=== PATIENT | female | born 1970 | race Two or more races ===

== ENCOUNTER → 2019-10-20 | Emergency (ER) | payer OTHER ==
[~2019-10-20] VITALS: Ht 165.1 cm; Wt 90.7 kg
[~2019-10-20] MED LIST: HYDROmorphone HCL 2 MG/ML VL IM ONE; IBUPROFEN 800 MG TAB PO ONE; PROMETHAZINE W/CODEINE 5 ML ORAL SYRUP PO ONE; levoFLOXacin 500 MG TAB PO ONE
[2019-10-20 13:20] VITALS: BP 135/81
[2019-10-20 16:32] LABS: Urine Bacteria MANY /hpf (None Seen); Urine Blood 1+ /uL (Negative); Urine Specific Gravity 1.017 (1.001-1.035); Urine WBC 227 /hpf (0 - 5); Urine WBC Clumps PRESENT /hpf (None Seen)
== END | disposition home or self-care (01) ==
LOC: ER 10:42
DX: R07.89 Other chest pain (principal); J40 Bronchitis, not specified as acute or chronic; E11.9 Type 2 diabetes mellitus without complications; I10 Essential (primary) hypertension; Z90.49 Acquired absence of other specified parts of digestive tract
CPT/HCPCS: 71046; 81001; 87501; 87804; 93005

== ENCOUNTER 2024-10-05 12:27 | Emergency (ER) | payer OTHER, BC ==
[~2024-10-05] VITALS: Ht 167.6 cm; Wt 113.5 kg
[2024-10-05] MEDS: levETIRAcetam 1000 mg/100ml 100 ML IV ONE (13:10)
[2024-10-05] MEDS: SODIUM CHLORIDE 0.9% 1,000 ML IV ONE ×2 (13:10→17:26)
--- NOTE | 2024-10-05 13:13 | ED.PDOC ---
HPI (NEURO) HPI Comments 53Y F with PMHx DM, HTN, and CVA presents to ED via EMS for chief complaint seizure x today. Per EMS, tonic-clonic seizure was witnessed by family who stated pt had been seizing for approximately 10 minutes prior to EMS arrival on scene. Upon EMS arrival to scene, SpO2 was in the high 80s so pt was placed on 2L/min O2 via NC. EMS states pt was actively seizing when they arrived and provided pt with Versed 5mg IM and 2.5mg IV. Upon ED arrival, pt began to seize again and was given another Versed 2.5mg IV. Per EMS, family states seizures began after CVA. Unknown when CVA occurred. Pt is currently taking Lorazepam. Chief Complaint: Seizure Time Seen by MD: 12:45 Reviewed Notes: Nurses Notes, Plate Keeper Notes, Medications, Allergies Information Source: Emergency Med Personnel Mode of Arrival: EMS Brought in by: EMS Severity: Moderate Dizziness/Weakness Severity: Unable to do activities Headache Severity: None Timing: Minutes Duration: Since onset Prehospital treatment: Oxygen, Other (versed 5mg IM, 2.5mg IV, 2.5mg IV) Seizure Quality: Tonic-clonic Onset: At rest Circumstances: Spontaneous Symptoms: Other History of: CVA, DM, Hypertension Modifying factors: Nothing Associated Signs and Symptoms: Other Past Medical History PAST MEDICAL HISTORY: CVA, DM, HTN, Seizures Past Medical History (Other): Cyclic vomiting syndrome Surgical History: Cholecystectomy, Hysterectomy EXTERIOR [employer]OR INST[employer]ER History: 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 No meningeal signs.) Respiratory: Decreased Breath Sounds, No Accessory Muscle Use, No Respiratory Distress Cardiovascular: No Edema, No JVD Breast Exam: Deferred Gastrointestinal: Non Tender, Soft Genitalia: Deferred Pelvic: Deferred Rectal: Deferred Extremities: Normal inspection, Normal range of motion, Non-tender, No pedal edema Neurologic: Other (Somnolent/postictal, arousable, moves all extremities, no facial asymmetry or dysarthria, no gross focal deficit.) Cerebellar Function: NOT DONE Reflexes: NOT DONE Skin: Dry, Normal Color, Warm Lymphatic: NOT DONE EKG EKG : Comments Sinus tach, rate 114, normal intervals, normal axis, left anterior fascicular block, nonspecific T changes. Was a procedure done? Was a procedure done?: No Differential Diagnosis (SZ) Seizure: Psychogenic Seizure, Anticonvulsant Withdrawl, Closed Head Injury, CVA/TIA, Hypoglycemia, Epilepsy-Break Through, Epilepsy-Status CVA: CVA, TIA Headache: Carbon Monoxide Toxicity, Epidural Hemorrhage, Intracerebral Hemorrhage, Subarachnoid Hemorrhage, Subdural Hemorrhage X-Ray, Labs, Meds, VS Vital Signs Date Time Temp Pulse Resp B/P (MAP) Pulse Ox O2 Delivery O2 Flow Rate FiO2 10/05/24 17:49 98.4 99 13 100/65 (77) 95 98.4 10/05/24 17:27 102 16 122/77 (92) 96 10/05/24 17:26 101 14 122/77 10/05/24 16:06 103 12 94/56 (69) 97 10/05/24 16:00 105 10/05/24 15:52 104 11 94/56 10/05/24 15:14 104 17 136/114 10/05/24 14:53 198/116 10/05/24 14:01 98.9 104 16 205/117 (146) 99 98.9 10/05/24 14:01 104 12 99 Nasal Cannula* 2 28 10/05/24 12:44 114 10/05/24 12:27 102.1 112 12 130/81 (97) 99 Lab Test 10/05/24 16:15 10/05/24 14:28 10/05/24 13:43 10/05/24 13:16 Range/Units Influenza Type A Antigen Negative Negative Influenza Type B Antigen Negative Negative SARS-CoV-2 Antigen (Rapid) Negative NEGATIVE Troponin I High Sensitivity 20 18 </=34 ng/L Urine Color Light-yellow Yellow Urine Clarity Clear Clear Urine pH 7.0 5.0-9.0 Urine Specific [place] 1.019 1.001-1.035 Urine Protein 3+ H Negative Urine Ketones 1+ H Negative Urine Blood 1+ H Negative /uL Urine Nitrite Negative Negative Urine Bilirubin Negative Negative Urine Urobilinogen Normal Negative mg/dL Urine Leukocyte Esterase Negative Negative /uL Urine RBC 14 0 - 4 /hpf Urine Microscopic WBC 1 0-5 /HPF Urine Squamous Epithelial Cells None seen <5 /hpf Urine Bacteria None seen None Seen /hpf Urine Glucose 4+ H Normal mg/dL White Blood Count 10.5 4.4-10.8 10^3/uL Red Blood Count 4.66 4.0-5.20 10^6/uL Hemoglobin 14.4 12.2-16.2 g/dL Hematocrit 41.9 36.0-46.0 % Mean Corpuscular Volume 90.0 80.0-100.0 fL Mean Corpuscular Hemoglobin 31.0 28.0-32.0 pg Mean Corpuscular Hemoglobin Concent 34.5 32.0-36.0 g/dL Red Cell Distribution Width 13.3 11.8-14.3 % Platelet Count 250 140-450 10^3/uL Mean Platelet Volume 9.4 6.9-10.8 fL Neutrophils (%) (Auto) 86.4 H 37.0-80.0 % Lymphocytes (%) (Auto) 9.4 L 10.0-50.0 % Monocytes (%) (Auto) 3.5 0.0-12.0 % Eosinophils (%) (Auto) 0.4 0.0-7.0 % Basophils (%) (Auto) 0.3 0.0-2.0 % Neutrophils # (Auto) 9.1 H 1.6-8.6 10 ^3/uL Lymphocytes # (Auto) 1.0 0.4-5.4 10 ^3/uL Monocytes # (Auto) 0.4 0-1.3 10 ^3/uL Eosinophils # (Auto) 0 0-0.8 10 ^3/uL Basophils # (Auto) 0 0-0.2 10 ^3/uL Nucleated Red Blood Cells 0.1 % Sodium Level 133 L 136-145 mmol/L Potassium Level 5.1 3.5-5.1 mmol/L Chloride Level 99 98-107 mmol/L Carbon Dioxide Level 26 20-31 mmol/L Anion Gap 8 5-15 Blood Urea Nitrogen 18 9-23 mg/dL Creatinine 1.33 H 0.550-1.02 mg/dL Glomerular Filtration Rate Calc 48 >90 mL/min BUN/Creatinine Ratio 13.5 10.0-20.0 Serum Glucose 435 *H 74-106 mg/dL Lactic Acid Level 1.7 0.4-2.0 mmol/L Calcium Level 9.8 8.7-10.4 mg/dL B-Type Natriuretic Peptide 21.36 0-100 pg/mL Beta HCG, Quantitative 4.6 H 1.5-4.2 mIU/mL Test 10/05/24 12:53 10/05/24 12:52 Range/Units POC Glucose 402 *H 437 *H 70-106 mg/dl Current Medications Medications (Trade) Dose Ordered Sig/Gordon Route Start Time Stop Time Status Last Admin Sodium Chloride 1,000 ml @ 1,000 mls/hr Q1H ONCE IV 10/05/24 13:00 10/05/24 13:59 DC 10/05/24 13:10 Levetiracetam 100 ml @ 400 mls/hr ONCE ONCE IV 10/05/24 13:00 10/05/24 13:14 DC 10/05/24 13:10 Hydralazine HCl (Apresoline Injection) 10 mg ONCE ONCE IV 10/05/24 15:00 10/05/24 15:01 DC 10/05/24 14:53 Ondansetron HCl (Zofran) 4 mg ONCE ONCE IV 10/05/24 15:15 10/05/24 15:16 DC 10/05/24 15:13 Hydromorphone HCl (Dilaudid Injection) 0.5 mg ONCE ONCE IV 10/05/24 15:15 10/05/24 15:16 DC 10/05/24 15:14 Hydromorphone HCl (Dilaudid Injection) 0.5 mg ONCE ONCE IV 10/05/24 15:30 10/05/24 15:31 DC 10/05/24 17:26 Sodium Chloride 1,000 ml @ 1,000 mls/hr Q1H ONCE IV 10/05/24 15:30 10/05/24 16:29 DC 10/05/24 17:26 ORDERING PHYSICIAN: DYLLAN GUADALUPE MD PROCEDURE(s): HWOCT - HEAD WITHOUT CONTRAST REASON: seiz ORDER NUMBER(s): [id number], ACCESSION NUMBER(s): [id number] EXAM: CT Head Without Intravenous Contrast CLINICAL INDICATION: seiz TECHNIQUE: Axial computed tomography images of the head/brain without intravenous contrast. This CT exam was performed using one or more of the following dose reduction techniques: automated exposure control, adjustment of the mA and/or kV according to patient size, and/or use of iterative reconstruction technique. CONTRAST: RADIATION DOSE: CTDIvol = 54.73 mGy, DLP = 877.35 mGy-cm COMPARISON: None FINDINGS: BRAIN AND EXTRA-AXIAL SPACES: Unremarkable. No hemorrhage. No significant white matter disease. No edema. No ventriculomegaly. BONES/JOINTS: Unremarkable. No acute fracture. SOFT TISSUES: Unremarkable. SINUSES: Unremarkable as visualized. No acute sinusitis. MASTOID AIR CELLS: Unremarkable as visualized. No mastoid effusion. OTHER FINDINGS: . None. IMPRESSION: No acute intracranial hemorrhage, midline shift or mass effect. RING PHYSICIAN: DYLLAN GUADALUPE MD PROCEDURE(s): CXRP - CHEST PORTABLE REASON: fever, sz ORDER NUMBER(s): [id number], ACCESSION NUMBER(s): [id number] EXAM: XY CHEST PORTABLE HISTORY: fever, sz COMPARISON: Chest x-ray dated 10/20/2019. TECHNIQUE: Portable AP view of the chest was performed. FINDINGS: There is central interstitial prominence. No pneumothorax or consolidative infiltrates. Right hemidiaphragm is mildly elevated. The heart is borderline enlarged. There is abundant overlying adipose tissue. IMPRESSION: Central interstitial prominence may be due to reactive airways disease or CHF. This appearance may be exaggerated by abundant overlying soft tissue. RING PHYSICIAN: DYLLAN GUADALUPE MD PROCEDURE(s): ABPL - CT AB PEL WO CON-NO ORAL OR IV REASON: abd pain n/v fever ORDER NUMBER(s): [id number], ACCESSION NUMBER(s): [id number] Exam: CT CT AB PEL WO CON-NO ORAL OR IV History: abd pain n/v fever Comparison Study: None available TECHNIQUE: Multidetector CT of the abdomen and pelvis was performed from lung ba ses to pubic symphysis. Imaging was performed without IV contrast. Axial, coronal, and sagittal multiplanar reformats were obtained from the axial data set by the technologist. RADIATION DOSE: DLP 1505.4 mGy.cm; CTDI vol 27.63 mGy. Findings: Lungs: The lung bases are clear. Heart: No cardiomegaly or pericardial effusion. Liver: Fatty infiltration of the liver. 0.5 cm calcification near the caudate. The liver measures 24.6 cm in craniocaudal dimension. Gallbladder: Unremarkable. Spleen: Unremarkable Pancreas: Unremarkable Adrenals: Unremarkable Kidneys: Unremarkable GI tract: Unremarkable : The urinary bladder is decompressed via Cantu catheter. Vasculature: Mild aortoiliac atherosclerosis. Lymphadenopathy: Absent Peritoneum: No ascites Musculoskeletal: Unremarkable Soft tissues: Unremarkable Impression: 1. No acute abdominopelvic abnormalities. 2. Hepatomegaly with hepatic steatosis. X-Ray, Labs, Meds, VS Comment 53-year-old female with a history of hypertension, diabetes, CVA and seizures brought in by EMS after witnessed seizure activity, resolved with IM and IV Versed . On re-evaluation when patient was alert, she stated she was having abdominal pain, nausea and vomiting all morning. She states she has a history of cyclic vomiting for which she usually receives Dilaudid and Zofran. She denies any recent sick contacts, diarrhea or dysuria. Vitals remarkable for heart rate 112, temperature 102.1, BP 198/116 Exam remarkable for postictal state, arousable, moves all extremities, no gross focal deficit Rhythm Strip independently interpreted by me: Sinus tach, rate 112, no ectopy. Head CT IMPRESSION: No acute intracranial hemorrhage, midline shift or mass effect. Chest x-ray IMPRESSION: Central interstitial prominence may be due to reactive airways disease or CHF. This appearance may be exaggerated by abundant overlying soft tissue. CT abdomen and pelvis Impression: 1. No acute abdominopelvic abnormalities. 2. Hepatomegaly with hepatic steatosis. CBC unremarkable, metabolic panel remarkable for sodium 133, creatinine 1.33, glucose 435, normal anion gap, UA protein, blood and ketones, 4+ glucose Patient treated with the following in the ED: 1 L 0.9 normal saline IV bolus x2, Keppra 1 g IV, Tylenol 975 mg GA, Dilaudid 0.5 mg IV x2, Zofran 4 mg IV On re-evaluation, patient is more alert and conversant. Vitals have improved. LP was considered, however patient denies headache, neck or back pain, has no tenderness or meningeal signs on exam, and white count is normal. I do not feel LP is emergently indicated. Plan is to admit/transfer the patient for further investigation into her febrile illness, and for ongoing seizure prophylaxis. Time of 1ST Reevaluation: 13:15 Reevaluation 1ST: Unchanged Patient Education/Counseling: Other (postictal) Family Education/Counseling: No Family Present Departure 1 Departure Time of Disposition: 15:16 Impression: Primary Impression: Seizure Additional Impressions: Febrile illness Hyperglycemia Hyponatremia Abdominal pain Qualified Codes: R10.84 - Generalized abdominal pain Nausea and vomiting Qualified Codes: R11.2 - Nausea with vomiting, unspecified Disposition: 02 SHORT TERM HOSPITAL Admit to: [facility] Condition: Guarded Critical Care Note Critical Care Time?: No Stability Stability form required: No Heart Score Heart Score: Heart Score Response (Comments) Value History N/A 0 EKG N/A 0 Age N/A 0 Risk Factors N/A 0 Troponin N/A 0 Total 0 I personally scribed for DYLLAN GUADALUPE MD ([email or web address]) on 10/05/24 at 13:13. Electronically submitted by Beverly Evans ([email or web address]). I personally scribed for DYLLAN GUADALUPE MD ([email or web address]) on 10/05/24 at 14:55. Electronically submitted by Beverly Evans ([email or web address]). I personally scribed for DYLLAN GUADALUPE MD ([email or web address]) on 10/05/24 at 16:25. Electronically submitted by Beverly Evans ([email or web address]). DYLLAN GUADALUPE MD Oct 05, 2024 13:13
[2024-10-05 13:48] LABS: Chloride 99 mmol/L (98-107)
[2024-10-05 13:49] LABS: Anion Gap 8 (5-15); Calcium 9.8 mg/dL (8.7-10.4); Carbon Dioxide 26 mmol/L (20-31)
[2024-10-05 13:50] LABS: Basophils # (auto) 0 10 ^3/uL (0-0.2); Basophils % (auto) 0.3 % (0.0-2.0); Eosinophils # (auto) 0 10 ^3/uL (0-0.8); Eosinophils % (auto) 0.4 % (0.0-7.0); Hematocrit 41.9 % (36.0-46.0); Hemoglobin 14.4 g/dL (12.2-16.2); Lymphocytes % (auto) 9.4 % (10.0-50.0); Mean Corpuscular Hgb Conc. 34.5 g/dL (32.0-36.0); Monocytes # (auto) 0.4 10 ^3/uL (0-1.3); Monocytes % (auto) 3.5 % (0.0-12.0); Neutrophils # (auto) 9.1 10 ^3/uL (1.6-8.6); Neutrophils % (auto) 86.4 % (37.0-80.0); Nucleated Red Blood Cells % 0.1 %; Platelet Count (auto) 250 10^3/uL (140-450); Red Blood Cells 4.66 10^6/uL (4.0-5.20); Red Cell Distribution Width 13.3 % (11.8-14.3); White Blood Cell 10.5 10^3/uL (4.4-10.8)
[2024-10-05 13:54] LABS: BUN/Creatinine Ratio 13.5 (10.0-20.0); Blood Urea Nitrogen 18 mg/dL (9-23)
[2024-10-05 13:55] LABS: Urine Bacteria None Seen /hpf (None Seen)
[2024-10-05] MEDS: ACETAMINOPHEN 650 MG RECT SUPP PR ONE (14:00)
[2024-10-05 14:01] VITALS: PULSE 104; RESP 12; O2SAT 99
[2024-10-05 14:01] LABS: Potassium 5.1 mmol/L (3.5-5.1); Sodium 133 mmol/L (136-145)
[2024-10-05 14:02] LABS: Glucose 435 mg/dL (74-106)
[2024-10-05 14:23] LABS: Urine Blood 1+ /uL (Negative); Urine Clarity Clear (Clear); Urine Color Light-Yellow (Yellow); Urine Protein, UAD 3+ (Negative); Urine Specific Gravity 1.019 (1.001-1.035); Urine Squamous Epithelial Cell None Seen /hpf (<5); Urine Urobilinogen Normal (Negative); Urine WBC 1 /HPF (0-5)
--- NOTE | 2024-10-05 14:36 | DVH ---
EXAM: XY CHEST PORTABLE HISTORY: fever, sz COMPARISON: Chest x-ray dated 10/20/2019. TECHNIQUE: Portable AP view of the chest was performed. FINDINGS: There is central interstitial prominence. No pneumothorax or consolidative infiltrates. Right hemidia phragm is mildly elevated. The heart is borderline enlarged. There is abundant overlying adipose tiss ue. IMPRESSION: Central interstitial prominence may be due to reactive airways disease or CHF. This appearance may be exaggerated by abundant overlying soft tissue.
--- NOTE | 2024-10-05 14:52 | DVH ---
EXAM: CT Head Without Intravenous Contrast CLINICAL INDICATION: seiz TECHNIQUE: Axial computed tomography images of the head/brain without intravenous contrast. This CT exam was performed using one or more of the following dose reduction techniques: automated exposure control, adjustment of the mA and/or kV according to patient size, and/or use of iterative reconstru ction technique. CONTRAST: RADIATION DOSE: CTDIvol = 54.73 mGy, DLP = 877.35 mGy-cm COMPARISON: None FINDINGS: BRAIN AND EXTRA-AXIAL SPACES: Unremarkable. No hemorrhage. No significant white matter disease. No edema. No ventriculomegaly. BONES/JOINTS: Unremarkable. No acute fracture. SOFT TISSUES: Unremarkable. SINUSES: Unremarkable as visualized. No acute sinusitis. MASTOID AIR CELLS: Unremarkable as visualized. No mastoid effusion. OTHER FINDINGS: . None. IMPRESSION: No acute intracranial hemorrhage, midline shift or mass effect.
[2024-10-05] MEDS: hydrALAZINE HCL 20 MG/ML VL IV ONE (14:53)
[2024-10-05] MEDS: hydrALAZINE HCL 20 MG/ML VL ONE (14:53)
[2024-10-05] MEDS: ONDANSETRON HCL 4 MG/2 ML VIAL IV ONE (15:13)
[2024-10-05] MEDS: HYDROmorphone HCL 2 MG/ML VL/or syr IV ONE ×2 (15:14→17:26)
--- NOTE | 2024-10-05 16:09 | DVH ---
Exam: CT CT AB PEL WO CON-NO ORAL OR IV History: abd pain n/v fever Comparison Study: None available TECHNIQUE: Multidetector CT of the abdomen and pelvis was performed from lung bases to pubic symphysi s. Imaging was performed without IV contrast. Axial, coronal, and sagittal multiplanar reformats were obtained from the axial data set by the technologist. RADIATION DOSE: DLP 1505.4 mGy.cm; CTDI vol 27.63 mGy. Findings: Lungs: The lung bases are clear. Heart: No cardiomegaly or pericardial effusion. Liver: Fatty infiltration of the liver. 0.5 cm calcification near the caudate. The liver measures 24. 6 cm in craniocaudal dimension. Gallbladder: Unremarkable. Spleen: Unremarkable Pancreas: Unremarkable Adrenals: Unremarkable Kidneys: Unremarkable GI tract: Unremarkable : The urinary bladder is decompressed via Cantu catheter. Vasculature: Mild aortoiliac atherosclerosis. Lymphadenopathy: Absent Peritoneum: No ascites Musculoskeletal: Unremarkable Soft tissues: Unremarkable Impression: 1. No acute abdominopelvic abnormalities. 2. Hepatomegaly with hepatic steatosis.
[2024-10-05] MEDS: cefTRIAXone 1GM/50ML D5W 50 ML IV ONE (16:45)
[2024-10-05 16:56] LABS: COVID19 ANTIGEN SOFIA FIA NEGATIVE (NEGATIVE); Rapid Influenza A Negative (Negative); Rapid Influenza B Negative (Negative)
[2024-10-05 17:49] VITALS: BP 100/65; PULSE 99; RESP 13; TEMP 98.4; O2SAT 95
--- NOTE | 2024-10-07 13:58 | ECG ---
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
== END 2024-10-05 18:07 | disposition short-term general hospital (02) ==
LOC: EDUNIT# 12:27 → ER 12:27 → EDBD 12:27 → ER 17:46
DX: R56.9 Unspecified convulsions (principal); R50.9 Fever, unspecified; E87.1 Hypo-osmolality and hyponatremia; R10.9 Unspecified abdominal pain; R11.2 Nausea with vomiting, unspecified; E11.65 Type 2 diabetes mellitus with hyperglycemia; I10 Essential (primary) hypertension; Z90.49 Acquired absence of other specified parts of digestive tract; Z90.710 Acquired absence of both cervix and uterus; Z86.73 Personal history of transient ischemic attack (TIA), and cerebral infarction without residual deficits; Z79.899 Other long term (current) drug therapy; Z20.822 Contact with and (suspected) exposure to COVID-19
CPT/HCPCS: 36415; 70450; 71045; 74176; 80048; 81001; 82962; 83605; 83880; 84484; 84702; 85025; 87040; 87426; 87804; 93005; 96361; 96365; 96375; 96376; 99285; J0360; J1171; J1953; J2405; J7030

== ENCOUNTER 2024-11-28 18:55 | Emergency (ER) | payer OTHER, BC ==
[~2024-11-28] VITALS: Ht 170.2 cm; Wt 123.0 kg
--- NOTE | 2024-11-28 19:09 | ED.PDOC ---
History of Present Illness HPI Comments 54-year-old female with a history of hypertension, diabetes, seizures and cyclic vomiting syndrome brought in by EMS from home status post seizure. Patient reported to EMS that she has had 3 seizures today and 1 yesterday. She also reports being compliant with her Keppra. She states she has had an exacerbation of chronic intermittent abdominal pain which is pressure-like and associated with nausea and vomiting. She states these symptoms are due to cyclic vomiting syndrome, not due to marijuana use. She denies fever, diarrhea, constipation or dysuria. Denies any headache, vision changes, dizziness or focal weakness. Chief Complaint: Seizure Time Seen by MD: 18:58 Allergies: Coded Allergies: Acetaminophen (Verified Allergy, Unknown, 10/20/19) Hydrocodone (Verified Allergy, Unknown, 10/20/19) Metformin (Verified Allergy, Unknown, 10/20/19) Metoclopramide (Verified Allergy, Unknown, 10/20/19) Penicillins (Verified Allergy, Unknown, 10/20/19) Past Medical History PAST MEDICAL HISTORY: CVA, DM, HTN, Seizures Past Medical History (Other): Cyclic vomiting Surgical History: Cholecystectomy, Hysterectomy METALIZING SUPERVISOR History: No Pertinent METALIZING SUPERVISOR History Family History Family History: Reviewed,noncontributory to illness Social History Smoker: Non-Smoker Alcohol: Denies ETOH Use Drugs: Denies Drug Use Lives In: Home All Other Systems: Reviewed and Negative (Comprehensive systems review obtained and negative except for what is stated in the HPI.) Physical Exam General Appearance: No Apparent Distress, Obese HEENT: Other (Pupils and face symmetric. Moist mucous membranes.) Neck: Full Range of Motion (ty-seven), Normal Inspection Respiratory: Lungs Clear, No Accessory Muscle Use, No Respiratory Distress, Normal Breath Sounds Cardiovascular: No Edema, No JVD, Regular Rate/Rhythm Breast Exam: Deferred Gastrointestinal: Diffuse, Soft, Tenderness Genitalia: Deferred Pelvic: Deferred Rectal: Deferred Extremities: Normal inspection, Normal range of motion, Non-tender, No pedal edema Neurologic: Alert (Oriented x4), Normal Affect, Normal Mood, Other (Ambulatory to and from the restroom without difficulty) Cerebellar Function: NOT DONE Reflexes: NOT DONE Skin: Dry, Normal Color, Warm Lymphatic: NOT DONE Was a procedure done? Was a procedure done?: No Differential Dx Considerations may include: Breakthrough seizure, electrolyte imbalance, infection such as UTI or viral syndrome, gastroenteritis, gastritis, ulcer disease, pancreatitis, biliary tract disease, colitis, diverticular disease, hypovolemia, arrhythmia, VT, among others X-Ray, Labs, Meds, VS Vital Signs Date Time Temp Pulse Resp B/P (MAP) Pulse Ox O2 Delivery O2 Flow Rate FiO2 11/28/24 20:37 99 21 94 Nasal Cannula* 4 36 11/28/24 20:10 91 16 137/81 (99) 97 11/28/24 20:00 89 11/28/24 19:30 98.4 99 21 195/102 (133) 94 98.4 11/28/24 19:04 98.6 108 18 186/112 (136) 97 98.6 Lab Test 11/28/24 20:58 11/28/24 20:16 11/28/24 19:25 Range/Units POC Glucose 373 H 70-106 mg/dl Troponin I High Sensitivity 28 31 </=34 ng/L White Blood Count 7.5 4.4-10.8 10^3/uL Red Blood Count 4.82 4.0-5.20 10^6/uL Hemoglobin 14.5 12.2-16.2 g/dL Hematocrit 43.3 36.0-46.0 % Mean Corpuscular Volume 89.8 80.0-100.0 fL Mean Corpuscular Hemoglobin 30.1 28.0-32.0 pg Mean Corpuscular Hemoglobin Concent 33.5 32.0-36.0 g/dL Red Cell Distribution Width 13.9 11.8-14.3 % Platelet Count 264 140-450 10^3/uL Mean Platelet Volume 8.8 6.9-10.8 fL Neutrophils (%) (Auto) 88.6 H 37.0-80.0 % Lymphocytes (%) (Auto) 6.4 L 10.0-50.0 % Monocytes (%) (Auto) 4.7 0.0-12.0 % Eosinophils (%) (Auto) 0.0 0.0-7.0 % Basophils (%) (Auto) 0.3 0.0-2.0 % Neutrophils # (Auto) 6.7 1.6-8.6 10 ^3/uL Lymphocytes # (Auto) 0.5 0.4-5.4 10 ^3/uL Monocytes # (Auto) 0.4 0-1.3 10 ^3/uL Eosinophils # (Auto) 0 0-0.8 10 ^3/uL Basophils # (Auto) 0 0-0.2 10 ^3/uL Nucleated Red Blood Cells 0.0 % Sodium Level 141 136-145 mmol/L Potassium Level 3.9 3.5-5.1 mmol/L Chloride Level 106 98-107 mmol/L Carbon Dioxide Level 20 20-31 mmol/L Anion Gap 15 5-15 Blood Urea Nitrogen 20 9-23 mg/dL Creatinine 1.20 H 0.550-1.02 mg/dL Glomerular Filtration Rate Calc 54 >90 mL/min BUN/Creatinine Ratio 16.7 10.0-20.0 Serum Glucose 459 *H 74-106 mg/dL Calcium Level 9.7 8.7-10.4 mg/dL Total Bilirubin 0.5 0.2-1.0 mg/dL Aspartate Amino Transferase (AST) 17 13-40 U/L Alanine Aminotransferase (ALT) 21 7-40 U/L Alkaline Phosphatase 130 H 46-116 U/L B-Type Natriuretic Peptide 71.94 0-100 pg/mL Total Protein 7.5 5.7-8.2 g/dL Albumin 4.4 3.2-4.8 g/dL Lipase 31 12-53 U/L Current Medications Medications (Trade) Dose Ordered Sig/Gordon Route Start Time Stop Time Status Last Admin Sodium Chloride 1,000 ml @ 1,000 mls/hr Q1H ONCE IV 11/28/24 19:00 11/28/24 19:59 DC 11/28/24 19:23 Ondansetron HCl (Zofran) 4 mg ONCE ONCE IV 11/28/24 19:15 11/28/24 19:16 DC 11/28/24 19:40 Pantoprazole Sodium (Protonix) 40 mg ONCE ONCE IV 11/28/24 19:15 11/28/24 19:16 DC 11/28/24 19:40 Levetiracetam 100 ml @ 400 mls/hr ONCE ONCE IV 11/28/24 19:15 11/28/24 19:29 DC 11/28/24 19:23 Lorazepam (Ativan Inj) 2 mg ONCE ONCE IV 11/28/24 19:30 11/28/24 19:31 DC 11/28/24 19:24 Insulin Human Regular (InsuLIN R) 10 units ONCE ONCE IV 11/28/24 20:45 11/28/24 20:50 DC 11/28/24 20:58 PROCEDURE(s): CXRP - CHEST PORTABLE REASON: sz ORDER NUMBER(s): [id number], ACCESSION NUMBER(s): [id number] CHEST RADIOGRAPH Indication: sz Technique: Single frontal view of the chest was obtained COMPARISON: XY CHEST PORTABLE on DOS: 10/05/24 FINDINGS / IMPRESSION: Lines and Tubes: None Lungs: Mild increased pulmonary vascularity, peribronchial thickening and perihilar opacities consistent with mild pulmonary edema. Pleura: No effusion. No pneumothorax. Cardiomediastinal contours: Unremarkable EDURE(s): ABPL - CT AB PEL WO CON-NO ORAL OR IV REASON: diffuse abd pain n/v ORDER NUMBER(s): [id number], ACCESSION NUMBER(s): [id number] EXAM: CT CT AB PEL WO CON-NO ORAL OR IV INDICATION: diffuse abd pain n/v TECHNIQUE: Volumetric multidetector CT images of the abdomen and pelvis were obtained without contrast. All CT scans at this facility use dose modulation, iterative reconstruction, and/or weight based dosing when appropriate to reduce radiation dose to as low as reasonably achievable. COMPARISON: CT CT AB PEL WO CON-NO ORAL OR IV on DOS: 10/05/24 FINDINGS: LOWER CHEST: The partially visualized lung bases are clear without a pleural effusion. The cardiac size is normal without pericardial effusion. LIVER: Normal hepatic size without suspicious focal lesion. GALLBLADDER AND BILIARY TREE: Cholecystectomy SPLEEN: Unremarkable. PANCREAS: Unremarkable. ADRENAL GLANDS: Unremarkable KIDNEYS: No hydronephrosis. No nephroureterolithiasis. Mild right pelviectasis and mild right hydroureter. Distal right ureter is poorly visualized. BLADDER: Bladder is distended without wall thickening REPRODUCTIVE ORGANS: Hysterectomy. BOWEL/MESENTERY: Stomach is normal. No CT evidence of bowel obstruction. [id number] stool burden. Nonvisualization of the appendix. Postsurgical changes with suspicious anastomosis at the level of the high rectum. ASCITES: Absent LYMPHADENOPATHY: No pathologically enlarged lymph nodes by CT size criteria VASCULATURE: No aneurysmal dilatation. ABDOMINAL WALL: Unremarkable. MUSCULOSKELETAL: No acute fracture or aggressive focal osseous lesion. Multifocal degenerative change of the visualized spine. IMPRESSION: 1. No CT evidence of an acute abdominal/pelvic process. Stool burden. Correlate for constipation. Bladder is distended without abnormal bladder wall thickening. Subsequent mild right pelviectasis and mild right hydroureter. X-Ray, Labs, Meds, VS Comment 54-year-old female with a history of seizures, hypertension, diabetes, morbid obesity and cyclic vomiting brought in by EMS from home status post multiple seizures starting yesterday, associated with nausea, vomiting and abdominal pain which patient states is characteristic of prior exacerbations of cyclic vomiting syndrome. Vitals remarkable for heart rate 108, BP 186/112 Exam remarkable for diffuse abdominal tenderness to palpation. No rebound or guarding. Rhythm strip independently interpreted by me: Sinus tach, rate 108, no ectopy. Chest x-ray FINDINGS / IMPRESSION: Lines and Tubes: None Lungs: Mild increased pulmonary vascularity, peribronchial thickening and perihilar opacities consistent with mild pulmonary edema. Pleura: No effusion. No pneumothorax. Cardiomediastinal contours: Unremarkable CT abdomen and pelvis IMPRESSION: 1. No CT evidence of an acute abdominal/pelvic process. Stool burden. Correlate for constipation. Bladder is distended without abnormal bladder wall thickening. Subsequent mild right pelviectasis and mild right hydroureter. CBC unremarkable, CMP remarkable for creatinine 1.2, glucose 459, normal anion gap, lipase normal, BNP and troponin negative, UA pending Patient treated with the following in the ED: Ativan 2 mg IV, 1 L 0.9 normal saline IV bolus, Keppra 1 g IV, Zofran 4 mg IV, morphine 4 mg IV, Protonix 40 mg IV, Benadryl 25 mg IV Shortly after patient was transferred to a bed, she had another tonic-clonic seizure lasting approximately 1 minute and resolved with IV Ativan. On re-evaluation, patient states pain has improved. She has had no further seizure activity. Abdominal exam is benign and vitals were stable. Plan is to admit transfer the patient for neurology evaluation and glucose control. Case discussed with Dr. Downey at [facility], who will arrange for ER to ER transfer. Authorization [id number] Time of 1ST Reevaluation: 20:43 Reevaluation 1ST: Improved Patient Education/Counseling: Diagnosis, Treatment Family Education/Counseling: No Family Present Departure 1 Departure Time of Disposition: 20:45 Impression: Primary Impression: Recurrent seizures Additional Impressions: Abdominal pain Qualified Codes: R10.84 - Generalized abdominal pain Nausea and vomiting Qualified Codes: R11.2 - Nausea with vomiting, unspecified Hyperglycemia Disposition: 02 [facility] Admit to: [facility] Condition: Guarded Critical Care Note Critical Care Time?: Yes (45 min-critical care time only) Critical care comment: Critical care time including multiple bedside re-evaluations, review of lab and imaging studies, and discussion of the case with the admitting provider. Patient is high risk for neurologic and/or metabolic decompensation. Stability Stability form required: No Heart Score Heart Score: Heart Score Response (Comments) Value History N/A 0 EKG N/A 0 Age N/A 0 Risk Factors N/A 0 Troponin N/A 0 Total 0 DYLLAN GUADALUPE MD Nov 28, 2024 19:09
[2024-11-28] MEDS: SODIUM CHLORIDE 0.9% 1,000 ML IV ONE (19:23)
[2024-11-28] MEDS: levETIRAcetam 1000 mg/100ml 100 ML IV ONE (19:23)
[2024-11-28] MEDS: LORazepam 2MG/ML-1ML VIAL ONE (19:24)
[2024-11-28] MEDS: LORazepam 2MG/ML-1ML VIAL IV ONE (19:24)
[2024-11-28] MEDS: ONDANSETRON HCL 4 MG/2 ML VIAL IV ONE (19:40)
[2024-11-28] MEDS: PANTOPRAZOLE 40 MG/10 ML VIAL INJ IV ONE (19:40)
[2024-11-28 19:45] LABS: Basophils # (auto) 0 10 ^3/uL (0-0.2); Basophils % (auto) 0.3 % (0.0-2.0); Eosinophils # (auto) 0 10 ^3/uL (0-0.8); Hematocrit 43.3 % (36.0-46.0); Hemoglobin 14.5 g/dL (12.2-16.2); Lymphocytes # (auto) 0.5 10 ^3/uL (0.4-5.4); Lymphocytes % (auto) 6.4 % (10.0-50.0); Mean Corpuscular Hemoglobin 30.1 pg (28.0-32.0); Mean Corpuscular Hgb Conc. 33.5 g/dL (32.0-36.0); Mean Corpuscular Volume 89.8 fL (80.0-100.0); Monocytes # (auto) 0.4 10 ^3/uL (0-1.3); Monocytes % (auto) 4.7 % (0.0-12.0); Neutrophils # (auto) 6.7 10 ^3/uL (1.6-8.6); Neutrophils % (auto) 88.6 % (37.0-80.0); Platelet Count (auto) 264 10^3/uL (140-450); Red Blood Cells 4.82 10^6/uL (4.0-5.20); Red Cell Distribution Width 13.9 % (11.8-14.3); White Blood Cell 7.5 10^3/uL (4.4-10.8)
[2024-11-28 20:00] LABS: Alanine Aminotransferase 21 U/L (7-40); Albumin 4.4 g/dL (3.2-4.8); Anion Gap 15 (5-15); Aspartate Aminotransferase 17 U/L (13-40); BUN/Creatinine Ratio 16.7 (10.0-20.0); Bilirubin, Total 0.5 mg/dL (0.2-1.0); Blood Urea Nitrogen 20 mg/dL (9-23); Calcium 9.7 mg/dL (8.7-10.4); Carbon Dioxide 20 mmol/L (20-31); Chloride 106 mmol/L (98-107); Potassium 3.9 mmol/L (3.5-5.1); Sodium 141 mmol/L (136-145); Total Protein 7.5 g/dL (5.7-8.2)
[2024-11-28 20:03] LABS: Alkaline Phosphatase 130 U/L (46-116)
[2024-11-28 20:04] LABS: Glucose 459 mg/dL (74-106)
--- NOTE | 2024-11-28 20:12 | DVH ---
CHEST RADIOGRAPH Indication: sz Technique: Single frontal view of the chest was obtained COMPARISON: XY CHEST PORTABLE on DOS: 10/05/24 FINDINGS / IMPRESSION: Lines and Tubes: None Lungs: Mild increased pulmonary vascularity, peribronchial thickening and perihilar opacities consist ent with mild pulmonary edema. Pleura: No effusion. No pneumothorax. Cardiomediastinal contours: Unremarkable
--- NOTE | 2024-11-28 20:12 | DVH ---
EXAM: CT CT AB PEL WO CON-NO ORAL OR IV INDICATION: diffuse abd pain n/v TECHNIQUE: Volumetric multidetector CT images of the abdomen and pelvis were obtained without contras t. All CT scans at this facility use dose modulation, iterative reconstruction, and/or weight based d osing when appropriate to reduce radiation dose to as low as reasonably achievable. COMPARISON: CT CT AB PEL WO CON-NO ORAL OR IV on DOS: 10/05/24 FINDINGS: LOWER CHEST: The partially visualized lung bases are clear without a pleural effusion. The cardiac si ze is normal without pericardial effusion. LIVER: Normal hepatic size without suspicious focal lesion. GALLBLADDER AND BILIARY TREE: Cholecystectomy SPLEEN: Unremarkable. PANCREAS: Unremarkable. ADRENAL GLANDS: Unremarkable KIDNEYS: No hydronephrosis. No nephroureterolithiasis. Mild right pelviectasis and mild right hydrour eter. Distal right ureter is poorly visualized. BLADDER: Bladder is distended without wall thickening REPRODUCTIVE ORGANS: Hysterectomy. BOWEL/MESENTERY: Stomach is normal. No CT evidence of bowel obstruction. [id number] stool burde n. Nonvisualization of the appendix. Postsurgical changes with suspicious anastomosis at the level of the high rectum. ASCITES: Absent LYMPHADENOPATHY: No pathologically enlarged lymph nodes by CT size criteria VASCULATURE: No aneurysmal dilatation. ABDOMINAL WALL: Unremarkable. MUSCULOSKELETAL: No acute fracture or aggressive focal osseous lesion. Multifocal degenerative change of the visualized spine. IMPRESSION: 1. No CT evidence of an acute abdominal/pelvic process. Stool burden. Correlate for constipation. Jordy dder is distended without abnormal bladder wall thickening. Subsequent mild right pelviectasis and mi ld right hydroureter.
[2024-11-28 20:37] VITALS: PULSE 99; RESP 21; O2SAT 94
[2024-11-28] MEDS: InsuLIN REG 1unit/0.01ml Soln (100units/ml) IV ONE (20:58)
[2024-11-28] MEDS ORDERED: METOCLOPRAMIDE HCL 5MG/ml INJ 2ml VIAL IV ONE (21:30)
[2024-11-28] MEDS: diphenhdrAMINE HCL 50 MG/1 ML VL IV ONE (21:38)
[2024-11-29 03:01] VITALS: BP 116/61; PULSE 80; RESP 13; TEMP 98.9; O2SAT 97
== END 2024-11-28 21:19 | disposition short-term general hospital (02) ==
LOC: EDBD 18:55 → ER 18:58
DX: G40.909 Epilepsy, unspecified, not intractable, without status epilepticus (principal); R10.84 Generalized abdominal pain; R11.2 Nausea with vomiting, unspecified; E11.65 Type 2 diabetes mellitus with hyperglycemia; I10 Essential (primary) hypertension; Z86.73 Personal history of transient ischemic attack (TIA), and cerebral infarction without residual deficits; Z90.49 Acquired absence of other specified parts of digestive tract; Z90.710 Acquired absence of both cervix and uterus; Z88.5 Allergy status to narcotic agent; Z88.0 Allergy status to penicillin; Z79.899 Other long term (current) drug therapy
CPT/HCPCS: 36415; 71045; 74176; 80053; 82947; 83690; 83880; 84484; 85025; 96374; 96375; 99291; J1200; J1815; J1953; J2060; J2405; J2470; 82962; 96365

== ENCOUNTER 2024-12-04 18:28 | Emergency (ER) | payer OTHER, BC ==
[~2024-12-04] VITALS: Ht 157.5 cm; Wt 109.0 kg
--- NOTE | 2024-12-04 19:17 | ED.PDOC ---
History of Present Illness HPI Comments 54 year old female presents to the ED via EMS with a chief complaint of seizures onset today. Per EMS, patient has a PMHx seizures, was seen at [facility] about 4 days ago and was transferred to [place] with a diagnosis of Pseudo seizures. Patient states she has been experiencing abdominal pain and nausea/vomiting for the past 3 days. Per EMS, patient' son noticed patient was experiencing generalized shaking for about 20 minutes, was given 5 mg Versed in route. Denies chest pain, shortness of breath, fever, cough, congestion, diarrhea, dysuria, hematuria. Chief Complaint: Seizure Time Seen by MD: 18:46 Primary Care Provider: UNKNOWN Reviewed Notes: Medications, Allergies Allergies: Coded Allergies: Metoclopramide (Verified Adverse Reaction, Unknown, ANXIETY, 12/04/24) PER PT SHE TAKES IT WITH BENADRYL Information Source: Patient, Emergency Med Personnel Mode of Arrival: EMS Severity: Moderate Timing: Hours Duration: Since onset Prehospital treatment: None Past Medical History PAST MEDICAL HISTORY: Seizures Surgical History: Denies all surgeries SENIOR MATERIALS PLANNER History: No Pertinent SENIOR MATERIALS PLANNER History Family History Family History: Unknown Social History Smoker: Non-Smoker Alcohol: Denies ETOH Use Drugs: Denies Drug Use Lives In: Home Constitutional: denies: chills, diaphoresis, fatigue, fever, malaise, sweats, weakness, others EENTM: denies: blurred vision, double vision, ear bleeding, ear discharge, ear drainage, ear pain, ear ringing, eye pain, eye redness, hearing loss, mouth pain, mouth swelling, nasal discharge, nose bleeding, nose congestion, nose pain, photophobia, tearing, throat pain, throat swelling, voice changes, others Respiratory: denies: cough, hemoptysis, orthopnea, SOB at rest, shortness of breath, SOB with excertion, stridor, wheezing, others Cardiovascular: denies: chest pain, dizzy spells, diaphoresis, Dyspnea on exertion, edema, irregular heart beat, left arm pain, lightheadedness, palpitations, PND, syncope, others Gastrointestinal: reports: abdominal pain, nausea, vomiting; denies: abdomen distended, blood streaked bowels, constipated, diarrhea, dysphagia, difficulty swallowing, hematemesis, melena, poor appetite, poor fluid intake, rectal bleeding, rectal pain, others Genitourinary: denies: abnormal vagina bleeding, burning, dyspareunia, dysuria, flank pain, frequency, hematuria, incontinence, pain, , vagina discharge, urgency, others Neurological: reports: seizure, others (shaking); denies: dizziness, fainting, headache, left sided numbness, left sided weakness, numbness, paresthesia, pre- existing deficit, right sided numbness, right sided weakness, speech problems, tingling, tremors, weakness Musculoskeletal: denies: back pain, gout, joint pain, joint swelling, muscle pain, muscle stiffness, neck pain, others Integumetry: denies: bruises, change in color, change in hair/nails, dryness, laceration, lesions, lumps, rash, wounds, others Allergic/Immunocompromised: denies: Difficulty Healing, Frequent Infections, H krystin, Itching, others Hematologic/Lymphatic: denies: anemia, blood clots, easy bleeding, easy bruising, swollen glands, others Endocrine: denies: excessive hunger, excessive sweating, excessive thirst, excessive urination, flushing, intolerance to cold, intolerance to heat, unexplained weight gain, unexplained weight loss, others Psychiatric: denies: anxiety, bipolar disorder, depression, hopeless, panic disorder, schizophrenia, sleepless, suicidal, others All Other Systems: Reviewed and Negative Physical Exam General Appearance: No Apparent Distress, Normal HEENT: Normal ENT Inspection, Pharynx Normal, TMs Normal Neck: Full Range of Motion, Non-Tender, Normal, Normal Inspection Respiratory: Chest Non-Tender, Lungs Clear, No Accessory Muscle Use, No Respiratory Distress, Normal Breath Sounds Cardiovascular: No Edema, No JVD, No Murmur, No Gallop, Normal Peripheral Pulses, Regular Rate/Rhythm Breast Exam: Deferred Gastrointestinal: No Organomegaly, Non Tender, No Pulsatile Mass, Normal Bowel Sounds, Soft Genitalia: Deferred Pelvic: Deferred Rectal: Deferred Extremities: No calf tenderness, Normal capillary refill, Normal inspection, Normal range of motion, Non-tender, No pedal edema Musculoskeletal : Apperance: Normal Neurologic: Alert, assistant general manager II-XII nml as Tested, No Motor Deficits, Normal Affect, Normal Mood, No Sensory Deficits Cerebellar Function: Normal Reflexes: Normal Skin: Dry, Normal Color, Warm Lymphatic: No Adenopathy Was a procedure done? Was a procedure done?: No Differential Dx Considerations may include: Seizure disorder, acute cystitis, gastroenteritis, viral syndrome, pseudoseizures X-Ray, Labs, Meds, VS Vital Signs Date Time Temp Pulse Resp B/P (MAP) Pulse Ox O2 Delivery O2 Flow Rate FiO2 12/05/24 02:25 94 16 132/64 (86) 92 12/04/24 23:30 94 16 132/64 (86) 92 12/04/24 21:35 93 16 140/84 (102) 92 12/04/24 20:40 93 20 167/96 12/04/24 20:10 101 30 167/96 12/04/24 20:00 92 90 Room Air* 0 21 12/04/24 19:52 98.2 91 14 130/67 (88) 91 98.2 12/04/24 18:34 98.6 101 16 193/103 (133) 98 98.6 Lab Test 12/04/24 22:50 12/04/24 19:22 Range/Units Urine Color Light-yellow Yellow Urine Clarity Turbid H Clear Urine pH 7.0 5.0-9.0 Urine Specific [place] 1.015 1.001-1.035 Urine Protein 3+ H Negative Urine Ketones Trace Negative Urine Blood Trace H Negative /uL Urine Nitrite Negative Negative Urine Bilirubin Negative Negative Urine Urobilinogen Normal Negative mg/dL Urine Leukocyte Esterase 2+ Negative /uL Urine RBC 14 0 - 4 /hpf Urine WBC Clumps Present None Seen /hpf Urine Microscopic WBC 97 H 0-5 /HPF Urine Squamous Epithelial Cells Few <5 /hpf Urine Bacteria None seen None Seen /hpf Urine Hyaline Casts Few 0 - 2 /lpf Urine Glucose 4+ H Normal mg/dL White Blood Count 7.0 4.4-10.8 10^3/uL Red Blood Count 4.48 4.0-5.20 10^6/uL Hemoglobin 13.5 12.2-16.2 g/dL Hematocrit 40.0 36.0-46.0 % Mean Corpuscular Volume 89.4 80.0-100.0 fL Mean Corpuscular Hemoglobin 30.0 28.0-32.0 pg Mean Corpuscular Hemoglobin Concent 33.6 32.0-36.0 g/dL Red Cell Distribution Width 13.8 11.8-14.3 % Platelet Count 233 140-450 10^3/uL Mean Platelet Volume 8.9 6.9-10.8 fL Neutrophils (%) (Auto) 84.2 H 37.0-80.0 % Lymphocytes (%) (Auto) 10.4 10.0-50.0 % Monocytes (%) (Auto) 4.5 0.0-12.0 % Eosinophils (%) (Auto) 0.6 0.0-7.0 % Basophils (%) (Auto) 0.3 0.0-2.0 % Neutrophils # (Auto) 5.9 1.6-8.6 10 ^3/uL Lymphocytes # (Auto) 0.7 0.4-5.4 10 ^3/uL Monocytes # (Auto) 0.3 0-1.3 10 ^3/uL Eosinophils # (Auto) 0 0-0.8 10 ^3/uL Basophils # (Auto) 0 0-0.2 10 ^3/uL Nucleated Red Blood Cells 0.0 % Sodium Level 139 136-145 mmol/L Potassium Level 4.3 3.5-5.1 mmol/L Chloride Level 105 98-107 mmol/L Carbon Dioxide Level 26 20-31 mmol/L Anion Gap 8 5-15 Blood Urea Nitrogen 21 9-23 mg/dL Creatinine 1.41 H 0.550-1.02 mg/dL Glomerular Filtration Rate Calc 44 >90 mL/min BUN/Creatinine Ratio 14.9 10.0-20.0 Serum Glucose 369 H 74-106 mg/dL Calcium Level 9.7 8.7-10.4 mg/dL Current Medications Medications (Trade) Dose Ordered Sig/Gordon Route Start Time Stop Time Status Last Admin Sodium Chloride 1,000 ml @ 1,000 mls/hr Q1H ONCE IV 12/04/24 19:00 12/04/24 19:59 DC 12/04/24 20:11 Ondansetron HCl (Zofran) 4 mg ONCE ONCE IV 12/04/24 19:00 12/04/24 19:01 DC 12/04/24 20:24 Morphine Sulfate 4 mg ONCE ONCE IV 12/04/24 19:00 12/04/24 19:01 DC 12/04/24 20:10 Pantoprazole Sodium (Protonix) 40 mg ONCE ONCE IV 12/04/24 19:00 12/04/24 19:01 DC 12/04/24 20:09 Haloperidol Lactate (Haldol) 10 mg ONCE ONCE IM 12/04/24 22:00 12/04/24 22:01 DC 12/04/24 22:19 Ceftriaxone Sodium 50 ml @ 100 mls/hr ONCE ONCE IV 12/05/24 02:15 12/05/24 02:44 12/05/24 02:25 Time of 1ST Reevaluation: 19:16 Reevaluation 1ST: Unchanged Patient Education/Counseling: Diagnosis, Treatment, Prognosis Family Education/Counseling: No Family Present Additional Information The following tests were ordered, and results were reviewed by me:BMP, CBC, UA Additional Information was gathered from interviewing the following independent historians: EMS I discussed treatment and results with medical personnel and: patient Comprehensive systems review obtained and negative except for what is stated in the HPI. Departure 1 Departure Time of Disposition: 02:41 (Patient presenting with seizures patient was observed and evaluated for several hours determined to be seated seizures. Patient does have a urinary tract infection. We will discharge patient home with outpatient antibiotics.) Impression: Primary Impression: Acute cystitis Qualified Codes: N30.01 - Acute cystitis with hematuria Additional Impression: Psychogenic nonepileptic seizure Disposition: HOME / SELF CARE / HOMELESS Condition: Stable Additional Instructions: You have a urinary tract infection. You were prescribed antibiotics. Please take as directed. You can take Tylenol Motrin as needed for pain. It is important that he follow up with the regular doctor within 1 week to ensure you are doing better. If your symptoms worsen or you have any other concerns then please return to the emergency room. e-Prescriptions Cefdinir (Cefdinir) 300 Mg Cap 1 CAP PO BID for 7 Days, #14 CAP Prov: AMOS PEREZ MD 12/05/24 Discharged With: Self Critical Care Note Critical Care Time?: Yes Critical care comment: Seizures Authorized and Performed by: Amos Perez MD Total critical care time: Approximately 33 minutes Due to a high probability of clinically significant, life threatening deteriorat ion, the patient required my highest level of preparedness to intervene emergently and I personally spent this critical care time directly and personally managing the patient. This critical care time included obtaining a history; examining the patient; pulse oximetry; ordering and review of studies; arranging urgent treatment with development of a management plan; evaluation of patient's response to treatment; frequent reassessment; and, discussions with other providers. This critical care time was performed to assess and manage the high probability of imminent, life-threatening deterioration that could result in multi-organ failure. It was exclusive of separately billable procedures and treating other patients and teaching time. Please see my other sections and the rest of the note for further information on patient assessment and treatment. Stability Stability form required: No I personally scribed for AMOS PEREZ MD ([email or web address]) on 12/04/24 at 19:17. Electronically submitted by Hanny Aparicio ([email or web address]). I personally scribed for AMOS PEREZ MD ([email or web address]) on 12/04/24 at 20:36. Electronically submitted by Hanny Aparicio ([email or web address]). I personally scribed for AMOS PEREZ MD ([email or web address]) on 12/04/24 at 20:40. Electronically submitted by Hanny Aparicio ([email or web address]). AMOS PEREZ MD Dec 04, 2024 19:17
[2024-12-04 19:46] LABS: Basophils # (auto) 0 10 ^3/uL (0-0.2); Basophils % (auto) 0.3 % (0.0-2.0); Eosinophils # (auto) 0 10 ^3/uL (0-0.8); Eosinophils % (auto) 0.6 % (0.0-7.0); Hemoglobin 13.5 g/dL (12.2-16.2); Lymphocytes # (auto) 0.7 10 ^3/uL (0.4-5.4); Lymphocytes % (auto) 10.4 % (10.0-50.0); Mean Corpuscular Hgb Conc. 33.6 g/dL (32.0-36.0); Mean Corpuscular Volume 89.4 fL (80.0-100.0); Monocytes # (auto) 0.3 10 ^3/uL (0-1.3); Monocytes % (auto) 4.5 % (0.0-12.0); Neutrophils # (auto) 5.9 10 ^3/uL (1.6-8.6); Neutrophils % (auto) 84.2 % (37.0-80.0); Platelet Count (auto) 233 10^3/uL (140-450); Red Blood Cells 4.48 10^6/uL (4.0-5.20); Red Cell Distribution Width 13.8 % (11.8-14.3)
[2024-12-04 19:52] VITALS: TEMP 98.2
[2024-12-04 19:52] LABS: Chloride 105 mmol/L (98-107); Potassium 4.3 mmol/L (3.5-5.1); Sodium 139 mmol/L (136-145)
[2024-12-04 19:53] LABS: Anion Gap 8 (5-15); Carbon Dioxide 26 mmol/L (20-31)
[2024-12-04 19:54] LABS: Calcium 9.7 mg/dL (8.7-10.4)
[2024-12-04 19:58] LABS: BUN/Creatinine Ratio 14.9 (10.0-20.0); Blood Urea Nitrogen 21 mg/dL (9-23)
[2024-12-04 20:00] VITALS: PULSE 92; O2SAT 90
[2024-12-04 20:00] LABS: Glucose 369 mg/dL (74-106)
[2024-12-04] MEDS: PANTOPRAZOLE 40 MG/10 ML VIAL INJ IV ONE (20:09)
[2024-12-04] MEDS: MORPHINE SULFATE 4 MG/ML SYR/VIAL IV ONE (20:10)
[2024-12-04] MEDS: SODIUM CHLORIDE 0.9% 1,000 ML IV ONE (20:11)
[2024-12-04] MEDS: ONDANSETRON HCL 4 MG/2 ML VIAL IV ONE (20:24)
[2024-12-04] MEDS: METOCLOPRAMIDE HCL 5MG/ml INJ 2ml VIAL IV ONE (22:18)
[2024-12-04] MEDS: HALOPERIDOL LACTATE 5 MG/ML INJ VIAL IM ONE (22:19)
[2024-12-04 22:57] LABS: Urine Bacteria None Seen /hpf (None Seen)
[2024-12-04 23:14] LABS: Urine Blood TRACE /uL (Negative); Urine Clarity Turbid (Clear); Urine Color Light-Yellow (Yellow); Urine Hyaline Cast FEW /lpf (0 - 2); Urine Protein, UAD 3+ (Negative); Urine Specific Gravity 1.015 (1.001-1.035); Urine Squamous Epithelial Cell FEW /hpf (<5); Urine Urobilinogen Normal (Negative); Urine WBC 97 /HPF (0-5); Urine WBC Clumps PRESENT /hpf (None Seen)
[2024-12-05 02:25] VITALS: BP 132/64; PULSE 94; RESP 16; O2SAT 92
[2024-12-05] MEDS: cefTRIAXone 1GM/50ML D5W 50 ML IV ONE (02:25)
[2024-12-05] MEDS ORDERED: CEFD300C2 PO (02:42)
[2024-12-05] MEDS: LORazepam 0.5 MG TAB PO ONE (03:31)
== END 2024-12-05 03:31 | disposition home or self-care (01) ==
LOC: EDBD 18:28 → MERGE 18:31 → ER 18:31
DX: N30.01 Acute cystitis with hematuria (principal); F44.5 Conversion disorder with seizures or convulsions; Z88.8 Allergy status to other drugs, medicaments and biological substances
CPT/HCPCS: 36415; 80048; 81001; 82947; 85025; 96365; 96372; 96375; 99291; J0696; J1630; J2270; J2405; J2470; J7030

== ENCOUNTER 2024-12-06 10:31 | Emergency (ER) | payer OTHER, BC ==
[~2024-12-06] VITALS: Ht 160 cm; Wt 100.0 kg
[~2024-12-06 10:31] MED LIST changes: +CEFD300C2 PO; -HYDROmorphone HCL 2 MG/ML VL IM ONE; -IBUPROFEN 800 MG TAB PO ONE; -PROMETHAZINE W/CODEINE 5 ML ORAL SYRUP PO ONE; -levoFLOXacin 500 MG TAB PO ONE
--- NOTE | 2024-12-06 10:47 | ED.PDOC ---
HPI (NEURO) HPI Comments 54-year-old female brought in by ambulance for evaluation of seizure activity. Per EMS, patient rode her wheelchair to her neighbors house and asked them to call EMS. Patient did not have tonic-clonic like activity, but instead had one arm twitching that lasted roughly 10 minutes. 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 Unknown why patient is in a wheelchair. Patient is also complaining of abdominal discomfort. Patient was given 10mg Versed IM by EMS. PMHx: Seizures PSHx: None Reported Allergies: Penicillin, Reglan, Vicodin. Wright: ROYCE clemente HPI: Poor Historian. No history of fall or trauma or injury. Seizure was witnessed while patient was in her motorized wheelchair. Past Medical History: Past Surgical History: REVIEW OF SYSTEMS: Limited since the patient received 10 mg of Versed IM prior to arrival by EMS. CONSTITUTIONAL: Denies acute: fever, diaphoresis, chills, HEAD: Denies acute: headache, photophobia Eyes: Denies acute: Double vision, vision loss, eye pain, eye discharge. EARS: Denies acute: tinnitus, hearing loss, ear discharge, ear pain, THROAT: Denies acute: sore throat, swelling, difficulty swallowing , pain with swallowing, change in voice. NECK: Denies acute: neck pain, neck swelling, stiff neck. HEART: Denies acute : chest pain, palpitations, LUNGS: Denies acute: SOB, wheezing, cough, hemoptysis ABDOMEN: Denies acute: abdominal pain, Nausea, Vomiting, diarrhea, melena , hematemesis, hematochezia SKIN: Denies acute: rash, redness, lesions, itchiness. EXTREMITIES: Denies acute: calf pain, numbness, tingling, weakness, denies pain in extremity. Denies acute: Low back pain. Neuro: Denies acute: focal neurological deficit, motor or sensory focal neurological deficit, loss of bowel or bladder function, cauda equina like symptoms. : Denies acute: dysuria, hematuria, flank pain, increase in urinary frequency. PSYCH: Denies acute: hallucination, suicidal ideation, homicidal ideation. FEMALE: Denies acute: abnormal vaginal bleeding, foul odor, unusual discharge. PHYSICAL EXAM: General: ---no--acute distress, awake and alert. Head: normocephalic, atraumatic. Neck: supple, trachea is midline, no swelling. Throat: Normal phonation. Eyes:, no erythema, no purulent discharge, no proptosis, no icterus. Heart: regular rate, regular rhythm, no significant murmur appreciated. Lungs: no apparent respiratory distress, No wheezing, no rhonchi, no crackles. No stridors Clear to auscultation bilaterally. Abdomen: non tender to palpation, non distended, soft, no guarding, no rebound, + bowel sounds. Obese Neuro: Awake, Alert, oriented to name, , sedated but follows commands When asked what is her name she was able to answer appropriately. Skin: no petechia, no purpura, no cyanosis, non-pale, not jaundice. Lower extremities: --no - Pitting edema no deformity, no focal swelling, no calf TTP. Makes eye contact. Pupils are reactive to light bilaterally. Face: no apparent facial droop. No nuchal rigidity, Kernig's sign, Brudzinski's sign, no meningeal signs. ED COURSE: 11:26AM - Patient was seen here on December 04, 2024 with chief complaint of seizures, abdominal pain, N/V and was diagnosed with Acute Cystitis and was discharged with antibiotics. 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 Was a procedure done?: No Differential Diagnosis (SZ) Seizure: Other (SEIZUREDDX include not limited to CVA, cerebellar ischemia/infarct, carotid stenosis, vertebral/carotid artery dissection,, verteb robasillary insufficiency, Intracranial mass/infection/bleed, encephalopathy, elctrolyte abnormality, thyroid disease, multiple sclerosis, hypoglycemia, drug toxicity, cardiac arrhythmia, sub-theraputic anti-convulsion medications, known seizure disorder, pseudo-seizure.) X-Ray, Labs, Meds, VS Vital Signs Date Time Temp Pulse Resp B/P (MAP) Pulse Ox O2 Delivery O2 Flow Rate FiO2 12/06/24 15:47 98.1 93 19 164/76 (105) 94 98.1 12/06/24 13:45 97.9 95 15 163/84 (110) 99 97.9 12/06/24 12:18 98.1 94 19 169/89 (115) 99 98.1 12/06/24 12:12 94 19 99 Nasal Cannula* 2 28 12/06/24 10:38 98.8 101 20 113/64 (80) 94 98.8 12/06/24 10:32 101 Lab Test 12/06/24 14:25 12/06/24 12:10 12/06/24 11:39 12/06/24 11:07 Range/Units Troponin I High Sensitivity 19 23 25 </=34 ng/L Urine Color Light-yellow Yellow Urine Clarity Clear Clear Urine pH 6.5 5.0-9.0 Urine Specific [place] 1.017 1.001-1.035 Urine Protein 3+ H Negative Urine Ketones Negative Negative Urine Blood Trace H Negative /uL Urine Nitrite Negative Negative Urine Bilirubin Negative Negative Urine Urobilinogen Normal Negative mg/dL Urine Leukocyte Esterase Negative Negative /uL Urine RBC 3 0 - 4 /hpf Urine Microscopic WBC 3 0-5 /HPF Urine Squamous Epithelial Cells Few <5 /hpf Urine Bacteria Few H None Seen /hpf Urine Glucose 4+ H Normal mg/dL White Blood Count 8.4 4.4-10.8 10^3/uL Red Blood Count 4.66 4.0-5.20 10^6/uL Hemoglobin 14.2 12.2-16.2 g/dL Hematocrit 41.9 36.0-46.0 % Mean Corpuscular Volume 89.9 80.0-100.0 fL Mean Corpuscular Hemoglobin 30.5 28.0-32.0 pg Mean Corpuscular Hemoglobin Concent 33.9 32.0-36.0 g/dL Red Cell Distribution Width 14.0 11.8-14.3 % Platelet Count 234 140-450 10^3/uL Mean Platelet Volume 9.2 6.9-10.8 fL Neutrophils (%) (Auto) 85.0 H 37.0-80.0 % Lymphocytes (%) (Auto) 9.7 L 10.0-50.0 % Monocytes (%) (Auto) 4.2 0.0-12.0 % Eosinophils (%) (Auto) 0.8 0.0-7.0 % Basophils (%) (Auto) 0.3 0.0-2.0 % Neutrophils # (Auto) 7.1 1.6-8.6 10 ^3/uL Lymphocytes # (Auto) 0.8 0.4-5.4 10 ^3/uL Monocytes # (Auto) 0.4 0-1.3 10 ^3/uL Eosinophils # (Auto) 0.1 0-0.8 10 ^3/uL Basophils # (Auto) 0 0-0.2 10 ^3/uL Nucleated Red Blood Cells 0.0 % Sodium Level 137 136-145 mmol/L Potassium Level 4.3 3.5-5.1 mmol/L Chloride Level 101 98-107 mmol/L Carbon Dioxide Level 25 20-31 mmol/L Anion Gap 11 5-15 Blood Urea Nitrogen 24 H 9-23 mg/dL Creatinine 1.27 H 0.550-1.02 mg/dL Glomerular Filtration Rate Calc 50 >90 mL/min BUN/Creatinine Ratio 18.9 10.0-20.0 Serum Glucose 391 H 74-106 mg/dL Lactic Acid Level 1.9 0.4-2.0 mmol/L Calcium Level 9.9 8.7-10.4 mg/dL Magnesium Level 1.9 1.6-2.6 mg/dL Total Bilirubin 0.3 0.2-1.0 mg/dL Aspartate Amino Transferase (AST) 12 L 13-40 U/L Alanine Aminotransferase (ALT) 20 7-40 U/L Alkaline Phosphatase 144 H 46-116 U/L Creatine Kinase 73 34-145 U/L Total Protein 7.5 5.7-8.2 g/dL Albumin 4.3 3.2-4.8 g/dL Levetiracetam Level Pending PATIENT: CHEO WRIGHTCCT: [id number]: [id number] : 1970 LOC: ER ROOM / BED: / AGE / SEX: 54 / F ADM STATUS: REG ER SERVICE 1039 ORDERING PHYSICIAN: ALEKS HADLEY DO PROCEDURE(s): CXRP - CHEST PORTABLE REASON: seizure ORDER NUMBER(s): [id number], ACCESSION NUMBER(s): [id number] CHEST RADIOGRAPH Indication: seizure Technique: Single frontal view of the chest was obtained COMPARISON: None FINDINGS: Lines and Tubes: None Lungs: Congestion Pleura: No effusion. No pneumothorax. Cardiomediastinal contours: Cardiomegaly Bones: Unremarkable IMPRESSION: Mild pulmonary vascular congestion ATED BY: ALIREZA CAGLE MD DICTATED DATE/TIME: 12/06/246 SIGNED BY: ALIREZA CAGLE MD SIGNED DATE/TIME: 12/06/241225 PATIENT: LEATHA WRIGHT ACCT: [id number] UNIT: [id number] : 1970 LOC: ER ROOM / BED: / AGE / SEX: 54 / F ADM STATUS: REG ER SERVICE 1122 ORDERING PHYSICIAN: ALEKS HADLEY DO PROCEDURE(s): CS2 - CERVICAL WITHOUT CONTRAST REASON: seizure ORDER NUMBER(s): [id number], ACCESSION NUMBER(s): [id number] EXAM: CT CERVICAL WITHOUT CONTRAST HISTORY: seizure COMPARISON: None CTDIvol 28.49 mGy, DLP 611.84 mGy*cm. TECHNIQUE: Multiple axial CT images of the spine were obtained using bone algorithm. Axial and coronal reformatting was done. Bone and soft tissue windows were reviewed. FINDINGS: No evidence of definite acute fracture, spinal dislocation, or significant appearing acute subluxation is seen. Multilevel degenerative changes of the spine. IMPRESSION: No definite CT evidence of acute fracture or dislocation of the bony cervical spine. ATED BY: ALIREZA CAGLE MD DICTATED DATE/TIME: 12/06/248 SIGNED BY: ALIREZA CAGLE MD SIGNED DATE/TIME: 12/06/241217 PATIENT: LEATHA WRIGHT ACCT: [id number] UNIT: [id number] : 1970 LOC: ER ROOM / BED: / AGE / SEX: 54 / F ADM STATUS: REG ER SERVICE 1122 ORDERING PHYSICIAN: ALEKS HADLEY DO PROCEDURE(s): HWOCT - HEAD WITHOUT CONTRAST REASON: seizure ORDER NUMBER(s): [id number], ACCESSION NUMBER(s): [id number] EXAM: CT HEAD WITHOUT CONTRAST INDICATION: seizure TECHNIQUE: CT of the head without intravenous contrast. Radiation Dose : 1. Head: CT Dose: CTDI volume is 58.09 mGy. Dose-length product is 1028.58 mGy*cm The dose indicators for CT are the volume Computed Tomography (CT) Dose Index (CTDIvol) and the Dose Length Product (DLP), and are measured in units of mGy and mGy-cm, respectively. These indicators are not patient dose, but values generated from the CT scanner acquisition factors. The report includes radiation exposure data for exposures received during this examination. COMPARISON: None FINDINGS: There is no evidence of acute intracranial hemorrhage, extra-axial collection, m ass effect, midline shift, herniation or hydrocephalus. The ventricles, sulci and cisterns are age appropriate. The jarvis-white differentiation is intact. Patchy periventricular and subcortical white matter hypoattenuation is nonspecific but may be related to small vessel ischemic disease. Moderate mucosal opacification of the left maxillary sinus. The surrounding soft tissues and osseous structures are unremarkable. IMPRESSION: No acute intracranial abnormality. Radiation optimization: All CT scans at this facility use at least one of these dose optimization techniques: automated exposure control mA and/or kV adjustmen t per patient size (includes targeted exams where dose is matched to clinical indication) or iterative reconstruction. ATED BY: ALIREZA CAGLE MD DICTATED DATE/TIME: 12/06/241215 SIGNED BY: ALIREZA CAGLE MD SIGNED DATE/TIME: 12/06/241215 PATIENT: LEATHA WRIGHT ACCT: [id number] UNIT: [id number] : 1970 LOC: ER ROOM / BED: / AGE / SEX: 54 / F ADM STATUS: REG ER SERVICE 1125 ORDERING PHYSICIAN: ALEKS HADLEY DO PROCEDURE(s): ABPL - CT AB PEL WO CON-NO ORAL OR IV REASON: abd pain ORDER NUMBER(s): [id number], ACCESSION NUMBER(s): [id number] CT CT AB PEL WO CON-NO ORAL OR IV INDICATION: abd pain : 54 old Female abd pain EXAM DATE: 12/06/2024 11:54 AM COMPARISON: None RADIATION DOSE: CTDIvol: 24.2 mGy, DLP: 1355.38 mGy*cm PROCEDURE: Helical CT images were obtained of the abdomen and pelvis without IV contrast Sagittal and coronal reconstructions are provided. ORAL CONTRAST: None. ADDITIONAL IMAGES / REFORMATS: None All CT scans at this medical facility are performed using dose modulation techniques as appropriate to a performed exam including the following: Automated exposure control was utilized; adjustment of the MA and/or KV according to patient size; and use of iterative reconstruction technique. FINDINGS: LUNG BASE: Bibasilar atelectasis. LIVER: Low in attenuation. 23 cm. GALLBLADDER AND BILIARY TREE: No calcified gallstones. Normal caliber wall. No intra- or extrahepatic biliary ductal dilation. PANCREAS: Normal. SPLEEN: Normal. BOWEL: Rectal anastomotic sutures are seen. Normal appendix. ADRENALS: Normal. KIDNEYS AND URETER: Possible nonobstructive right ureteral kidney stone vs phlebolith. BLADDER: Cantu in the bladder. REPRODUCTIVE ORGANS: Normal. LYMPH NODES:No lymphadenopathy. PERITONEUM: No ascites or free air. No other fluid collection. VESSELS: Scattered atherosclerotic calcifications are noted. RETROPERITONEUM: Normal. ABDOMINAL WALL: Normal. BONES: Scattered osseous degenerative changes are noted. IMPRESSION: Possible nonobstructive right ureteral kidney stone vs phlebolith. Hepatomegaly and hepatic steatosis. ATED BY: HERNAN MARR MD DICTATED DATE/TIME: 12/06/24 1240 SIGNED BY: HERNAN MARR MD SIGNED DATE/TIME: 12/06/24 1240 Time of 1ST Reevaluation: 11:23 (Patient was found in the bathroom floor actively seizing by staff. Patient had this seizure prior to receiveing any medications that were ordered. 2mg of Ativan was ordered. ) Reevaluation 1ST: Unchanged Time of 2ND Reevaluation: 14:40 (The case was discussed with the [facility] team (HPI, physical exam, labs and diagnostic tests that were available at the time of disposition, ED course, treatment plan) on the phone. They transfer the patient to their service by ALS for further evaluation and treatment. Dr. goldberg. Authorization number is--[id number]) Reevaluation 2ND: Improved Time of 3RD Reevaluation: 00:00 Patient Education/Counseling: Diagnosis, Treatment Family Education/Counseling: No Family Present Comments Patient presented with the above HPI.----seizure/ALOC--workup was initiated. ramiro gonzalez was found with the above mentioned diagnosis. the following medications were ordered: please refer to order lists of meds and tests obtained by myself Dr. Hadley. Patient ED course and VS have been stabilized. Patient has been reassessed in th e ED and remained in a stable condition. Patient has been observed in the ED adequate length of time to insure improvement/stability. Escalation of care considered: Consideration of escalation to observation or admission Patient was transferred to [facility] per insurance requirement to the medicine team for further evaluation and treatment of their presentation. All the reports of any imaging studies that were ordered by myself were reviewed by myself. Departure 1 Departure Time of Disposition: 11:40 Impression: Primary Impression: Witnessed seizure-like activity Disposition: 02 SHORT TERM HOSPITAL Admit to: Tele Condition: Guarded Discharged With: Self Critical Care Note Critical Care Time?: Yes (1 hr-critical care time only) I personally scribed for ALEKS HADLEY DO ([email or web address]) on 12/06/24 at 10:47. Electronically submitted by Alex Wright ([email or web address]). I personally scribed for ALEKS HADLEY DO ([email or web address]) on 12/06/24 at 11:24. Electronically submitted by Alex Wright ([email or web address]). I personally scribed for ALEKS HADLEY DO ([email or web address]) on 12/06/24 at 11:28. Electronically submitted by Alex Wright ([email or web address]). I personally scribed for ALEKS HADLEY DO ([email or web address]) on 12/06/24 at 12:50. Electronically submitted by Alex Wright ([email or web address]). I personally scribed for ALEKS HADLEY DO ([email or web address]) on 12/06/24 at 12:51. Electronically submitted by Alex Wright ([email or web address]). ALEKS HADLEY DO December 06, 2024 10:47
[2024-12-06] MEDS: LORazepam 2MG/ML-1ML VIAL ONE (11:21)
[2024-12-06 11:23] LABS: Basophils # (auto) 0 10 ^3/uL (0-0.2); Basophils % (auto) 0.3 % (0.0-2.0); Eosinophils # (auto) 0.1 10 ^3/uL (0-0.8); Eosinophils % (auto) 0.8 % (0.0-7.0); Hematocrit 41.9 % (36.0-46.0); Hemoglobin 14.2 g/dL (12.2-16.2); Lymphocytes # (auto) 0.8 10 ^3/uL (0.4-5.4); Lymphocytes % (auto) 9.7 % (10.0-50.0); Mean Corpuscular Hemoglobin 30.5 pg (28.0-32.0); Mean Corpuscular Hgb Conc. 33.9 g/dL (32.0-36.0); Mean Corpuscular Volume 89.9 fL (80.0-100.0); Monocytes # (auto) 0.4 10 ^3/uL (0-1.3); Monocytes % (auto) 4.2 % (0.0-12.0); Neutrophils # (auto) 7.1 10 ^3/uL (1.6-8.6); Platelet Count (auto) 234 10^3/uL (140-450); Red Blood Cells 4.66 10^6/uL (4.0-5.20); White Blood Cell 8.4 10^3/uL (4.4-10.8)
[2024-12-06] MEDS: levETIRAcetam 1000 mg/100ml 100 ML IV ONE (11:38)
[2024-12-06 11:41] LABS: Alanine Aminotransferase 20 U/L (7-40); Albumin 4.3 g/dL (3.2-4.8); Anion Gap 11 (5-15); BUN/Creatinine Ratio 18.9 (10.0-20.0); Calcium 9.9 mg/dL (8.7-10.4); Carbon Dioxide 25 mmol/L (20-31); Chloride 101 mmol/L (98-107); Magnesium 1.9 mg/dL (1.6-2.6); Potassium 4.3 mmol/L (3.5-5.1); Sodium 137 mmol/L (136-145); Total Protein 7.5 g/dL (5.7-8.2)
[2024-12-06 11:42] LABS: Alkaline Phosphatase 144 U/L (46-116); Aspartate Aminotransferase 12 U/L (13-40); Bilirubin, Total 0.3 mg/dL (0.2-1.0); Blood Urea Nitrogen 24 mg/dL (9-23); Glucose 391 mg/dL (74-106)
[2024-12-06 11:55] LABS: Urine Bacteria FEW /hpf (None Seen); Urine Blood TRACE /uL (Negative); Urine Clarity Clear (Clear); Urine Color Light-Yellow (Yellow); Urine Protein, UAD 3+ (Negative); Urine Specific Gravity 1.017 (1.001-1.035); Urine Squamous Epithelial Cell FEW /hpf (<5); Urine Urobilinogen Normal (Negative); Urine WBC 3 /HPF (0-5); Urine pH 6.5 (5.0-9.0)
[2024-12-06 12:00] LABS: Creatine Kinase IFCC 73 U/L (34-145)
[2024-12-06] MEDS: LORazepam 2MG/ML-1ML VIAL IM ONE (12:10)
[2024-12-06 12:12] VITALS: PULSE 94; RESP 19; O2SAT 99
--- NOTE | 2024-12-06 12:19 | DVH ---
EXAM: CT HEAD WITHOUT CONTRAST INDICATION: seizure TECHNIQUE: CT of the head without intravenous contrast. Radiation Dose : 1. Head: CT Dose: CTDI volume is 58.09 mGy. Dose-length product is 1028.58 mGy*cm The dose indicators for CT are the volume Computed Tomography (CT) Dose Index (CTDIvol) and the Dose Length Product (DLP), and are measured in units of mGy and mGy-cm, respectively. These indicators are not patient dose, but values generated from the CT scanner acquisition factors. The report includes radiation exposure data for exposures received during this examination. COMPARISON: None FINDINGS: There is no evidence of acute intracranial hemorrhage, extra-axial collection, mass effect, midline s hift, herniation or hydrocephalus. The ventricles, sulci and cisterns are age appropriate. The jarvis-white differentiation is intact. Patchy periventricular and subcortical white matter hypoattenuation is nonspecific but may be related to small vessel ischemic disease. Moderate mucosal opacification of the left maxillary sinus. The surrounding soft tissues and osseous structures are unremarkable. IMPRESSION: No acute intracranial abnormality. Radiation optimization: All CT scans at this facility use at least one of these dose optimization osmin hniques: automated exposure control mA and/or kV adjustment per patient size (includes targeted exam s where dose is matched to clinical indication) or iterative reconstruction.
--- NOTE | 2024-12-06 12:20 | DVH ---
EXAM: CT CERVICAL WITHOUT CONTRAST HISTORY: seizure COMPARISON: None CTDIvol 28.49 mGy, DLP 611.84 mGy*cm. TECHNIQUE: Multiple axial CT images of the spine were obtained using bone algorithm. Axial and abbasi l reformatting was done. Bone and soft tissue windows were reviewed. FINDINGS: No evidence of definite acute fracture, spinal dislocation, or significant appearing acute subluxatio n is seen. Multilevel degenerative changes of the spine. IMPRESSION: No definite CT evidence of acute fracture or dislocation of the bony cervical spine.
--- NOTE | 2024-12-06 12:29 | DVH ---
CHEST RADIOGRAPH Indication: seizure Technique: Single frontal view of the chest was obtained COMPARISON: None FINDINGS: Lines and Tubes: None Lungs: Congestion Pleura: No effusion. No pneumothorax. Cardiomediastinal contours: Cardiomegaly Bones: Unremarkable IMPRESSION: Mild pulmonary vascular congestion
--- NOTE | 2024-12-06 12:43 | DVH ---
CT CT AB PEL WO CON-NO ORAL OR IV INDICATION: abd pain : 54 old Female abd pain EXAM DATE: 12/06/2024 11:54 AM COMPARISON: None RADIATION DOSE: CTDIvol: 24.2 mGy, DLP: 1355.38 mGy*cm PROCEDURE: Helical CT images were obtained of the abdomen and pelvis without IV contrast Sagittal and coronal reconstructions are provided. ORAL CONTRAST: None. ADDITIONAL IMAGES / REFORMATS: None All C T scans at this medical facility are performed using dose modulation techniques as appropriate to a p erformed exam including the following: Automated exposure control was utilized; adjustment of the MA and/or KV according to patient size; and use of iterative reconstruction technique. FINDINGS: LUNG BASE: Bibasilar atelectasis. LIVER: Low in attenuation. 23 cm. GALLBLADDER AND BILIARY TREE: No calcified gallstones. Normal caliber wall. No intra- or extrahepatic biliary ductal dilation. PANCREAS: Normal. SPLEEN: Normal. BOWEL: Rectal anastomotic sutures are seen. Normal appendix. ADRENALS: Normal. KIDNEYS AND URETER: Possible nonobstructive right ureteral kidney stone vs phlebolith. BLADDER: Cantu in the bladder. REPRODUCTIVE ORGANS: Normal. LYMPH NODES:No lymphadenopathy. PERITONEUM: No ascites or free air. No other fluid collection. VESSELS: Scattered atherosclerotic calcifications are noted. RETROPERITONEUM: Normal. ABDOMINAL WALL: Normal. BONES: Scattered osseous degenerative changes are noted. IMPRESSION: Possible nonobstructive right ureteral kidney stone vs phlebolith. Hepatomegaly and hepatic steatosis.
[2024-12-06] MEDS: ONDANSETRON HCL 4 MG/2 ML VIAL ONE (14:37)
[2024-12-06] MEDS: ONDANSETRON HCL 4 MG/2 ML VIAL IV ONE (14:56)
[2024-12-06 15:47] VITALS: BP 164/76; PULSE 93; RESP 19; TEMP 98.1; O2SAT 94
--- NOTE | 2024-12-09 12:59 | ECG ---
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
== END 2024-12-06 17:41 | disposition short-term general hospital (02) ==
LOC: MERGE 10:31 → EDBD 10:31 → ER 10:31
DX: R56.9 Unspecified convulsions (principal); Z88.0 Allergy status to penicillin; Z88.6 Allergy status to analgesic agent
CPT/HCPCS: 36415; 70450; 71045; 72125; 74176; 80053; 81001; 82542; 82550; 82947; 83605; 83735; 84484; 85025; 93005; 96365; 96372; 96375; 99285; J1953; J2060; J2405

== ENCOUNTER 2024-12-14 15:29 | Emergency (ER) | payer BC, OTHER ==
[~2024-12-14] VITALS: Ht 170.2 cm; Wt 128.0 kg
[2024-12-14 16:00] VITALS: PULSE 99; RESP 14; O2SAT 99
--- NOTE | 2024-12-14 16:06 | ED.PDOC ---
History of Present Illness HPI Comments This patient is a morbidly obese 54-year-old female who arrives to the ED today via EMS due to seizure and chest pain concerns. Patient was at home and notified her caregiver that she had chest pain. Subsequent to notification, patient started displays signs of seizure. Patient has a history of pseudo sei zures. Patient arrives in his pseudo seizure state. Vital signs were stable. Chief Complaint: Seizure Time Seen by MD: 15:55 Primary Care Provider: UNKNOWN Reviewed Notes: Nurses Notes, Medications, Allergies Allergies: Coded Allergies: Acetaminophen (Verified Allergy, Unknown, 10/20/19) Hydrocodone (Verified Allergy, Unknown, 10/20/19) Metformin (Verified Allergy, Unknown, 10/20/19) Metoclopramide (Verified Allergy, Unknown, 10/20/19) Penicillins (Verified Allergy, Unknown, 10/20/19) Home Meds Active Scripts Cefdinir (Cefdinir) 300 Mg Cap, 1 CAP PO BID for 7 Days, #14 CAP Prov:AMOS PEREZ MD 12/05/24 Information Source: Patient, Emergency Med Personnel Mode of Arrival: EMS Severity: Moderate Timing: Minutes Duration: Since onset, Minutes Prehospital treatment: None Past Medical History PAST MEDICAL HISTORY: Seizures Past Medical History (Other): Significant history of intractable abdominal pain with intractable nausea and vomiting concerns. Surgical History: Denies all surgeries NECK CUTTER History: No Pertinent NECK CUTTER History Family History Family History: Reviewed,noncontributory to illness, Unknown Social History Smoker: Non-Smoker Alcohol: Denies ETOH Use Drugs: Denies Drug Use Lives In: Home Constitutional: denies: chills, diaphoresis, fatigue, fever, malaise, sweats, weakness, others EENTM: denies: blurred vision, double vision, ear bleeding, ear discharge, ear drainage, ear pain, ear ringing, eye pain, eye redness, hearing loss, mouth pain, mouth swelling, nasal discharge, nose bleeding, nose congestion, nose pain, photophobia, tearing, throat pain, throat swelling, voice changes, others Respiratory: denies: cough, hemoptysis, orthopnea, SOB at rest, shortness of breath, SOB with excertion, stridor, wheezing, others Cardiovascular: reports: chest pain; denies: dizzy spells, diaphoresis, Dyspnea on exertion, edema, irregular heart beat, left arm pain, lightheadedness, palpitations, PND, syncope, others Gastrointestinal: reports: abdominal pain, nausea, vomiting; denies: abdomen distended, blood streaked bowels, constipated, diarrhea, dysphagia, difficulty swallowing, hematemesis, melena, poor appetite, poor fluid intake, rectal bleeding, rectal pain, others Genitourinary: denies: abnormal vagina bleeding, burning, dyspareunia, dysuria, flank pain, frequency, hematuria, incontinence, pain, , vagina discharge, urgency, others Neurological: reports: seizure; denies: dizziness, fainting, headache, left sided numbness, left sided weakness, numbness, paresthesia, pre-existing deficit, right sided numbness, right sided weakness, speech problems, tingling, tremors, weakness, others Musculoskeletal: denies: back pain, gout, joint pain, joint swelling, muscle pain, muscle stiffness, neck pain, others Integumetry: denies: bruises, change in color, change in hair/nails, dryness, laceration, lesions, lumps, rash, wounds, others Allergic/Immunocompromised: denies: Difficulty Healing, Frequent Infections, Hives, Itching, others Hematologic/Lymphatic: denies: anemia, blood clots, easy bleeding, easy bruising, swollen glands, others Endocrine: denies: excessive hunger, excessive sweating, excessive thirst, excessive urination, flushing, intolerance to cold, intolerance to heat, unexplained weight gain, unexplained weight loss, others Psychiatric: denies: anxiety, bipolar disorder, depression, hopeless, panic disorder, schizophrenia, sleepless, suicidal, others All Other Systems: Reviewed and Negative Physical Exam General Appearance: Moderate Distress (Patient complained of abdominal pain with the intractable nausea and vomiting. Patient states she has a chronic GI condition that results in intractable nausea and vomiting. Patient states that requires morphine to address.), Normal HEENT: Normal ENT Inspection, Pharynx Normal, TMs Normal Neck: Full Range of Motion, Non-Tender, Normal, Normal Inspection Respiratory: Chest Non-Tender, Lungs Clear, No Accessory Muscle Use, No Respiratory Distress, Normal Breath Sounds Cardiovascular: No Edema, No JVD, No Murmur, No Gallop, Normal Peripheral Pu lses, Regular Rate/Rhythm Breast Exam: Deferred Gastrointestinal: Other (Diffuse abdominal pain. Difficult to assess due to body habitus. No signs of trauma.) Genitalia: Deferred Pelvic: Deferred Rectal: Deferred Extremities: No calf tenderness, Normal capillary refill, No pedal edema Musculoskeletal : Apperance: Normal Neurologic: Alert Cerebellar Function: NOT DONE Reflexes: NOT DONE Skin: Dry, Normal Color, Warm Lymphatic: No Adenopathy Was a procedure done? Was a procedure done?: No Differential Dx Considerations may include: Sepsis, electrolyte abnormality, UTI, pseudoseizures, intractable abdominal pain, intractable nausea and vomiting X-Ray, Labs, Meds, VS Vital Signs Date Time Temp Pulse Resp B/P (MAP) Pulse Ox O2 Delivery O2 Flow Rate FiO2 12/14/24 20:00 99 12/14/24 19:30 98.6 95 22 166/88 (114) 99 98.6 12/14/24 19:29 Room Air* 0 21 12/14/24 18:26 90 16 157/81 12/14/24 18:00 100 14 175/94 (121) 99 12/14/24 17:54 106 15 175/94 12/14/24 16:43 138/88 12/14/24 16:18 99.1 88 16 180/100 (126) 97 99.1 12/14/24 16:00 99 14 99 Room Air* 0 21 12/14/24 16:00 98.7 99 14 120/56 (77) 99 98.7 Lab Test 12/14/24 20:04 12/14/24 18:06 12/14/24 16:18 Range/Units Troponin I High Sensitivity 21 22 16 </=34 ng/L White Blood Count 9.2 4.4-10.8 10^3/uL Red Blood Count 4.82 4.0-5.20 10^6/uL Hemoglobin 14.5 12.2-16.2 g/dL Hematocrit 43.1 36.0-46.0 % Mean Corpuscular Volume 89.4 80.0-100.0 fL Mean Corpuscular Hemoglobin 30.1 28.0-32.0 pg Mean Corpuscular Hemoglobin Concent 33.7 32.0-36.0 g/dL Red Cell Distribution Width 13.9 11.8-14.3 % Platelet Count 296 140-450 10^3/uL Mean Platelet Volume 9.1 6.9-10.8 fL Neutrophils (%) (Auto) 80.3 H 37.0-80.0 % Lymphocytes (%) (Auto) 12.8 10.0-50.0 % Monocytes (%) (Auto) 5.5 0.0-12.0 % Eosinophils (%) (Auto) 0.8 0.0-7.0 % Basophils (%) (Auto) 0.6 0.0-2.0 % Neutrophils # (Auto) 7.4 1.6-8.6 10 ^3/uL Lymphocytes # (Auto) 1.2 0.4-5.4 10 ^3/uL Monocytes # (Auto) 0.5 0-1.3 10 ^3/uL Eosinophils # (Auto) 0.1 0-0.8 10 ^3/uL Basophils # (Auto) 0.1 0-0.2 10 ^3/uL Nucleated Red Blood Cells 0.1 % Sodium Level 142 136-145 mmol/L Potassium Level 3.5 3.5-5.1 mmol/L Chloride Level 105 98-107 mmol/L Carbon Dioxide Level 26 20-31 mmol/L Anion Gap 11 5-15 Blood Urea Nitrogen 11 9-23 mg/dL Creatinine 1.08 H 0.550-1.02 mg/dL Glomerular Filtration Rate Calc 61 >90 mL/min BUN/Creatinine Ratio 10.2 10.0-20.0 Serum Glucose 197 H 74-106 mg/dL Lactic Acid Level 1.6 0.4-2.0 mmol/L Calcium Level 9.9 8.7-10.4 mg/dL Total Bilirubin 0.4 0.2-1.0 mg/dL Aspartate Amino Transferase (AST) 14 13-40 U/L Alanine Aminotransferase (ALT) 35 7-40 U/L Alkaline Phosphatase 155 H 46-116 U/L B-Type Natriuretic Peptide 32.94 0-100 pg/mL Total Protein 7.4 5.7-8.2 g/dL Albumin 4.5 3.2-4.8 g/dL Lipase 51 12-53 U/L Current Medications Medications (Trade) Dose Ordered Sig/Gordon Route Start Time Stop Time Status Last Admin Levetiracetam 100 ml @ 400 mls/hr ONCE ONCE IV 12/14/24 15:45 12/14/24 15:59 DC 12/14/24 16:31 Dicyclomine HCl (Bentyl Injection) 20 mg ONCE ONCE IM 12/14/24 16:30 12/14/24 16:32 DC 12/14/24 16:41 Metoclopramide HCl (Reglan Injection) 10 mg ONCE ONCE IV 12/14/24 16:30 12/14/24 16:32 DC 12/14/24 16:42 Ondansetron HCl (Zofran) 4 mg ONCE ONCE IV 12/14/24 16:30 12/14/24 16:32 DC 12/14/24 16:42 Diphenhydramine HCl (Benadryl Injection) 25 mg ONCE ONCE IV 12/14/24 17:00 12/14/24 17:01 DC 12/14/24 16:58 Morphine Sulfate 6 mg ONCE ONCE IV 12/14/24 17:30 12/14/24 17:31 DC 12/14/24 17:54 Prochlorperazine Edisylate (Compazine Inj) 10 mg ONCE ONCE IV 12/14/24 20:45 12/14/24 20:46 DC 12/14/24 20:52 Ondansetron HCl (Zofran) 4 mg ONCE ONCE IV 12/14/24 20:45 12/14/24 20:46 DC 12/14/24 20:52 X-Ray, Labs, Meds, VS Comment All studies performed the ED were evaluated by me personally. All studies received at time of this note were unremarkable for any acute concerns. EKG revealed a sinus rhythm with a rate of 97. Probable left atrial enlargement. Abnormal R-wave progression with left ventricular hypertrophy. MT interval of 128 and QT interval of 353. Patient has had intractable nausea and vomiting as well as intractable abdominal pain throughout her stay. Patient will be transferred to [facility] for further management. Spoke with Dr. Bustamante at [facility]. Advised him of patient presentation as well as laboratory and additional study results. He agreed to accept the patient is a transfer. . Time of 1ST Reevaluation: 20:43 Reevaluation 1ST: Improved Consultation: PCP, GI Patient Education/Counseling: Diagnosis, Treatment, Prognosis Family Education/Counseling: Diagnosis, Treatment, No Family Present Departure 1 Departure Time of Disposition: 20:45 Impression: Primary Impression: Intractable nausea and vomiting Additional Impression: Intractable abdominal pain Disposition: 02 SHORT TERM HOSPITAL Condition: Fair Discharged With: Self Critical Care Note Critical Care Time?: No Stability Stability form required: No Heart Score Heart Score: Heart Score Response (Comments) Value History Slightly Suspicious 0 EKG Repolarization Disturb 1 Age 45-64 1 Risk Factors 1 or 2 risk factors 1 Troponin Normal limit 0 Total 3 I personally scribed for RENA HAMM PAC ([email or web address]) on 12/14/24 at 16:06. Elec tronically submitted by Pee Teixeira ([email or web address]). RENA HAMM PAC December 14, 2024 16:06
[2024-12-14] MEDS: levETIRAcetam 1000 mg/100ml 100 ML IV ONE (16:31)
[2024-12-14 16:39] LABS: Basophils # (auto) 0.1 10 ^3/uL (0-0.2); Basophils % (auto) 0.6 % (0.0-2.0); Eosinophils # (auto) 0.1 10 ^3/uL (0-0.8); Eosinophils % (auto) 0.8 % (0.0-7.0); Hematocrit 43.1 % (36.0-46.0); Hemoglobin 14.5 g/dL (12.2-16.2); Lymphocytes # (auto) 1.2 10 ^3/uL (0.4-5.4); Lymphocytes % (auto) 12.8 % (10.0-50.0); Mean Corpuscular Hemoglobin 30.1 pg (28.0-32.0); Mean Corpuscular Hgb Conc. 33.7 g/dL (32.0-36.0); Mean Corpuscular Volume 89.4 fL (80.0-100.0); Monocytes # (auto) 0.5 10 ^3/uL (0-1.3); Monocytes % (auto) 5.5 % (0.0-12.0); Neutrophils # (auto) 7.4 10 ^3/uL (1.6-8.6); Neutrophils % (auto) 80.3 % (37.0-80.0); Nucleated Red Blood Cells % 0.1 %; Platelet Count (auto) 296 10^3/uL (140-450); Red Blood Cells 4.82 10^6/uL (4.0-5.20); Red Cell Distribution Width 13.9 % (11.8-14.3); White Blood Cell 9.2 10^3/uL (4.4-10.8)
[2024-12-14] MEDS: DICYCLOMINE HCL (10MG/ML) 2 ML AMPULE IM ONE (16:41)
[2024-12-14] MEDS: ONDANSETRON HCL 4 MG/2 ML VIAL IV ONE ×2 (16:42→20:52)
[2024-12-14] MEDS: METOCLOPRAMIDE HCL 5MG/ml INJ 2ml VIAL IV ONE (16:42)
[2024-12-14] MEDS: cloNIDine HCL 0.1 MG TAB PO ONE (16:43)
[2024-12-14 16:46] LABS: Alanine Aminotransferase 35 U/L (7-40); Albumin 4.5 g/dL (3.2-4.8); Anion Gap 11 (5-15); Aspartate Aminotransferase 14 U/L (13-40); BUN/Creatinine Ratio 10.2 (10.0-20.0); Bilirubin, Total 0.4 mg/dL (0.2-1.0); Blood Urea Nitrogen 11 mg/dL (9-23); Calcium 9.9 mg/dL (8.7-10.4); Carbon Dioxide 26 mmol/L (20-31); Chloride 105 mmol/L (98-107); Lipase 51 U/L (12-53); Potassium 3.5 mmol/L (3.5-5.1); Sodium 142 mmol/L (136-145); Total Protein 7.4 g/dL (5.7-8.2)
[2024-12-14 16:47] LABS: Alkaline Phosphatase 155 U/L (46-116); Glucose 197 mg/dL (74-106)
[2024-12-14] MEDS: diphenhdrAMINE HCL 50 MG/1 ML VL IV ONE (16:58)
[2024-12-14] MEDS: MORPHINE SULFATE 4 MG/ML SYR/VIAL IV ONE ×2 (17:54→21:43)
[2024-12-14] MEDS: PROCHLORPERAZINE EDISYLATE 5 MG/ML 2ML VIAL IV ONE (20:52)
[2024-12-15] MEDS: PROCHLORPERAZINE EDISYLATE 5 MG/ML 2ML VIAL IV ONE (02:10)
[2024-12-15] MEDS: ONDANSETRON HCL 4 MG/2 ML VIAL IM ONE (02:11)
[2024-12-15] MEDS: MORPHINE SULFATE 4 MG/ML SYR/VIAL IV ONE (02:20)
[2024-12-15 02:36] VITALS: TEMP 97.8; O2SAT 95
[2024-12-15 02:39] VITALS: BP 111/66; PULSE 93; RESP 20
--- NOTE | 2024-12-15 07:14 | ECG ---
[facility] Test Date: 2024-12-14 Test Time: 21:15:37 Pat Name: LEATHA HENSLEY Department: ED Room: Gender: F [employer]: : 1970 Requested By: RENA HAMM Order Number: [id number] Reading MD: Armaan Webber Measurements Intervals [place] Rate: 97 P: 57 DE: 128 QRS: -41 QRSD: 93 T: 67 QT: 353 QTc: 449 Interpretive Statements Sinus rhythm Probable left atrial enlargement Abnormal R-wave progression, late transition Left ventricular hypertrophy ST elev, probable normal early repol pattern Electronically Signed On 12-18-2024 12:40:30 PDT by Armaan Webber Please click the below link to view image of tracing.
== END 2024-12-15 03:00 | disposition short-term general hospital (02) ==
LOC: EDBD 15:29 → ER 15:29
DX: R11.2 Nausea with vomiting, unspecified (principal); R10.84 Generalized abdominal pain; R56.9 Unspecified convulsions; Z88.5 Allergy status to narcotic agent; Z88.0 Allergy status to penicillin; Z79.899 Other long term (current) drug therapy
CPT/HCPCS: 36415; 80053; 83605; 83690; 83880; 84484; 85025; 93005; 96365; 96372; 96375; 96376; 99285; J0500; J0780; J1200; J1953; J2270; J2405; J2765

== ENCOUNTER 2025-01-12 11:05 | Inpatient (IN) | payer OTHER, BC ==
[~2025-01-12] VITALS: Ht 165.1 cm; Wt 102.8 kg
[2025-01-12 11:29] LABS: Urine Bacteria None Seen /hpf (None Seen)
--- NOTE | 2025-01-12 11:29 | ED.PDOC ---
History of Present Illness HPI Comments 54 year old female presents to the ED with a chief complaint of hyperglycemia onset today (01/12/25). Son states patient's glucose at home was 470. Patient was out with her sister, came back home and was experiencing facial twitching, nausea/vomiting. Son states patient is on her second day of Macrobid, currently bring treated for UTI. Upon ED arrival, glucose was 450. Patient is a poor historian. PMHx epilepsy, DM. No other symptoms or modifying factors present at this time. Patient also endorsing sharp 10/10 left sided chest pain that was not relieved by nitro. She received ASA from EMS. Chief Complaint: Hyperglycemia Time Seen by MD: 11:20 Primary Care Provider: OOA Reviewed Notes: Medications, Allergies Allergies: Coded Allergies: Acetaminophen (Verified Allergy, Unknown, 10/20/19) Hydrocodone (Verified Allergy, Unknown, 10/20/19) Metformin (Verified Allergy, Unknown, 10/20/19) Metoclopramide (Verified Allergy, Unknown, 10/20/19) Penicillins (Verified Allergy, Unknown, 10/20/19) Home Meds Active Scripts Cefdinir (Cefdinir) 300 Mg Cap, 1 CAP PO BID for 7 Days, #14 CAP Prov:AMOS HERNÁNDEZ MD 12/05/24 Information Source: Patient, Relative Mode of Arrival: Wheelchair Severity: Moderate Timing: Hours Duration: Since onset Prehospital treatment: None Past Medical History PAST MEDICAL HISTORY: DM, Seizures Surgical History: Denies all surgeries CARDIOVASCULAR SONOGRAPHER History: No Pertinent CARDIOVASCULAR SONOGRAPHER History Family History Family History: Reviewed,noncontributory to illness, Unknown Social History Smoker: Non-Smoker Alcohol: Denies ETOH Use Drugs: Denies Drug Use Lives In: Home Constitutional: denies: chills, diaphoresis, fatigue, fever, malaise, sweats, weakness, others EENTM: denies: blurred vision, double vision, ear bleeding, ear discharge, ear drainage, ear pain, ear ringing, eye pain, eye redness, hearing loss, mouth pain, mouth swelling, nasal discharge, nose bleeding, nose congestion, nose pain, photophobia, tearing, throat pain, throat swelling, voice changes, others Respiratory: denies: cough, hemoptysis, orthopnea, SOB at rest, shortness of breath, SOB with excertion, stridor, wheezing, others Cardiovascular: denies: chest pain, dizzy spells, diaphoresis, Dyspnea on exertion, edema, irregular heart beat, left arm pain, lightheadedness, palpitations, PND, syncope, others Gastrointestinal: reports: abdominal pain, nausea, vomiting; denies: abdomen distended, blood streaked bowels, constipated, diarrhea, dysphagia, difficulty swallowing, hematemesis, melena, poor appetite, poor fluid intake, rectal bleeding, rectal pain, others Genitourinary: denies: abnormal vagina bleeding, burning, dyspareunia, dysuria, flank pain, frequency, hematuria, incontinence, pain, , vagina discharge, urgency, others Neurological: denies: dizziness, fainting, headache, left sided numbness, left sided weakness, numbness, paresthesia, pre-existing deficit, right sided numbness, right sided weakness, seizure, speech problems, tingling, tremors, weakness, others Musculoskeletal: denies: back pain, gout, joint pain, joint swelling, muscle pain, muscle stiffness, neck pain, others Integumetry: denies: bruises, change in color, change in hair/nails, dryness, laceration, lesions, lumps, rash, wounds, others Allergic/Immunocompromised: denies: Difficulty Healing, Frequent Infections, Hives, Itching, others Hematologic/Lymphatic: denies: anemia, blood clots, easy bleeding, easy bruising, swollen glands, others Endocrine: reports: others (hyperglycemia); denies: excessive hunger, excessive sweating, excessive thirst, excessive urination, flushing, intolerance to cold, intolerance to heat, unexplained weight gain, unexplained weight loss Psychiatric: denies: anxiety, bipolar disorder, depression, hopeless, panic disorder, schizophrenia, sleepless, suicidal, others All Other Systems: Reviewed and Negative Physical Exam General Appearance: Moderate Distress, Normal HEENT: Normal ENT Inspection, Pharynx Normal, TMs Normal, Other (dry mucous me mb) Neck: Full Range of Motion, Non-Tender, Normal, Normal Inspection Respiratory: Chest Non-Tender, Lungs Clear, No Accessory Muscle Use, No Respiratory Distress, Normal Breath Sounds Cardiovascular: No Edema, No JVD, No Murmur, No Gallop, Tachycardia Breast Exam: Deferred Gastrointestinal: No Organomegaly, Non Tender, No Pulsatile Mass, Normal Bowel Sounds, Soft Genitalia: Deferred Pelvic: Deferred Rectal: Deferred Extremities: No calf tenderness, Normal capillary refill, Normal inspection, Normal range of motion, Non-tender, No pedal edema Musculoskeletal : Apperance: Normal Neurologic: Alert, office bookkeeper II-XII nml as Tested, No Motor Deficits, Normal Affect, Normal Mood, No Sensory Deficits Cerebellar Function: Normal Reflexes: Normal Skin: Dry, Normal Color, Warm Lymphatic: No Adenopathy Was a procedure done? Was a procedure done?: No Differential Dx Considerations may include: ACS, CVA, electrolyte abnormalities, infectious etiology, viral syndrome X-Ray, Labs, Meds, VS Vital Signs Date Time Temp Pulse Resp B/P (MAP) Pulse Ox O2 Delivery O2 Flow Rate FiO2 01/12/25 12:51 106 18 184/94 01/12/25 12:25 102 18 90 Room Air* 0 21 01/12/25 12:25 98.0 102 18 184/94 (124) 90 98.0 01/12/25 11:12 99.0 103 24 106/96 (99) 96 99.0 Lab Test 01/12/25 11:40 01/12/25 11:22 Range/Units White Blood Count 8.5 4.4-10.8 10^3/uL Red Blood Count 4.40 4.0-5.20 10^6/uL Hemoglobin 13.1 12.2-16.2 g/dL Hematocrit 38.7 36.0-46.0 % Mean Corpuscular Volume 87.9 80.0-100.0 fL Mean Corpuscular Hemoglobin 29.9 28.0-32.0 pg Mean Corpuscular Hemoglobin Concent 34.0 32.0-36.0 g/dL Red Cell Distribution Width 13.8 11.8-14.3 % Platelet Count 286 140-450 10^3/uL Mean Platelet Volume 8.6 6.9-10.8 fL Neutrophils (%) (Auto) 85.2 H 37.0-80.0 % Lymphocytes (%) (Auto) 9.7 L 10.0-50.0 % Monocytes (%) (Auto) 4.0 0.0-12.0 % Eosinophils (%) (Auto) 0.8 0.0-7.0 % Basophils (%) (Auto) 0.3 0.0-2.0 % Neutrophils # (Auto) 7.2 1.6-8.6 10 ^3/uL Lymphocytes # (Auto) 0.8 0.4-5.4 10 ^3/uL Monocytes # (Auto) 0.3 0-1.3 10 ^3/uL Eosinophils # (Auto) 0.1 0-0.8 10 ^3/uL Basophils # (Auto) 0 0-0.2 10 ^3/uL Nucleated Red Blood Cells 0.1 % Sodium Level 134 L 136-145 mmol/L Potassium Level 4.1 3.5-5.1 mmol/L Chloride Level 100 98-107 mmol/L Carbon Dioxide Level 24 20-31 mmol/L Anion Gap 10 5-15 Blood Urea Nitrogen 19 9-23 mg/dL Creatinine 1.09 H 0.550-1.02 mg/dL Glomerular Filtration Rate Calc 60 >90 mL/min BUN/Creatinine Ratio 17.4 10.0-20.0 Serum Glucose 468 *H 74-106 mg/dL Lactic Acid Level 1.3 0.4-2.0 mmol/L Calcium Level 9.2 8.7-10.4 mg/dL Troponin I High Sensitivity 45 *H </=34 ng/L Beta-Hydroxybutyric Acid 1.309 H < 0.4 mmol/L Urine Color Light-yellow Yellow Urine Clarity Clear Clear Urine pH 7.0 5.0-9.0 Urine Specific [place] 1.014 1.001-1.035 Urine Protein 2+ H Negative Urine Ketones Trace Negative Urine Blood 1+ H Negative /uL Urine Nitrite Negative Negative Urine Bilirubin Negative Negative Urine Urobilinogen Normal Negative mg/dL Urine Leukocyte Esterase Negative Negative /uL Urine RBC 3 0 - 4 /hpf Urine Microscopic WBC 1 0-5 /HPF Urine Squamous Epithelial Cells None seen <5 /hpf Urine Bacteria None seen None Seen /hpf Urine Glucose 4+ H Normal mg/dL Urine Opiates Screen Neg NEGATIVE Urine Fentanyl Screen Neg NEGATIVE Urine Barbiturates Screen Neg NEGATIVE Urine Phencyclidine Screen Neg NEGATIVE Urine Amphetamines Screen Neg NEGATIVE Urine Benzodiazepines Screen Neg NEGATIVE Urine Cocaine Screen Neg NEGATIVE Urine Cannabinoids Screen Neg NEGATIVE Current Medications Medications (Trade) Dose Ordered Sig/Gordon Route Start Time Stop Time Status Last Admin Sodium Chloride 1,000 ml @ 1,000 mls/hr Q1H ONCE IV 01/12/25 11:30 01/12/25 12:29 DC 01/12/25 11:51 Ondansetron HCl (Zofran) 4 mg ONCE ONCE IV 01/12/25 11:30 01/12/25 11:31 DC 01/12/25 11:51 Famotidine (Pepcid Injection) 20 mg ONCE ONCE IV 01/12/25 11:30 01/12/25 11:31 DC 01/12/25 11:52 Lorazepam (Ativan Inj) 2 mg ONCE ONCE IV 01/12/25 12:00 01/12/25 12:01 DC 01/12/25 12:02 Levetiracetam 200 ml @ 400 mls/hr ONCE ONCE IV 01/12/25 12:45 01/12/25 13:14 DC 01/12/25 12:50 Morphine Sulfate 4 mg ONCE ONCE IV 01/12/25 12:45 01/12/25 12:46 DC 01/12/25 12:51 [place] [address] Ph: [phone] DIAGNOSTIC IMAGING Diagnostic Imaging Report : [id number] Signed PATIENT: LEATHA HENSLEY ACCT: [id number] UNIT: [id number] : 1970 LOC: ER ROOM / BED: / AGE / SEX: 54 / F ADM STATUS: REG ER SERVICE 1121 ORDERING PHYSICIAN: AMOS HERNÁNDEZ MD PROCEDURE(s): CXRP - CHEST PORTABLE REASON: vomiting ORDER NUMBER(s): [id number], ACCESSION NUMBER(s): [id number] CHEST RADIOGRAPH Indication: vomiting Technique: Single frontal view of the chest was obtained Comparison: XY CHEST PORTABLE on DOS: 11/28/24 FINDINGS: Lines and Tubes: None Lungs: No focal consolidation. Pleura: No effusion. No pneumothorax. Cardiomediastinal contours: Unremarkable Bones: No acute osseous abnormality. IMPRESSION: 1. No acute cardiopulmonary disease. ATED BY: JESSIKA NICOLE MD DICTATED DATE/TIME: 01/12/25 1232 SIGNED BY: JESSIKA NICOLE MD SIGNED DATE/TIME: 01/12/25 1232 CC: Time of 1ST Reevaluation: 11:50 Reevaluation 1ST: Unchanged Patient Education/Counseling: Diagnosis, Treatment, Prognosis Family Education/Counseling: Diagnosis, Treatment, Prognosis Sepsis Sepsis Reasesment Focused Exam Orders: Laboratory Tests 01/12/25 11:40: Lactic Acid Level 1.3 Departure 1 Departure Time of Disposition: 13:21 ([place] Authorization to admit to [facility] [id number] with worsening altered mental status, elevated blood sugar, and elevated troponin. Discussed with [place] physician agreed that patient is not safe for transfer. We will admit patient here for further workup and expert consultation) Impression: Primary Impression: Acute chest pain Additional Impressions: Acute metabolic encephalopathy Uncontrolled diabetes mellitus Qualified Codes: E11.65 - Type 2 diabetes mellitus with hyperglycemia Seizures Disposition: ADMITTED INPATIENT Admit to: Med Surg Condition: Guarded Critical Care Note Critical Care Time?: Yes Critical care comment: Altered mental status Authorized and Performed by: Amos Hernández MD Total critical care time: Approximately 34 minutes Due to a high probability of clinically significant, life threatening deterioration, the patient required my highest level of preparedness to intervene emergently and I personally spent this critical care time directly and personally managing the patient. This critical care time included obtaining a history; examining the patient; pulse oximetry; ordering and review of studies; arranging urgent treatment with development of a management plan; evaluation of patient's response to treatment; frequent reassessment; and, discussions with other providers. This critical care time was performed to assess and manage the high probability of imminent, life-threatening deterioration that could result in multi-organ failure. It was exclusive of separately billable procedures and treating other patients and teaching time. Please see my other sections and the rest of the note for further information on patient assessment and treatment. Stability Stability form required: No I personally scribed for AMOS HERNÁNDEZ MD ([email or web address]) on 01/12/25 at 11:29. Electronically submitted by Hanny Aparicio ([email or web address]). I personally scribed for AMOS HERNÁNDEZ MD ([email or web address]) on 01/12/25 at 12:39. Electronically submitted by Hanny Aparicio ([email or web address]). AMOS HERNÁNDEZ MD Jan 12, 2025 11:29
[2025-01-12 11:37] LABS: Urine Blood 1+ /uL (Negative); Urine Clarity Clear (Clear); Urine Color Light-Yellow (Yellow); Urine Protein, UAD 2+ (Negative); Urine Specific Gravity 1.014 (1.001-1.035); Urine Squamous Epithelial Cell None Seen /hpf (<5); Urine Urobilinogen Normal (Negative); Urine WBC 1 /HPF (0-5)
[2025-01-12] MEDS: SODIUM CHLORIDE 0.9% 1,000 ML IV ONE (11:51)
[2025-01-12] MEDS: ONDANSETRON HCL 4 MG/2 ML VIAL IV ONE ×2 (11:51→12:51)
[2025-01-12 11:52] LABS: Amphetamine Screen, Urine Neg (NEGATIVE); Barbiturate Scree,Urine Neg (NEGATIVE); Benzodiazephine Screen, Urine Neg (NEGATIVE); Cannabinoid Screen, Urine Neg (NEGATIVE); Cocaine Screen, Urine Neg (NEGATIVE); Opiate Scree,Urine Neg (NEGATIVE); Phencyclidine Screen, Urine Neg (NEGATIVE)
[2025-01-12] MEDS: FAMOTIDINE (10MG/ML) 2ML VL IV ONE (11:52)
[2025-01-12 11:57] LABS: Basophils # (auto) 0 10 ^3/uL (0-0.2); Basophils % (auto) 0.3 % (0.0-2.0); Eosinophils # (auto) 0.1 10 ^3/uL (0-0.8); Eosinophils % (auto) 0.8 % (0.0-7.0); Hematocrit 38.7 % (36.0-46.0); Hemoglobin 13.1 g/dL (12.2-16.2); Lymphocytes # (auto) 0.8 10 ^3/uL (0.4-5.4); Lymphocytes % (auto) 9.7 % (10.0-50.0); Mean Corpuscular Hemoglobin 29.9 pg (28.0-32.0); Mean Corpuscular Volume 87.9 fL (80.0-100.0); Monocytes # (auto) 0.3 10 ^3/uL (0-1.3); Neutrophils # (auto) 7.2 10 ^3/uL (1.6-8.6); Neutrophils % (auto) 85.2 % (37.0-80.0); Nucleated Red Blood Cells % 0.1 %; Platelet Count (auto) 286 10^3/uL (140-450); Red Cell Distribution Width 13.8 % (11.8-14.3); White Blood Cell 8.5 10^3/uL (4.4-10.8)
[2025-01-12] MEDS: LORazepam 2MG/ML-1ML VIAL ONE (12:01)
[2025-01-12] MEDS: LORazepam 2MG/ML-1ML VIAL IV ONE (12:02)
[2025-01-12 12:04] LABS: Chloride 100 mmol/L (98-107); Potassium 4.1 mmol/L (3.5-5.1)
[2025-01-12 12:05] LABS: Anion Gap 10 (5-15); Calcium 9.2 mg/dL (8.7-10.4); Carbon Dioxide 24 mmol/L (20-31); Sodium 134 mmol/L (136-145)
[2025-01-12 12:10] LABS: BUN/Creatinine Ratio 17.4 (10.0-20.0); Blood Urea Nitrogen 19 mg/dL (9-23)
[2025-01-12 12:25] VITALS: PULSE 102; RESP 18; O2SAT 90
--- NOTE | 2025-01-12 12:35 | DVH ---
CHEST RADIOGRAPH Indication: vomiting Technique: Single frontal view of the chest was obtained Comparison: XY CHEST PORTABLE on DOS: 11/28/24 FINDINGS: Lines and Tubes: None Lungs: No focal consolidation. Pleura: No effusion. No pneumothorax. Cardiomediastinal contours: Unremarkable Bones: No acute osseous abnormality. IMPRESSION: 1. No acute cardiopulmonary disease.
[2025-01-12 12:50] LABS: Glucose 468 mg/dL (74-106)
[2025-01-12] MEDS: levETIRAcetam 1000 mg/100ml 200 ML IV ONE (12:50)
[2025-01-12] MEDS: MORPHINE SULFATE 4 MG/ML SYR/VIAL IV ONE (12:51)
[2025-01-12] MEDS: diphenhdrAMINE HCL 50 MG/1 ML VL IV ONE (16:38)
[2025-01-12] MEDS: METOCLOPRAMIDE HCL 5MG/ml INJ 2ml VIAL IV ONE (16:38)
[2025-01-12] MEDS ORDERED: TEMAZEPAM 15 MG CAP PO PRN (19:15)
[2025-01-12] MEDS ORDERED: DEXTROSE (50%) 50ML SYRG IV PRN (19:15)
[2025-01-12] MEDS ORDERED: NITROGLYCERIN 0.4 MG SL TAB SL PRN (19:15)
[2025-01-12] MEDS ORDERED: MORPHINE SULFATE INJ 2 MG/ml SYRG IV PRN (19:15)
[2025-01-12] MEDS: ACCU-CHEK COMFORT CURVE STRIP VI SCH (20:06)
[2025-01-12] MEDS: InsuLIN REG 1unit/0.01ml Soln (100units/ml) SC SCH (20:20)
[2025-01-12] MEDS: ONDANSETRON HCL 4 MG/2 ML VIAL IV PRN (21:23)
--- NOTE | 2025-01-12 22:00 | DVHHP2 ---
History of Present Illness Reason for Visit: Chest pain History of Present Illness 54-year-old female presents with complaints of chest pain. Patient initially presented with complaints of chest pain. She reported substernal sharp chest pain which has subsided now she is complaining of diffuse abdominal pain with associated nausea. Denies fever or chills. Past Medical History Diabetes mellitus, hypertension and seizures Past Surgical History Denies Family History Noncontributory Smoke: No ALCOHOL: none Drugs: None Lives: with Family Review of Systems Review of Systems Review of Systems are currently negative otherwise addressed in HPI. Allergies: Coded Allergies: Acetaminophen (Verified Allergy, Unknown, 10/20/19) Hydrocodone (Verified Allergy, Unknown, 10/20/19) Metformin (Verified Allergy, Unknown, 10/20/19) Metoclopramide (Verified Allergy, Unknown, 10/20/19) Penicillins (Verified Allergy, Unknown, 10/20/19) Medications Current Medications Medications Dose Ordered Sig/Gordon Route Start Time Stop Time Status Last Admin Dose Admin Aspirin 81 mg DAILY PO 01/13/25 10:00 Atorvastatin Calcium 10 mg HS PO 01/12/25 22:00 Pantoprazole Sodium 40 mg DAILY@0600 PO 01/13/25 06:00 Amlodipine Besylate 10 mg DAILY PO 01/13/25 10:00 Diagnostic Test (Pha) 1 strip IQ4HR 01/12/25 20:00 01/12/25 20:06 1 STRIP Insulin Human Regular IQ4HR SC 01/12/25 20:00 01/12/25 20:20 10 UNITS Dextrose 50 ml UD PRN IV 01/12/25 19:15 Temazepam 15 mg QHSP PRN PO 01/12/25 19:15 Ondansetron HCl 4 mg Q4HP PRN IV 01/12/25 19:15 01/12/25 21:23 4 MG Nitroglycerin 0.4 mg Q5MINP PRN SL 01/12/25 19:15 Morphine Sulfate 2 mg Q30M PRN IV 01/12/25 19:15 Exam Vital Signs Vital Signs Date Time Temp Pulse Resp B/P (MAP) Pulse Ox O2 Delivery O2 Flow Rate FiO2 01/12/25 20:37 98.6 114 21 169/95 (119) 98 98.6 01/12/25 12:25 Room Air* 0 21 Exam Gen: 54-year-old female in mild distress, obese Skin: Warm, dry, normal color and texture, no rash. HEENT: Normocephalic atraumatic, mucous membranes moist and pink. Neck: Cervical and supraclavicular nodes normal without enlargement, trachea is midline, thyroid gland is normal without masses. Pulmonary: Clear to auscultation and percussion bilaterally. Cardiac: Regular rate and rhythm. No murmur Abdomen: Soft, diffuse tenderness, nondistended, bowel sounds present all 4 quadrants, no guarding, no rigidity, no organomegaly. Extremities: No cyanosis, clubbing, no edema Neuro: Cranial nerves II through XII grossly intact, normal affect and speech, no focal motor deficits. Labs/Xrays ORDERING PHYSICIAN: AMOS PEREZ MD PROCEDURE(s): CXRP - CHEST PORTABLE REASON: vomiting ORDER NUMBER(s): [id number], ACCESSION NUMBER(s): [id number] CHEST RADIOGRAPH Indication: vomiting Technique: Single frontal view of the chest was obtained Comparison: XY CHEST PORTABLE on DOS: 11/28/24 FINDINGS: Lines and Tubes: None Lungs: No focal consolidation. Pleura: No effusion. No pneumothorax. Cardiomediastinal contours: Unremarkable Bones: No acute osseous abnormality. IMPRESSION: 1. No acute cardiopulmonary disease. Labs Test 01/12/25 20:32 01/12/25 20:05 01/12/25 11:40 01/12/25 11:22 Range/Units Troponin I High Sensitivity 32 </=34 ng/L POC Glucose 428 *H 70-106 mg/dl White Blood Count 8.5 4.4-10.8 10^3/uL Red Blood Count 4.40 4.0-5.20 10^6/uL Hemoglobin 13.1 12.2-16.2 g/dL Hematocrit 38.7 36.0-46.0 % Mean Corpuscular Volume 87.9 80.0-100.0 fL Mean Corpuscular Hemoglobin 29.9 28.0-32.0 pg Mean Corpuscular Hemoglobin Concent 34.0 32.0-36.0 g/dL Red Cell Distribution Width 13.8 11.8-14.3 % Platelet Count 286 140-450 10^3/uL Mean Platelet Volume 8.6 6.9-10.8 fL Neutrophils (%) (Auto) 85.2 H 37.0-80.0 % Lymphocytes (%) (Auto) 9.7 L 10.0-50.0 % Monocytes (%) (Auto) 4.0 0.0-12.0 % Eosinophils (%) (Auto) 0.8 0.0-7.0 % Basophils (%) (Auto) 0.3 0.0-2.0 % Neutrophils # (Auto) 7.2 1.6-8.6 10 ^3/uL Lymphocytes # (Auto) 0.8 0.4-5.4 10 ^3/uL Monocytes # (Auto) 0.3 0-1.3 10 ^3/uL Eosinophils # (Auto) 0.1 0-0.8 10 ^3/uL Basophils # (Auto) 0 0-0.2 10 ^3/uL Nucleated Red Blood Cells 0.1 % Sodium Level 134 L 136-145 mmol/L Potassium Level 4.1 3.5-5.1 mmol/L Chloride Level 100 98-107 mmol/L Carbon Dioxide Level 24 20-31 mmol/L Anion Gap 10 5-15 Blood Urea Nitrogen 19 9-23 mg/dL Creatinine 1.09 H 0.550-1.02 mg/dL Glomerular Filtration Rate Calc 60 >90 mL/min BUN/Creatinine Ratio 17.4 10.0-20.0 Serum Glucose 468 *H 74-106 mg/dL Lactic Acid Level 1.3 0.4-2.0 mmol/L Calcium Level 9.2 8.7-10.4 mg/dL Beta-Hydroxybutyric Acid 1.309 H < 0.4 mmol/L Urine Color Light-yellow Yellow Urine Clarity Clear Clear Urine pH 7.0 5.0-9.0 Urine Specific [place] 1.014 1.001-1.035 Urine Protein 2+ H Negative Urine Ketones Trace Negative Urine Blood 1+ H Negative /uL Urine Nitrite Negative Negative Urine Bilirubin Negative Negative Urine Urobilinogen Normal Negative mg/dL Urine Leukocyte Esterase Negative Negative /uL Urine RBC 3 0 - 4 /hpf Urine Microscopic WBC 1 0-5 /HPF Urine Squamous Epithelial Cells None seen <5 /hpf Urine Bacteria None seen None Seen /hpf Urine Glucose 4+ H Normal mg/dL Urine Opiates Screen Neg NEGATIVE Urine Fentanyl Screen Neg NEGATIVE Urine Barbiturates Screen Neg NEGATIVE Urine Phencyclidine Screen Neg NEGATIVE Urine Amphetamines Screen Neg NEGATIVE Urine Benzodiazepines Screen Neg NEGATIVE Urine Cocaine Screen Neg NEGATIVE Urine Cannabinoids Screen Neg NEGATIVE Assessment/Plan Assessment/Plan Assessment Chest pain Acute abdominal pain Uncontrolled diabetes mellitus Acute kidney injury Plan Admit the patient to telemetry to the hospitalist Echocardiogram pending CT of the abdomen and pelvis pending Clear liquid diet Continue treatment per orders. Plan discussed with: Patient My Orders Orders - RAYMUNDO SMITH Procedure Category Date Status Time Aspirin Tablet PHA 01/13/25 In Process 10:00 Atorvastatin (Lipitor) PHA 01/12/25 In Process 22:00 Pantoprazole Tablet PHA 01/13/25 In Process (Protonix Tablet) 06:00 Amlodipine Tablet PHA 01/13/25 In Process (Norvasc Tablet) 10:00 Basic Metabolic Panel LAB 01/13/25 Verified 04:00 Glucose Blood PHA 01/12/25 In Process (Accu-Chek Comfort 20:00 Insulin R (Human) PHA 01/12/25 In Process (Insulin R) 20:00 Dextrose 50% Syringe PHA 01/12/25 In Process 19:15 Admit ADMIT 01/12/25 Transmitted 19:01 Temazepam (Restoril) PHA 01/12/25 In Process 19:15 Ondansetron Hcl PHA 01/12/25 In Process (Zofran) 19:15 Echo 2d Mode Cardiac US 01/12/25 Logged DOP 19:01 Condition: Fair ANTONIO 01/12/25 In Process 19:01 Bedside Commode ANTONIO 01/12/25 In Process 19:01 Nitroglycerin PHA 01/12/25 In Process Sublingual (Ntrostat 19:15 Morphine Sulfate PHA 01/12/25 In Process Injection 19:15 Stat Ekg For Chest ANTONIO 01/12/25 In Process Pain 19:01 Notify Md Of Changes ANTONIO 01/12/25 In Process From Base 19:01 Sulfonation Equipment Operator For ANTONIO 01/12/25 In Process 24 Hours 19:01 Emergency Dysrhythmia ANTONIO 01/12/25 In Process Protocol 19:01 Rhythm Strips Once ANTONIO 01/12/25 In Process Every Shift 19:01 Oxygen By Nasal RT 01/12/25 Transmitted Cannula 19:01 Date of Service: Jan 12, 2025 Billing Provider: RAYMUNDO SMITH Common Visit Codes: [id number] INP/OBS CARE (HIGH) [facility] Jan 12, 2025 22:00
[2025-01-12] MEDS: PROCHLORPERAZINE EDISYLATE 5 MG/ML 2ML VIAL IV ONE (22:23)
[2025-01-12] MEDS: MORPHINE SULFATE 4 MG/ML SYR/VIAL IV PRN (22:24)
[2025-01-12 23:01] LABS: HDL Cholesterol 52 mg/dL (40-59)
[2025-01-12 23:08] LABS: Cholesterol 289 mg/dL (< 200); LDL Cholesterol 199 mg/dL (< 100); Triglycerides 226 mg/dL (< 150)
[2025-01-12 23:27] LABS: Lipase 39 U/L (12-53)
[2025-01-13] VITALS (9 sets, daily range): BP systolic 110–175; BP diastolic 56–91; PULSE 59–106; RESP 15–19; TEMP 97.8–98.6; O2SAT 96–99
[2025-01-13] MEDS: ATORVASTATIN 20 MG TAB PO SCH ×2 (01:11→21:15)
[2025-01-13] MEDS: levETIRAcetam 500 MG TAB PO SCH (01:11)
[2025-01-13] MEDS: LABETALOL HCL 20 MG/4 ML VL IV ONE (01:30)
[2025-01-13] MEDS: diphenhdrAMINE HCL 25 MG CAP PO ONE (02:47)
[2025-01-13] MEDS: LORazepam 2MG/ML-1ML VIAL IV PRN (04:04)
[2025-01-13] MEDS: LORazepam 2MG/ML-1ML VIAL ONE (04:17)
[2025-01-13] MEDS: PANTOPRAZOLE 40 MG TAB PO SCH (05:16)
[2025-01-13] MEDS: hydrALAZINE HCL 20 MG/ML VL IV ONE (05:17)
[2025-01-13 05:54] LABS: Chloride 104 mmol/L (98-107); Potassium 4.2 mmol/L (3.5-5.1); Sodium 142 mmol/L (136-145)
[2025-01-13 05:55] LABS: Calcium 9.6 mg/dL (8.7-10.4)
[2025-01-13 06:00] LABS: BUN/Creatinine Ratio 17.3 (10.0-20.0); Blood Urea Nitrogen 18 mg/dL (9-23)
[2025-01-13 06:01] LABS: Glucose 380 mg/dL (74-106)
[2025-01-13 06:07] LABS: Anion Gap 13 (5-15); Carbon Dioxide 25 mmol/L (20-31)
[2025-01-13] MEDS: amLODIPine BESYLATE 5 MG TAB PO SCH (09:27)
[2025-01-13] MEDS: ASPirin 81 mg TAB PO SCH (09:28)
--- NOTE | 2025-01-13 09:28 | DVH ---
CLINICAL INFORMATION: Abdominal pain. TECHNIQUE: Axial CT images of the abdomen and pelvis were obtained without IV contrast. Coronal and s agittal reformatted images were obtained, reviewed, and stored. Evaluation of the parenchymal organs is limited without IV contrast. Evaluation of the bowel and mesentery is limited without oral contras t. All CT scans at this medical facility are performed using dose modulation techniques as appropriat e to a performed exam including the following: Automated exposure control was utilized; adjustment of the MA and/or KV according to patient size; and use of iterative reconstruction technique. CTDIvol = 26.62 mGy DLP = 1548.95 mGy-cm COMPARISON: CT CT AB PEL WO CON-NO ORAL OR IV on DOS: 11/28/24, CT CT AB PEL WO CON-NO ORAL OR IV on D OS: 10/05/24 FINDINGS: Lung bases: Atelectasis in the lung bases. Liver: Hepatic steatosis. Liver is enlarged, measuring up to 17 cm in craniocaudal dimension at the m idclavicular line. Biliary: Cholecystectomy. Spleen: Unremarkable. Pancreas: Questionable edema and minimal stranding of the pancreatic head. Adrenal glands: Unremarkable. No mass. Kidneys: No hydronephrosis. 1 mm nonobstructing calculus of the mid to inferior pole of the right kid susan. No obstructing calculi. Aorta/Vascular: Moderate atherosclerotic calcification. No abdominal aortic aneurysm. Retroperitoneum: Mildly prominent subcentimeter periaortic lymph nodes, unchanged. Bowel/mesentery: No small bowel obstruction. No free air or free fluid. Appendix is visualized and ap pears unremarkable. Moderate stool in the colon. Pelvic organs: Hysterectomy. Bladder: Cantu catheter extends into the bladder. There is gas within the bladder, likely due to Fole y catheter placement. Abdominal wall: No mass or hernia. Bones: No acute fracture or suspicious intraosseous lesion. IMPRESSION: 1. Questionable minimal stranding of the pancreatic head with mild edema. Acute pancreatitis not excl uded in the appropriate clinical setting. Correlate with clinical findings. 2. Hepatomegaly and hepatic steatosis. 3. Additional nonacute findings as described above.
[2025-01-13] MEDS ORDERED: DEXTROSE (50%) 50ML SYRG IV PRN (11:45)
--- NOTE | 2025-01-13 11:53 | DVHPN2 ---
Progress Note Date Seen: Jan 13, 2025 Medical Necessity Reason Pt with a Central, PICC or Fol: No Subjective Patient reports: No new complaints Review of Systems: HEENT:Normal, CVS:Normal, RESPIRATORY:Normal, GI:Normal, :Normal, MSK:Normal, NEURO:Normal Objective vital signs Vital Sign Date Time Temp Pulse Resp B/P (MAP) Pulse Ox O2 Delivery O2 Flow Rate FiO2 01/13/25 09:27 153/90 01/13/25 09:00 98.6 98 15 98 98.6 01/13/25 08:00 Nasal Cannula* 2 28 Total Intake and Output 01/12/25 01/12/25 01/13/25 15:00 23:00 07:00 Intake Total 400 ml Output Total 750 ml Balance -350 ml medications Current Medications Medications Dose Ordered Sig/Gordon Route Start Time Stop Time Status Last Admin Dose Admin Aspirin 81 mg DAILY PO 01/13/25 10:00 01/13/25 09:28 81 MG Atorvastatin Calcium 10 mg HS PO 01/12/25 22:00 Pantoprazole Sodium 40 mg DAILY@0600 PO 01/13/25 06:00 Amlodipine Besylate 10 mg DAILY PO 01/13/25 10:00 01/13/25 09:27 10 MG Diagnostic Test (Pha) 1 strip IQ4HR 01/12/25 20:00 01/13/25 08:26 1 STRIP Insulin Human Regular IQ4HR SC 01/12/25 20:00 01/13/25 08:53 10 UNITS Dextrose 50 ml UD PRN IV 01/12/25 19:15 Temazepam 15 mg QHSP PRN PO 01/12/25 19:15 Ondansetron HCl 4 mg Q4HP PRN IV 01/12/25 19:15 01/13/25 08:24 4 MG Nitroglycerin 0.4 mg Q5MINP PRN SL 01/12/25 19:15 Morphine Sulfate 2 mg Q30M PRN IV 01/12/25 19:15 Levetiracetam 500 mg BID PO 01/12/25 22:00 01/13/25 09:27 500 MG Morphine Sulfate 2 mg Q6HPRN PRN IV 01/12/25 22:00 01/13/25 06:58 2 MG Lorazepam 1 mg Q5MINP PRN IV 01/13/25 04:15 01/13/25 04:04 1 MG Examination: GENERAL:Normal, HEENT:Normal, NECK:Normal, LUNGS:Normal, CVS:Normal, ABDOMEN:Normal, MSK:Normal, SKIN:Normal, NEURO:Normal, :Normal laboratory and microbiology Laboratory Tests 01/13/25 05:19 01/12/25 11:40 Test 01/13/25 05:19 Range/Units Serum Glucose 380 H 74-106 mg/dL Microbiology Date/Time Source Procedure Growth Status 01/12/25 11:44 Blood Blood Culture - Preliminary NO GROWTH AFTER 24 HOURS OF INCUBATION. Resulted Problem List/Assessment/Plan Problem List/Assessment/Plan #1 persistent vomiting ?gastroparesis: gi eval, reglan #2 uncontrolled dm: lantus, ssi #3 htn #4 breakthrough seizures: keppra, neuro eval #5 ?acute on chronic diastolic/systolic heart failure: lasix, echo #6 ckd stage 2 #7 hyperlipidemia #8 obesity #9 hepatic steatosis advance care planning- full code- time spent 18 mins Plan discussed with: Patient My Orders My Orders Orders - RAYMUNDO LYNCH MD Procedure Category Date Status Time Atorvastatin (Lipitor) PHA 01/13/25 Verified 22:00 Full Liq Diet DIET 01/13/25 Verified Lunch * Gi Dvh Pitting Machine Operator CONS 01/13/25 Verified 11:44 * Neurology Consult CONS 01/13/25 Verified 11:44 Insulin Lantus PHA 01/13/25 Verified (Glargine) (Lantus) 22:00 Insulin Lantus PHA 01/13/25 Verified (Glargine) (Lantus) 11:45 Glucose Blood PHA 01/13/25 Verified (Accu-Chek Comfort 17:00 Bedtime Insulin Scale PHA 01/13/25 Verified 22:00 Moderate Insulin Ss PHA 01/13/25 Verified 17:00 Date of Service: Jan 13, 2025 Billing Provider: RAYMUNDO LYNCH MD Common Visit Codes: [id number] INP/OBS CARE(HIGH) Secondary Visit Codes: [id number] CARE PLAN 30 MINUTES RAYMUNDO LYNCH MD Jan 13, 2025 11:53
--- NOTE | 2025-01-13 12:04 | DVHSR ---
APPROVED REPORT EXAM: Two-dimensional and M-mode echocardiogram with Doppler and color Doppler. Blood Pressure: 173/79 mmHg INDICATION EF RISK FACTORS Obesity: Height: 5'5", Weight: 228 DIMENSIONS LVDd4.5 (3.8-5.7cm)LA (2D)3.3 (1.9-4.0cm)Aortic Root3.9 (2.0-3.7cm) LVDs2.9 (2.5-4.0cm)LA (MM) (1.9-4.0cm)Aortic Cusp Exc1.8 (1.5-2.0cm) EF (%) 60.0 (55-70%)Rt. Atrium (1.9-4.0cm)Asc. Aorta3.9 cm IVSd1.2 (0.7-1.1cm)RV (D) (1.8-2.4cm) PWd1.2 (0.7-1.1cm) Mitral Valve MitralMitral Stenosis E wave0.87m/sMV Mean GR.mmHg A wave0.85m/sMV Peak GR.mmHg E/A ratio1.02D MVAcm2 DECEL [id number] 1/2 Timems Aortic Valve Aortic ValveAortic Stenosis V11.06m/Shira Mean GR.4mmHg V21.39m/Shira Peak GR.8mmHg LVOT Diameter1.8 (1.8-2.4cm)Doppler AVA1.94cm2 Pulmonic Valve V21.04m/s Other Information Technically limited study due to body habitus, patient lying flat. Conclusion lvef 55-60% mild LVH normal rv function no severe valve abnormalities noted
[2025-01-13] MEDS: FUROSEMIDE 20 MG/2 ML VIAL IV ONE (13:55)
[2025-01-13] MEDS: INSULIN LANTUS (GLARGINE) 1 /0.01ml (100units/ml) SC ONE (14:06)
[2025-01-13] MEDS ORDERED: METOCLOPRAMIDE HCL 10 MG TAB PO SCH (17:00)
[2025-01-13] MEDS: diphenhdrAMINE HCL 25 MG CAP PO PRN (17:53)
[2025-01-13] MEDS: METOCLOPRAMIDE HCL 5MG/ml INJ 2ml VIAL IV SCH (17:53)
[2025-01-13] MEDS: ACCU-CHEK COMFORT CURVE STRIP VI SCH (18:18)
[2025-01-13] MEDS: InsuLIN REG 1unit/0.01ml Soln (100units/ml) SC SCH ×2 (18:21→21:19)
--- NOTE | 2025-01-13 18:46 | DVHINCON2 ---
Date of service: Jan 13, [address] Danielson Reason for Consultation 54-year-old female with a history of hypoglycemic episode at home came back with facial teaching nausea vomiting anorexia. P History of Present Illness 54-year-old with complaints of abdominal pain nausea vomiting and hyperglycemia patient is currently being treated for UTI. 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 Family History Noncontributory Social History Denies smoking or drinking Allergies: Coded Allergies: Acetaminophen (Verified Allergy, Unknown, 10/20/19) Hydrocodone (Verified Allergy, Unknown, 10/20/19) Metformin (Verified Allergy, Unknown, 10/20/19) Penicillins (Verified Allergy, Unknown, 10/20/19) Home Meds Active Scripts Cefdinir (Cefdinir) 300 Mg Cap, 1 CAP PO BID for 7 Days, #14 CAP Prov:AMOS PEREZ MD 12/05/24 Current Medications Current Medications Medications (Trade) Dose Ordered Sig/Gordon Route PRN Reason Start Time Stop Time Status Last Admin Aspirin 81 mg DAILY PO 01/13/25 10:00 01/13/25 09:28 Atorvastatin Calcium (Lipitor) 10 mg HS PO 01/12/25 22:00 01/13/25 11:50 DC Pantoprazole Sodium (Protonix Tablet) 40 mg DAILY@0600 PO 01/13/25 06:00 Amlodipine Besylate (Norvasc Tablet) 10 mg DAILY PO 01/13/25 10:00 01/13/25 09:27 Diagnostic Test (Pha) (Accu-Chek Comfort Curve T) 1 strip IQ4HR 01/12/25 20:00 01/13/25 11:50 DC 01/13/25 08:26 Insulin Human Regular (InsuLIN R) IQ4HR SC 01/12/25 20:00 01/13/25 11:50 DC 01/13/25 08:53 Dextrose 50 ml UD PRN IV Blood Sugar LESS THAN 60 01/12/25 19:15 01/13/25 12:00 DC Temazepam (Restoril) 15 mg QHSP PRN PO FOR INSOMNIA 01/12/25 19:15 Ondansetron HCl (Zofran) 4 mg Q4HP PRN IV NAUSEA / VOMITING 01/12/25 19:15 01/13/25 15:12 Nitroglycerin (Ntrostat Sublingual) 0.4 mg Q5MINP PRN SL FOR CHEST PAIN 01/12/25 19:15 Morphine Sulfate 2 mg Q30M PRN IV FOR CHEST PAIN 01/12/25 19:15 Levetiracetam (Keppra Tablet) 500 mg BID PO 01/12/25 22:00 01/13/25 09:27 Morphine Sulfate 2 mg Q6HPRN PRN IV MODERATE PAIN (4-6 PAIN SCALE) 01/12/25 22:00 01/13/25 15:12 Lorazepam (Ativan Inj) 1 mg Q5MINP PRN IV SEIZURES 01/13/25 04:15 01/13/25 04:04 Atorvastatin Calcium (Lipitor) 40 mg HS PO 01/13/25 22:00 Insulin Glargine (Lantus) 50 units HS SC 01/13/25 22:00 Diagnostic Test (Pha) (Accu-Chek Comfort Curve T) 1 strip ACHS 01/13/25 17:00 01/13/25 18:18 Insulin Human Regular (InsuLIN R) HS SC 01/13/25 22:00 Insulin Human Regular (InsuLIN R) AC SC 01/13/25 17:00 01/13/25 18:21 Dextrose 50 ml UD PRN IV Blood Sugar LESS THAN 60 01/13/25 11:45 Metoclopramide HCl (Reglan Tablet) 5 mg ACHS PO 01/13/25 17:00 01/13/25 15:56 DC Metoclopramide HCl (Reglan Injection) 10 mg Q8HR IV 01/13/25 17:00 01/13/25 17:53 Diphenhydramine HCl (Benadryl Capsule) 25 mg Q8HP PRN PO FOR ITCHING 01/13/25 16:15 01/13/25 17:53 Review of Systems Noncontributory Vital Signs Vital Signs Date Time Temp Pulse Resp B/P (MAP) Pulse Ox O2 Delivery O2 Flow Rate FiO2 01/13/25 17:00 97.8 91 16 110/67 (81) 97 97.8 01/13/25 08:00 Nasal Cannula* 2 28 Physical Exam Moderately built and nourished female in no acute distress HEENT examination no pallor no icterus Lungs clearl Cardiovascular normal Abdomen is soft mild tenderness in the epigastrium no rigidity no guarding no masses bowel sounds normal Extremities no edema Neuro grossly intact Labs/Diagnostic Data Labs Test 01/13/25 13:49 01/13/25 05:19 01/12/25 20:32 01/12/25 11:40 Range/Units POC Glucose 355 H 70-106 mg/dl Sodium Level 142 # 136-145 mmol/L Potassium Level 4.2 3.5-5.1 mmol/L Chloride Level 104 98-107 mmol/L Carbon Dioxide Level 25 20-31 mmol/L Anion Gap 13 5-15 Blood Urea Nitrogen 18 9-23 mg/dL Creatinine 1.04 H 0.550-1.02 mg/dL Glomerular Filtration Rate Calc 64 >90 mL/min BUN/Creatinine Ratio 17.3 10.0-20.0 Serum Glucose 380 H 74-106 mg/dL Calcium Level 9.6 8.7-10.4 mg/dL Troponin I High Sensitivity 32 </=34 ng/L Triglycerides Level 226 H < 150 mg/dL Cholesterol Level 289 H < 200 mg/dL LDL Cholesterol 199 H < 100 mg/dL HDL Cholesterol 52 40-59 mg/dL Lipase 39 12-53 U/L Thyroid Stimulating Hormone (TSH) 0.92 0.55-4.78 uIU/mL White Blood Count 8.5 4.4-10.8 10^3/uL Red Blood Count 4.40 4.0-5.20 10^6/uL Hemoglobin 13.1 12.2-16.2 g/dL Hematocrit 38.7 36.0-46.0 % Mean Corpuscular Volume 87.9 80.0-100.0 fL Mean Corpuscular Hemoglobin 29.9 28.0-32.0 pg Mean Corpuscular Hemoglobin Concent 34.0 32.0-36.0 g/dL Red Cell Distribution Width 13.8 11.8-14.3 % Platelet Count 286 140-450 10^3/uL Mean Platelet Volume 8.6 6.9-10.8 fL Neutrophils (%) (Auto) 85.2 H 37.0-80.0 % Lymphocytes (%) (Auto) 9.7 L 10.0-50.0 % Monocytes (%) (Auto) 4.0 0.0-12.0 % Eosinophils (%) (Auto) 0.8 0.0-7.0 % Basophils (%) (Auto) 0.3 0.0-2.0 % Neutrophils # (Auto) 7.2 1.6-8.6 10 ^3/uL Lymphocytes # (Auto) 0.8 0.4-5.4 10 ^3/uL Monocytes # (Auto) 0.3 0-1.3 10 ^3/uL Eosinophils # (Auto) 0.1 0-0.8 10 ^3/uL Basophils # (Auto) 0 0-0.2 10 ^3/uL Nucleated Red Blood Cells 0.1 % Hemoglobin A1c 10.2 H <5.7 % A1C Lactic Acid Level 1.3 0.4-2.0 mmol/L Beta-Hydroxybutyric Acid 1.309 H < 0.4 mmol/L Test 01/12/25 11:22 Range/Units Urine Color Light-yellow Yellow Urine Clarity Clear Clear Urine pH 7.0 5.0-9.0 Urine Specific [place] 1.014 1.001-1.035 Urine Protein 2+ H Negative Urine Ketones Trace Negative Urine Blood 1+ H Negative /uL Urine Nitrite Negative Negative Urine Bilirubin Negative Negative Urine Urobilinogen Normal Negative mg/dL Urine Leukocyte Esterase Negative Negative /uL Urine RBC 3 0 - 4 /hpf Urine Microscopic WBC 1 0-5 /HPF Urine Squamous Epithelial Cells None seen <5 /hpf Urine Bacteria None seen None Seen /hpf Urine Glucose 4+ H Normal mg/dL Urine Opiates Screen Neg NEGATIVE Urine Fentanyl Screen Neg NEGATIVE Urine Barbiturates Screen Neg NEGATIVE Urine Phencyclidine Screen Neg NEGATIVE Urine Amphetamines Screen Neg NEGATIVE Urine Benzodiazepines Screen Neg NEGATIVE Urine Cocaine Screen Neg NEGATIVE Urine Cannabinoids Screen Neg NEGATIVE Microbiology Date/Time Source Procedure Growth Status 01/12/25 11:44 Blood Blood Culture - Preliminary NO GROWTH AFTER 24 HOURS OF INCUBATION. Resulted Assessment 54-year-old with a history of hyperglycemia diabetes history of Crohn's disease with complaints of abdominal pain nausea vomiting and high blood sugars. Patient has had history of Crohn's with multiple surgeries in the past with for fistula. He has patient is on Humira for Crohn's at this time. Physical examination is unremarkable basically with a with a except for some minimal tenderness in the epigastric area no rigidity no guarding no masses Labs are unremarkable lipase is normal Clinical impression is diabetes possible gastroenteritis history of Crohn's patient has no major symptoms with Crohn's at this time Plan/Recommendation Continue Humira Symptomatic treatment for the gastritis with PPIs Zofran etc. Case symptoms persist may need further evaluation Thank you Dr. Banegas Plan discussed with: Patient RODERICK BANEGAS MD Jan 13, 2025 18:46
[2025-01-13] MEDS: INSULIN LANTUS (GLARGINE) 1 /0.01ml (100units/ml) SC SCH (21:17)
[2025-01-14] VITALS (8 sets, daily range): BP systolic 122–153; BP diastolic 62–85; PULSE 77–101; RESP 15–19; TEMP 97.6–98.1; O2SAT 93–98
[2025-01-14 05:42] LABS: Basophils # (auto) 0 10 ^3/uL (0-0.2); Basophils % (auto) 0.6 % (0.0-2.0); Eosinophils # (auto) 0.1 10 ^3/uL (0-0.8); Eosinophils % (auto) 2.5 % (0.0-7.0); Hematocrit 38.6 % (36.0-46.0); Hemoglobin 12.8 g/dL (12.2-16.2); Lymphocytes # (auto) 1.9 10 ^3/uL (0.4-5.4); Mean Corpuscular Hemoglobin 29.4 pg (28.0-32.0); Mean Corpuscular Hgb Conc. 33.2 g/dL (32.0-36.0); Mean Corpuscular Volume 88.5 fL (80.0-100.0); Monocytes # (auto) 0.6 10 ^3/uL (0-1.3); Monocytes % (auto) 10.3 % (0.0-12.0); Neutrophils # (auto) 3.2 10 ^3/uL (1.6-8.6); Neutrophils % (auto) 53.6 % (37.0-80.0); Platelet Count (auto) 283 10^3/uL (140-450); Red Blood Cells 4.36 10^6/uL (4.0-5.20); Red Cell Distribution Width 14.1 % (11.8-14.3); White Blood Cell 5.9 10^3/uL (4.4-10.8)
[2025-01-14 05:57] LABS: Alanine Aminotransferase 14 U/L (7-40); Albumin 3.5 g/dL (3.2-4.8); Alkaline Phosphatase 114 U/L (46-116); Anion Gap 11 (5-15); BUN/Creatinine Ratio 15.2 (10.0-20.0); Blood Urea Nitrogen 19 mg/dL (9-23); Carbon Dioxide 29 mmol/L (20-31); Chloride 101 mmol/L (98-107); Glucose 90 mg/dL (74-106); Sodium 141 mmol/L (136-145); Total Protein 6.3 g/dL (5.7-8.2)
[2025-01-14 05:58] LABS: Bilirubin, Total 0.5 mg/dL (0.2-1.0)
[2025-01-14 06:07] LABS: Potassium 3.4 mmol/L (3.5-5.1)
[2025-01-14 06:33] LABS: Aspartate Aminotransferase 19 U/L (13-40)
--- NOTE | 2025-01-14 10:30 | DVHINCON2 ---
Date of service: Jan 14, [address] Danielson Reason for Consultation Seizure History of Present Illness Ms. Wright is a 54 years old female with a history of hypertension, diabetes, gastric paresis, stroke, obesity, she was admitted to the [facility] on 01/12/2025 with a chief company of hypoglycemia. At that time, she was she was received morphine and is very sleepy, though she was my questions, and she was oriented x3, but she can hardly keeps her eyes open. No family is available for the history She tells me she has had seizure disorder for blurry years, but she does not have seizure all the time. Today, she had at least two seizures. It was not clear what she was on at home for seizure control, in the hospital, she was on Keppra 500 mg b.i.d. He was tells me she was a lot of pain in her body I was called to see the patient on 01/14/2025 around 10:20 am for seizure activity. According to her nurse, residents and other medical staff, she had a seizure where she was shaking all over body for 6 minutes with eyes closed, along with desaturation, I stepped into her room right after the the seizure stopped and she was s able to answer my questions properly, she was oriented to person, place, she knew year and the month, she also told me that she needed two doses of Ativan for seizure activity. I did not think this attack was epileptic in nature [phone], the call can not be completed at this time Urinalysis, 01/12/2025: WBC: 1, urine leukocyte esterase: Negative UDS, 01/12/2025: Negative CBC, 01/14/2025: Unremarkable CMP, 01/14/2025: Unremarkable HCO3, 01/12/2025: 24 Anion gap, 01/12/2025: 10 Glucose, 01/12/2025: Four [place] twenty-eight, 409, 01/13/2025: 384, 416 HGB A1c, : 30.2 Beta hydroxide beauty uric acid, 01/12/25: 1.309 TG/HDL/LDL/HDL, 01/12/2025: 226/289/120/52 TSH, 01/14/2025: 2.46 CT head, 12/06/2024: No acute intracranial abnormality. Past Medical History Hypertension, diabetes, gastric paresis, stroke, obesity Past Surgical History Cholecystectomy Family History: Patient reports no known family medical history. Family History Reviewed,noncontributory to illness, Unknown Social History Smoker: Non-Smoker Alcohol: Denies ETOH Use Drugs: Denies Drug Use Lives In: Home Allergies: Coded Allergies: Acetaminophen (Verified Allergy, Unknown, 10/20/19) Hydrocodone (Verified Allergy, Unknown, 10/20/19) Metformin (Verified Allergy, Unknown, 10/20/19) Penicillins (Verified Allergy, Unknown, 10/20/19) Home Meds Active Scripts Cefdinir (Cefdinir) 300 Mg Cap, 1 CAP PO BID for 7 Days, #14 CAP Prov:AMOS PEREZ MD 12/05/24 Current Medications Current Medications Medications (Trade) Dose Ordered Sig/Gordon Route PRN Reason Start Time Stop Time Status Last Admin Atorvastatin Calcium (Lipitor) 40 mg HS PO 01/13/25 22:00 01/13/25 21:15 Insulin Glargine (Lantus) 50 units HS SC 01/13/25 22:00 01/13/25 21:17 Diagnostic Test (Pha) (Accu-Chek Comfort Curve T) 1 strip ACHS 01/13/25 17:00 01/14/25 06:27 Insulin Human Regular (InsuLIN R) HS SC 01/13/25 22:00 01/13/25 21:19 Insulin Human Regular (InsuLIN R) AC SC 01/13/25 17:00 01/13/25 18:21 Dextrose 50 ml UD PRN IV Blood Sugar LESS THAN 60 01/13/25 11:45 Metoclopramide HCl (Reglan Tablet) 5 mg ACHS PO 01/13/25 17:00 01/13/25 15:56 DC Metoclopramide HCl (Reglan Injection) 10 mg Q8HR IV 01/13/25 17:00 01/14/25 06:28 Diphenhydramine HCl (Benadryl Capsule) 25 mg Q8HP PRN PO FOR ITCHING 01/13/25 16:15 01/14/25 06:27 Review of Systems Unobtainable Vital Signs Vital Signs Date Time Temp Pulse Resp B/P (MAP) Pulse Ox O2 Delivery O2 Flow Rate FiO2 01/14/25 08:54 131/71 01/14/25 07:50 16 Nasal Cannula* 2 28 01/14/25 05:33 89 01/14/25 05:00 97.6 93 97.6 Physical Exam GENERAL EXAM: (based on PE in the morning) General: the patient is well developed and nourished. No acute distress. HEENT: Normocephalic, neck is supple, no carotid bruits. No mass. RESPIRATORY: Normal respiratory effort with symmetrical lung expansion. Lungs clear to auscultation. CARDIOVASCULAR: Regular rate and rhythm with no murmurs. S1, S2. ABDOMEN: Soft, nontender, normal bowel sound NEUROLOGICAL: MENTAL STATUS: Awake and alert. Oriented to person, place, time and general circumstances. SPEECH, LANGUAGE, HIGHER CORTICAL FUNCTION: no aphasia or dysathria. CRANIAL NERVES: #2: Intact visual kelley to confrontation. The optic discs were sharp. #3,4,6: Pupils are equal, round and reactive. EOMs full and conjugate. No nystagmus. #5: Facial sensation intact in all three divisions bilaterally. Mandibular strength intact. #7: Facial muscles symmetrical and strength intact. #8: Hearing grossly normal to voice. #9,10: Uvula and soft palate rise in the midline. Swallow and voice are normal. #11: Trapezius and sternomastoid strength intact bilaterally. #12: Tongue midline. No fasciculations or atrophy. SENSATION: Sensation to touch and pinprick is normal. MOTOR: Normal tone in the upper and lower extremity. Normal muscle bulk. No fasciculations. No abnormal movements or posturing. He was the arms and legs REFLEXES: Deep tendon reflexes are symmetrical. No pathological reflexes. CEREBELLAR/COORDINATION: Deferred. GAIT/STATION: deferred. Labs/Diagnostic Data Labs Test 01/14/25 06:24 01/14/25 05:16 01/12/25 20:32 01/12/25 11:40 Range/Units POC Glucose 105 70-106 mg/dl White Blood Count 5.9 # 4.4-10.8 10^3/uL Red Blood Count 4.36 4.0-5.20 10^6/uL Hemoglobin 12.8 12.2-16.2 g/dL Hematocrit 38.6 36.0-46.0 % Mean Corpuscular Volume 88.5 80.0-100.0 fL Mean Corpuscular Hemoglobin 29.4 28.0-32.0 pg Mean Corpuscular Hemoglobin Concent 33.2 32.0-36.0 g/dL Red Cell Distribution Width 14.1 11.8-14.3 % Platelet Count 283 140-450 10^3/uL Mean Platelet Volume 8.4 6.9-10.8 fL Neutrophils (%) (Auto) 53.6 37.0-80.0 % Lymphocytes (%) (Auto) 33.0 10.0-50.0 % Monocytes (%) (Auto) 10.3 0.0-12.0 % Eosinophils (%) (Auto) 2.5 0.0-7.0 % Basophils (%) (Auto) 0.6 0.0-2.0 % Neutrophils # (Auto) 3.2 1.6-8.6 10 ^3/uL Lymphocytes # (Auto) 1.9 0.4-5.4 10 ^3/uL Monocytes # (Auto) 0.6 0-1.3 10 ^3/uL Eosinophils # (Auto) 0.1 0-0.8 10 ^3/uL Basophils # (Auto) 0 0-0.2 10 ^3/uL Nucleated Red Blood Cells 0.0 % Sodium Level 141 136-145 mmol/L Potassium Level 3.4 L 3.5-5.1 mmol/L Chloride Level 101 98-107 mmol/L Carbon Dioxide Level 29 20-31 mmol/L Anion Gap 11 5-15 Blood Urea Nitrogen 19 9-23 mg/dL Creatinine 1.25 H 0.550-1.02 mg/dL Glomerular Filtration Rate Calc 51 >90 mL/min BUN/Creatinine Ratio 15.2 10.0-20.0 Serum Glucose 90 74-106 mg/dL Calcium Level 9.0 8.7-10.4 mg/dL Total Bilirubin 0.5 0.2-1.0 mg/dL Aspartate Amino Transferase (AST) 19 13-40 U/L Alanine Aminotransferase (ALT) 14 7-40 U/L Alkaline Phosphatase 114 46-116 U/L Total Protein 6.3 5.7-8.2 g/dL Albumin 3.5 3.2-4.8 g/dL Thyroid Stimulating Hormone (TSH) 2.46 0.55-4.78 uIU/mL Troponin I High Sensitivity 32 </=34 ng/L Triglycerides Level 226 H < 150 mg/dL Cholesterol Level 289 H < 200 mg/dL LDL Cholesterol 199 H < 100 mg/dL HDL Cholesterol 52 40-59 mg/dL Lipase 39 12-53 U/L Hemoglobin A1c 10.2 H <5.7 % A1C Lactic Acid Level 1.3 0.4-2.0 mmol/L Beta-Hydroxybutyric Acid 1.309 H < 0.4 mmol/L Test 01/12/25 11:22 Range/Units Urine Color Light-yellow Yellow Urine Clarity Clear Clear Urine pH 7.0 5.0-9.0 Urine Specific [place] 1.014 1.001-1.035 Urine Protein 2+ H Negative Urine Ketones Trace Negative Urine Blood 1+ H Negative /uL Urine Nitrite Negative Negative Urine Bilirubin Negative Negative Urine Urobilinogen Normal Negative mg/dL Urine Leukocyte Esterase Negative Negative /uL Urine RBC 3 0 - 4 /hpf Urine Microscopic WBC 1 0-5 /HPF Urine Squamous Epithelial Cells None seen <5 /hpf Urine Bacteria None seen None Seen /hpf Urine Glucose 4+ H Normal mg/dL Urine Opiates Screen Neg NEGATIVE Urine Fentanyl Screen Neg NEGATIVE Urine Barbiturates Screen Neg NEGATIVE Urine Phencyclidine Screen Neg NEGATIVE Urine Amphetamines Screen Neg NEGATIVE Urine Benzodiazepines Screen Neg NEGATIVE Urine Cocaine Screen Neg NEGATIVE Urine Cannabinoids Screen Neg NEGATIVE Microbiology Date/Time Source Procedure Growth Status 01/12/25 11:44 Blood Blood Culture - Preliminary NO GROWTH AFTER 24 HOURS OF INCUBATION. Resulted Assessment Grand mal seizure Epileptic seizure Psychogenic seizure, a least the one started at 01/14/25 10:15am was non- epileptic Status epilepticus Plan/Recommendation Monitoring Supportive treatment EEG Telemetry Keppra 500 mg b.i.d. Ativan for seizure breakthrough More recommendation per clinical Prognosis: Poor Long time spent with her today This medical document was created using an electronic medical record system with [employer] dictation system. Although this document has been carefully reviewed, there may still be some phonetic and typographical errors. These areas are purely typographical due to imperfections of the software programs, and do not reflect any compromise in the patient's medical care. Plan discussed with: Patient, Other MELINA AYERS MD Jan 14, 2025 10:30
--- NOTE | 2025-01-14 11:11 | RESUS ---
CODE ASSIST ASSESSSMENT Initial Information Code Assist Date: Jan 14, 2025 Code Assist Time: 10:09 Location of Arrest: [facility] Room # 244-[address] Marr Time Notified: 10:15 Time PMD returned call: 10:17 Crash Cart Opened and Supplies: No Situation Staff concerned/worried, speci: SaO2 <90, Seizures, Failure to respond to Tx Situation comment: Per primary nurse Durga ROSARIO, patient c/o abdominal pain and upon checking on patient she began having seizure-like activity. He medicated patient with Ativan 1mg IVP x1 prn order with no response. She continued with seizure-like activity for approximately 6 minutes. Her seizure-like activity immediately stopped upon repeat dose of Ativan 1mg IVP x1. Dr Marr was present and was able to witness seizure-like activity and further evaluated patient. Background Background: Patient with known history of seizures. Assessment Blood Pressure Systolic: 115 Blood Pressure Diastolic: 86 Respiratory Rate: 16 O2 Sat by Pulse Oximetry: 93 Bedside Blood Glucose: 222 Recommendations/Interventions Medications and Responses : Medication Time: 10:10 ADULT Medications Given: Ativan 1 mg IV MRx1 Route of Administration: IV Medication Comment: Repeated- 1015 Ativan 1mg IVP Heart Rate: 89 Procedures: Accu check, O2 Mask/NC (6L via N/C) Outcome Outcome: Problem Resolved Follow up Report Follow up Report Upon 2nd dose of Ativan 1mg IVP, patient stopped having seizure-like activity and immediately became responsive. Able to answer questions and follow commands. O2 decreased to 3L via N/C with O2sat 100%. Team Members Team Members Dr. Braxton (resident), Dr. Sears (resident), Dr. Marr (neurologist) Durga ROSARIO, Michelle ICU Charge, Leslie ROSARIO- resource, RT, Mary Mcintyre RN House Sup. Mary Price Jan 14, 2025 11:11
--- NOTE | 2025-01-14 11:57 | DVHPN2 ---
Progress Note Date Seen: Jan 14, 2025 Medical Necessity Reason Pt with a Central, PICC or Fol: No Subjective Patient reports: No new complaints Review of Systems: HEENT:Normal, CVS:Normal, RESPIRATORY:Normal, GI:Normal, :Normal, MSK:Normal, NEURO:Normal Objective vital signs Vital Sign Date Time Temp Pulse Resp B/P (MAP) Pulse Ox O2 Delivery O2 Flow Rate FiO2 01/14/25 11:11 89 01/14/25 08:54 131/71 01/14/25 07:50 16 Nasal Cannula* 2 28 01/14/25 05:00 93 Total Intake and Output 01/13/25 01/13/25 01/14/25 15:00 23:00 07:00 Intake Total 400 ml 1755 ml 1450 ml Output Total 1375 ml 150 ml Balance 400 ml 380 ml 1300 ml medications Current Medications Medications Dose Ordered Sig/Gordon Route Start Time Stop Time Status Last Admin Dose Admin Aspirin 81 mg DAILY PO 01/13/25 10:00 01/14/25 08:54 81 MG Pantoprazole Sodium 40 mg DAILY@0600 PO 01/13/25 06:00 01/14/25 06:27 40 MG Amlodipine Besylate 10 mg DAILY PO 01/13/25 10:00 01/14/25 08:54 10 MG Temazepam 15 mg QHSP PRN PO 01/12/25 19:15 Ondansetron HCl 4 mg Q4HP PRN IV 01/12/25 19:15 01/14/25 04:58 4 MG Nitroglycerin 0.4 mg Q5MINP PRN SL 01/12/25 19:15 Morphine Sulfate 2 mg Q30M PRN IV 01/12/25 19:15 Levetiracetam 500 mg BID PO 01/12/25 22:00 01/14/25 08:54 500 MG Morphine Sulfate 2 mg Q6HPRN PRN IV 01/12/25 22:00 01/14/25 05:03 2 MG Lorazepam 1 mg Q5MINP PRN IV 01/13/25 04:15 01/14/25 10:15 1 MG Atorvastatin Calcium 40 mg HS PO 01/13/25 22:00 01/13/25 21:15 40 MG Insulin Glargine 50 units HS SC 01/13/25 22:00 01/13/25 21:17 50 UNITS Diagnostic Test (Pha) 1 strip ACHS 01/13/25 17:00 01/14/25 11:07 1 STRIP Insulin Human Regular HS SC 01/13/25 22:00 01/13/25 21:19 8 UNITS Insulin Human Regular AC SC 01/13/25 17:00 01/14/25 11:09 6 UNITS Dextrose 50 ml UD PRN IV 01/13/25 11:45 Metoclopramide HCl 10 mg Q8HR IV 01/13/25 17:00 01/14/25 06:28 10 MG Diphenhydramine HCl 25 mg Q8HP PRN PO 01/13/25 16:15 01/14/25 06:27 25 MG Examination: GENERAL:Normal, HEENT:Normal, NECK:Normal, LUNGS:Normal, CVS:Normal, ABDOMEN:Normal, MSK:Normal, SKIN:Normal, NEURO:Normal, :Normal laboratory and microbiology Laboratory Tests 01/14/25 05:16 Test 01/14/25 05:16 Range/Units Serum Glucose 90 74-106 mg/dL Microbiology Date/Time Source Procedure Growth Status 01/12/25 11:44 Blood Blood Culture - Preliminary NO GROWTH AFTER 48 HOURS OF INCUBATION. 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
[2025-01-14] MEDS: FUROSEMIDE 20 MG/2 ML VIAL IV ONE (12:30)
[2025-01-14] MEDS: POTASSIUM CHL 20 Meq TABLET PO ONE (12:30)
[2025-01-14] MEDS: MORPHINE SULFATE 4 MG/ML SYR/VIAL IV PRN (19:59)
[2025-01-15] VITALS (8 sets, daily range): BP systolic 122–170; BP diastolic 70–102; PULSE 79–96; RESP 17–19; TEMP 97.4–98.4; O2SAT 91–96
[2025-01-15 07:09] LABS: Anion Gap 9 (5-15); Carbon Dioxide 28 mmol/L (20-31); Chloride 103 mmol/L (98-107); Potassium 3.6 mmol/L (3.5-5.1); Sodium 140 mmol/L (136-145)
[2025-01-15 07:10] LABS: Calcium 9.3 mg/dL (8.7-10.4)
[2025-01-15 07:15] LABS: BUN/Creatinine Ratio 12.1 (10.0-20.0); Blood Urea Nitrogen 14 mg/dL (9-23); Glucose 167 mg/dL (74-106)
--- NOTE | 2025-01-15 15:34 | DVHPN2 ---
Progress Note Date Seen: Jan 15, 2025 Medical Necessity Reason Pt with a Central, PICC or Fol: No Subjective Patient reports: No new complaints Review of Systems: HEENT:Normal, CVS:Normal, RESPIRATORY:Normal, GI:Normal, :Normal, MSK:Normal, NEURO:Normal Objective vital signs Vital Sign Date Time Temp Pulse Resp B/P (MAP) Pulse Ox O2 Delivery O2 Flow Rate FiO2 01/15/25 13:00 98.3 79 17 139/79 (99) 96 98.3 01/14/25 20:00 Room Air* 0 21 Total Intake and Output 01/14/25 01/14/25 01/15/25 15:00 23:00 07:00 Intake Total 780 ml Output Total 500 ml Balance 280 ml medications Current Medications Medications Dose Ordered Sig/Gordon Route Start Time Stop Time Status Last Admin Dose Admin Aspirin 81 mg DAILY PO 01/13/25 10:00 01/14/25 08:54 81 MG Pantoprazole Sodium 40 mg DAILY@0600 PO 01/13/25 06:00 01/14/25 06:27 40 MG Amlodipine Besylate 10 mg DAILY PO 01/13/25 10:00 01/15/25 09:25 10 MG Temazepam 15 mg QHSP PRN PO 01/12/25 19:15 Ondansetron HCl 4 mg Q4HP PRN IV 01/12/25 19:15 01/15/25 09:26 4 MG Nitroglycerin 0.4 mg Q5MINP PRN SL 01/12/25 19:15 Morphine Sulfate 2 mg Q30M PRN IV 01/12/25 19:15 Levetiracetam 500 mg BID PO 01/12/25 22:00 01/15/25 09:24 500 MG Lorazepam 1 mg Q5MINP PRN IV 01/13/25 04:15 01/15/25 12:46 1 MG Atorvastatin Calcium 40 mg HS PO 01/13/25 22:00 01/14/25 21:52 40 MG Insulin Glargine 50 units HS SC 01/13/25 22:00 01/13/25 21:17 50 UNITS Diagnostic Test (Pha) 1 strip ACHS 01/13/25 17:00 01/15/25 12:08 1 STRIP Insulin Human Regular HS SC 01/13/25 22:00 01/14/25 21:49 3 UNITS Insulin Human Regular AC SC 01/13/25 17:00 01/15/25 12:13 6 UNITS Dextrose 50 ml UD PRN IV 01/13/25 11:45 Metoclopramide HCl 10 mg Q8HR IV 01/13/25 17:00 01/15/25 13:55 10 MG Diphenhydramine HCl 25 mg Q8HP PRN PO 01/13/25 16:15 01/14/25 06:27 25 MG Morphine Sulfate 2 mg Q4HPRN PRN IV 01/14/25 17:30 01/15/25 09:26 2 MG Examination: GENERAL:Normal, HEENT:Normal, NECK:Normal, LUNGS:Normal, CVS:Normal, ABDOMEN:Normal, MSK:Normal, SKIN:Normal, NEURO:Normal, :Normal laboratory and microbiology Laboratory Tests 01/15/25 06:07 01/14/25 05:16 Test 01/15/25 06:07 Range/Units Serum Glucose 167 H 74-106 mg/dL Microbiology Date/Time Source Procedure Growth Status 01/12/25 11:44 Blood Blood Culture - Preliminary NO GROWTH AFTER 72 HOURS OF INCUBATION. 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
--- NOTE | 2025-01-15 16:42 | DVHDS2 ---
Discharge Summary Date of Admission Jan 12, 2025 at 19:01 Date of Discharge: Jan 15, 2025 Labs/Diagnostic Data: Laboratory Results Test 01/15/25 06:07 01/14/25 16:19 01/14/25 05:16 01/12/25 20:32 Sodium Level 140 mmol/L (136-145) Potassium Level 3.6 mmol/L (3.5-5.1) Chloride Level 103 mmol/L (98-107) Carbon Dioxide Level 28 mmol/L (20-31) Anion Gap 9 (5-15) Blood Urea Nitrogen 14 mg/dL (9-23) Creatinine 1.16 mg/dL (0.550-1.02) Glomerular Filtration Rate Calc 56 mL/min (>90) BUN/Creatinine Ratio 12.1 (10.0-20.0) Serum Glucose 167 mg/dL (74-106) Calcium Level 9.3 mg/dL (8.7-10.4) POC Glucose 221 mg/dl (70-106) White Blood Count 5.9 10^3/uL (4.4-10.8) Red Blood Count 4.36 10^6/uL (4.0-5.20) Hemoglobin 12.8 g/dL (12.2-16.2) Hematocrit 38.6 % (36.0-46.0) Mean Corpuscular Volume 88.5 fL (80.0-100.0) Mean Corpuscular Hemoglobin 29.4 pg (28.0-32.0) Mean Corpuscular Hemoglobin Concent 33.2 g/dL (32.0-36.0) Red Cell Distribution Width 14.1 % (11.8-14.3) Platelet Count 283 10^3/uL (140-450) Mean Platelet Volume 8.4 fL (6.9-10.8) Neutrophils (%) (Auto) 53.6 % (37.0-80.0) Lymphocytes (%) (Auto) 33.0 % (10.0-50.0) Monocytes (%) (Auto) 10.3 % (0.0-12.0) Eosinophils (%) (Auto) 2.5 % (0.0-7.0) Basophils (%) (Auto) 0.6 % (0.0-2.0) Neutrophils # (Auto) 3.2 10 ^3/uL (1.6-8.6) Lymphocytes # (Auto) 1.9 10 ^3/uL (0.4-5.4) Monocytes # (Auto) 0.6 10 ^3/uL (0-1.3) Eosinophils # (Auto) 0.1 10 ^3/uL (0-0.8) Basophils # (Auto) 0 10 ^3/uL (0-0.2) Nucleated Red Blood Cells 0.0 % Total Bilirubin 0.5 mg/dL (0.2-1.0) Aspartate Amino Transferase (AST) 19 U/L (13-40) Alanine Aminotransferase (ALT) 14 U/L (7-40) Alkaline Phosphatase 114 U/L (46-116) Total Protein 6.3 g/dL (5.7-8.2) Albumin 3.5 g/dL (3.2-4.8) Thyroid Stimulating Hormone (TSH) 2.46 uIU/mL (0.55-4.78) Troponin I High Sensitivity 32 ng/L (</=34) Triglycerides Level 226 mg/dL (< 150) Cholesterol Level 289 mg/dL (< 200) LDL Cholesterol 199 mg/dL (< 100) HDL Cholesterol 52 mg/dL (40-59) Lipase 39 U/L (12-53) Test 01/12/25 11:40 01/12/25 11:22 Hemoglobin A1c 10.2 % A1C (<5.7) Lactic Acid Level 1.3 mmol/L (0.4-2.0) Beta-Hydroxybutyric Acid 1.309 mmol/L (< 0.4) Urine Color Light-yellow (Yellow) Urine Clarity Clear (Clear) Urine pH 7.0 (5.0-9.0) Urine Specific [place] 1.014 (1.001-1.035) Urine Protein 2+ (Negative) Urine Ketones Trace (Negative) Urine Blood 1+ /uL (Negative) Urine Nitrite Negative (Negative) Urine Bilirubin Negative (Negative) Urine Urobilinogen Normal mg/dL (Negative) Urine Leukocyte Esterase Negative /uL (Negative) Urine RBC 3 /hpf (0 - 4) Urine Microscopic WBC 1 /HPF (0-5) Urine Squamous Epithelial Cells None seen /hpf (<5) Urine Bacteria None seen /hpf (None Seen) Urine Glucose 4+ mg/dL (Normal) Urine Opiates Screen Neg (NEGATIVE) Urine Fentanyl Screen Neg (NEGATIVE) Urine Barbiturates Screen Neg (NEGATIVE) Urine Phencyclidine Screen Neg (NEGATIVE) Urine Amphetamines Screen Neg (NEGATIVE) Urine Benzodiazepines Screen Neg (NEGATIVE) Urine Cocaine Screen Neg (NEGATIVE) Urine Cannabinoids Screen Neg (NEGATIVE) Other Laboratory Tests 01/15/25 06:07 01/14/25 05:16 Brief Hx & Hospital Course: see dictated note Condition at Discharge: Fair Final Diagnosis/Problems List seizures Discharge Disposition: Acute Care Facility Discharge Instruct/Medications Diet: Consistent carbohydrate Activity: No Restrictions, As Tolerated Follow Up/Referral: fu with homer Medications: per oct Discharge Statement: "Patient was advised to return to the ER or call 911 if any headaches, dizziness, shortness of breath, chest pain, abdominal pain, bleeding, fevers, or worsening of medical condition. Patient was counseled about treatment plan, medications, possible side effects, patientverbalized understanding. All questions were answered to the best of my ability. This discharge took greater then 30 minutes in planning, reviewing documentation, counseling the patient, and discussing with other team members." ASSESSMENT ASSESSMENT Assessment seizures Date of Service: Jan 15, 2025 Billing Provider: RAYMUNDO LYNCH MD Common Visit Codes: [id number] DISCH DAY >30min RAYMUNDO LYNCH MD Jan 15, 2025 16:42
--- NOTE | 2025-01-15 17:11 | DVHDS ---
DATE OF DISCHARGE: 01/15/2025 TRANSFER SUMMARY HISTORY OF PRESENT ILLNESS: The patient is a 54-year-old lady who was admitted with a history of chest pain and nausea and abdominal pain. She has a history of diabetes, hypertension, seizure disorder, chronic kidney disease, and cyclical vomiting. HOSPITAL COURSE: The patient had an echocardiogram that showed ejection fraction of 55% to 60%. The patient was seen in Neurology consult by Dr. Marr. Blood cultures were negative. The patient was also seen in GI consult by Dr. Rizvi. The patient had evidence of chronic kidney disease and elevated blood sugars as high as 468. LDL was 199. Tox screen was negative. The patient is now being transferred to [place] for further management. FINAL DIAGNOSES: * Persistent vomiting with questionable gastroparesis, questionable cyclical vomiting. * Multiple uncontrolled seizures. * Uncontrolled diabetes mellitus. * Hypertension. * Questionable [id number] diastolic heart failure. * CKD stage 2/3. * Hyperlipidemia. * Obesity. * Hepatic steatosis. Time spent in discharge planning, review of plan with the patient and nursing and paper work was 39 minutes. MD DI Brown/EKT TID: [id number] RECEIPT: [id number]
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
[2025-01-16 05:00] VITALS: BP 108/78; PULSE 76; RESP 17; TEMP 97.9; O2SAT 95
[2025-01-16 08:30] VITALS: PULSE 79
[2025-01-16 08:49] VITALS: BP 141/81; PULSE 87; RESP 19; TEMP 98.1; O2SAT 93
--- NOTE | 2025-01-16 09:46 | DVHPN2 ---
Progress Note - Dictate Date Seen: Jan 16, 2025 Medical Necessity Reason Pt with a Central, PICC or Fol: No Subjective Ms. Wright is a 54 years old female with a history of hypertension, diabetes, gastric paresis, stroke, obesity, she was admitted to the [facility] on 01/12/2025 with a chief company of hypoglycemia. I have seen and examined the patient, I have discussed with her nurses, she is doing fine, alert and fully oriented, good social skills, she reports one seizure earlier this morning in that she was shaking bilaterally without loss of consciousness, and was able to maintain a conversation with her nurse, the seizure stopped 2 minutes after she received Ativan Against she voiced not interested in transferred to [place] [place], instead she wants to go home Talked to Urinalysis, 01/12/2025: WBC: 1, urine leukocyte esterase: Negative UDS, 01/12/2025: Negative CBC, 01/14/2025: Unremarkable CMP, 01/14/2025: Unremarkable HCO3, 01/12/2025: 24 Anion gap, 01/12/2025: 10 Glucose, 01/12/2025: Four hundred twenty-eight, 409, 01/13/2025: 384, 416 HGB A1c, : 30.2 Beta hydroxide beauty uric acid, 01/12/25: 1.309 TG/HDL/LDL/HDL, 01/12/2025: 226/289/120/52 TSH, 01/14/2025: 2.46 CT head, 12/06/2024: No acute intracranial abnormal vital signs Vital Sign Date Time Temp Pulse Resp B/P (MAP) Pulse Ox O2 Delivery O2 Flow Rate FiO2 01/16/25 08:49 98.1 87 19 141/81 (101) 93 98.1 01/15/25 20:00 Room Air* 0 21 Total Intake and Output 01/15/25 01/15/25 01/16/25 15:00 23:00 07:00 Intake Total 850 ml 1200 ml Balance 850 ml 1200 ml medications Current Medications Medications Dose Ordered Sig/Gordon Route Start Time Stop Time Status Last Admin Dose Admin Aspirin 81 mg DAILY PO 01/13/25 10:00 01/14/25 08:54 81 MG Pantoprazole Sodium 40 mg DAILY@0600 PO 01/13/25 06:00 01/16/25 06:07 40 MG Amlodipine Besylate 10 mg DAILY PO 01/13/25 10:00 01/15/25 09:25 10 MG Temazepam 15 mg QHSP PRN PO 01/12/25 19:15 Ondansetron HCl 4 mg Q4HP PRN IV 01/12/25 19:15 01/15/25 19:35 4 MG Nitroglycerin 0.4 mg Q5MINP PRN SL 01/12/25 19:15 Morphine Sulfate 2 mg Q30M PRN IV 01/12/25 19:15 Levetiracetam 500 mg BID PO 01/12/25 22:00 01/15/25 21:28 500 MG Lorazepam 1 mg Q5MINP PRN IV 01/13/25 04:15 01/16/25 07:25 1 MG Atorvastatin Calcium 40 mg HS PO 01/13/25 22:00 01/15/25 21:28 40 MG Insulin Glargine 50 units HS SC 01/13/25 22:00 01/15/25 22:32 50 UNITS Diagnostic Test (Pha) 1 strip ACHS 01/13/25 17:00 01/16/25 06:13 1 STRIP Insulin Human Regular HS SC 01/13/25 22:00 01/15/25 22:33 10 UNITS Insulin Human Regular AC SC 01/13/25 17:00 01/16/25 06:15 6 UNITS Dextrose 50 ml UD PRN IV 01/13/25 11:45 Metoclopramide HCl 10 mg Q8HR IV 01/13/25 17:00 01/16/25 06:07 10 MG Diphenhydramine HCl 25 mg Q8HP PRN PO 01/13/25 16:15 01/14/25 06:27 25 MG Morphine Sulfate 2 mg Q4HPRN PRN IV 01/14/25 17:30 01/16/25 06:13 2 MG objective General: the patient is well developed and nourished. No acute distress. MENTAL STATUS: Awake and alert. Oriented to person, place, time and general circumstances. SPEECH, LANGUAGE, HIGHER CORTICAL FUNCTION: no aphasia or dysathria. CRANIAL NERVES: Pupils are equal, round and reactive. EOMs full and conjugate. No nystagmus. Facial sensation intact in all three divisions bilaterally. Mandibular strength intact. Facial muscles symmetrical and strength intact SENSATION: Sensation to touch and pinprick is normal. MOTOR: Normal tone in the upper and lower extremity. Normal muscle bulk. No fasciculations. No abnormal movements or posturing. Muscle power in extremities is 5/5 REFLEXES: Deep tendon reflexes are symmetrical. No pathological reflexes. CEREBELLAR/COORDINATION: Deferred. GAIT/STATION: deferred. laboratory and microbiology Laboratory Tests 01/15/25 06:07 01/14/25 05:16 Test 01/15/25 06:07 Range/Units Serum Glucose 167 H 74-106 mg/dL Problem List Grand mal seizure Epileptic seizure Psychogenic seizure Status epilepticus Assessment/Plan Monitoring Supportive treatment Telemetry Keppra 500 mg b.i.d. Ativan for seizure breakthrough I have discussed with her that not all the seizure-like symptoms are seizure, The patient can be discharged home with [facility] follow-up from a neurologic point of view More recommendation per clinical This medical document was created using an electronic medical record system with [employer] dictation system. Although this document has been carefully reviewed, there may still be some phonetic and typographical errors. These areas are purely typographical due to imperfections of the software programs, and do not reflect any compromise in the patient's medical care. Prognosis poor Dietary Evaluation Review Comments: CCHO-60 mechanical soft diet Expected Outcomes/Goals: Controlled DM, gradual wt loss Plan discussed with: Patient, Other Total Time (mins): 35 MELINA AYERS MD Jan 16, 2025 09:46
--- NOTE | 2025-01-16 10:56 | DVHPN2 ---
Progress Note Date Seen: Jan 16, 2025 Medical Necessity Reason Pt with a Central, PICC or Fol: No Subjective Patient reports: No new complaints Review of Systems: HEENT:Normal, CVS:Normal, RESPIRATORY:Normal, GI:Normal, :Normal, MSK:Normal, NEURO:Normal Objective vital signs Vital Sign Date Time Temp Pulse Resp B/P (MAP) Pulse Ox O2 Delivery O2 Flow Rate FiO2 01/16/25 08:49 98.1 87 19 141/81 (101) 93 98.1 01/15/25 20:00 Room Air* 0 21 Total Intake and Output 01/15/25 01/15/25 01/16/25 15:00 23:00 07:00 Intake Total 850 ml 1200 ml Balance 850 ml 1200 ml medications Current Medications Medications Dose Ordered Sig/Gordon Route Start Time Stop Time Status Last Admin Dose Admin Aspirin 81 mg DAILY PO 01/13/25 10:00 01/14/25 08:54 81 MG Pantoprazole Sodium 40 mg DAILY@0600 PO 01/13/25 06:00 01/16/25 06:07 40 MG Amlodipine Besylate 10 mg DAILY PO 01/13/25 10:00 01/15/25 09:25 10 MG Temazepam 15 mg QHSP PRN PO 01/12/25 19:15 Ondansetron HCl 4 mg Q4HP PRN IV 01/12/25 19:15 01/15/25 19:35 4 MG Nitroglycerin 0.4 mg Q5MINP PRN SL 01/12/25 19:15 Morphine Sulfate 2 mg Q30M PRN IV 01/12/25 19:15 Levetiracetam 500 mg BID PO 01/12/25 22:00 01/15/25 21:28 500 MG Lorazepam 1 mg Q5MINP PRN IV 01/13/25 04:15 01/16/25 07:25 1 MG Atorvastatin Calcium 40 mg HS PO 01/13/25 22:00 01/15/25 21:28 40 MG Insulin Glargine 50 units HS SC 01/13/25 22:00 01/15/25 22:32 50 UNITS Diagnostic Test (Pha) 1 strip ACHS 01/13/25 17:00 01/16/25 06:13 1 STRIP Insulin Human Regular HS SC 01/13/25 22:00 01/15/25 22:33 10 UNITS Insulin Human Regular AC SC 01/13/25 17:00 01/16/25 06:15 6 UNITS Dextrose 50 ml UD PRN IV 01/13/25 11:45 Metoclopramide HCl 10 mg Q8HR IV 01/13/25 17:00 01/16/25 06:07 10 MG Diphenhydramine HCl 25 mg Q8HP PRN PO 01/13/25 16:15 01/14/25 06:27 25 MG Morphine Sulfate 2 mg Q4HPRN PRN IV 01/14/25 17:30 01/16/25 06:13 2 MG Examination: GENERAL:Normal, HEENT:Normal, NECK:Normal, LUNGS:Normal, CVS:Normal, ABDOMEN:Normal, MSK:Normal, SKIN:Normal, NEURO:Normal, :Normal laboratory and microbiology Laboratory Tests 01/15/25 06:07 01/14/25 05:16 Test 01/15/25 06:07 Range/Units Serum Glucose 167 H 74-106 mg/dL Microbiology Date/Time Source Procedure Growth Status 01/12/25 11:44 Blood Blood Culture - Preliminary NO GROWTH AFTER 72 HOURS OF INCUBATION. 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 #7 hyperlipidemia #8 obesity #9 hepatic steatosis dc plan to home today advance care planning- full code- time spent 18 mins Plan discussed with: Patient My Orders My Orders Orders - RAYMUNDO LYNCH MD Procedure Category Date Status Time Mechanical Soft Diet DIET 01/15/25 Transmitted Dinner * Seed Core Operator CONS 01/15/25 Transmitted Consult Discharge DISCHARGE 01/16/25 Transmitted 10:53 Dietary Evaluation Review Comments: CCHO-60 mechanical soft diet Expected Outcomes/Goals: Controlled DM, gradual wt loss Date of Service: Jan 16, 2025 Billing Provider: RAYMUNDO LYNCH MD Common Visit Codes: [id number] INP/OBS CARE(HIGH) RAYMUNDO LYNCH MD Jan 16, 2025 10:56
[2025-01-16 11:50] VITALS: BP 146/83; PULSE 94; RESP 18; TEMP 98; O2SAT 96
== END 2025-01-16 13:12 | disposition home or self-care (01) | DRG 73 ==
LOC: ER 11:05 → OVERFLOW 19:01 → TELE-EAST 23:45
PROVIDERS: ADMIT Internal Medicine; ATTEND Internal Medicine
DX: E11.43 Type 2 diabetes mellitus with diabetic autonomic (poly)neuropathy (principal); I50.43 Acute on chronic combined systolic (congestive) and diastolic (congestive) heart failure; I13.0 Hypertensive heart and chronic kidney disease with heart failure and stage 1 through stage 4 chronic kidney disease, or unspecified chronic kidney disease; N17.9 Acute kidney failure, unspecified; E11.65 Type 2 diabetes mellitus with hyperglycemia; K31.84 Gastroparesis; E11.22 Type 2 diabetes mellitus with diabetic chronic kidney disease; E78.5 Hyperlipidemia, unspecified; E66.9 Obesity, unspecified; K76.0 Fatty (change of) liver, not elsewhere classified; G40.401 Other generalized epilepsy and epileptic syndromes, not intractable, with status epilepticus; N18.30 Chronic kidney disease, stage 3 unspecified; Z88.6 Allergy status to analgesic agent; Z88.5 Allergy status to narcotic agent; Z88.0 Allergy status to penicillin; Z86.73 Personal history of transient ischemic attack (TIA), and cerebral infarction without residual deficits; Z79.899 Other long term (current) drug therapy; Z68.37 Body mass index [BMI] 37.0-37.9, adult; K29.70 Gastritis, unspecified, without bleeding
CPT/HCPCS: 36415; 71045; 74176; 80048; 80053; 80061; 80307; 81001; 82010; 82962; 83036; 83605; 83690; 84443; 84484; 85025; 87040; 93306; 95819; 96365; 96375; 97162; 99291; G0378; J1815; J2405; J3490

== ENCOUNTER 2025-02-01 06:06 | Emergency (ER) | payer OTHER, BC ==
[~2025-02-01] VITALS: Ht 165.1 cm; Wt 104.5 kg
--- NOTE | 2025-02-01 06:31 | ED.PDOC ---
History of Present Illness HPI Comments 54-year-old female with PMHx DM presents with a chief complaint of wound to bottom of her right foot x 1 week. Patient states that she has a "foot blister" that popped and drained yesterday. Patient reports that she went to [facility] and was referred to the ER to rule out Osteomyelitis. Patient denies any drainage from the foot today. Patient is able to ambulate and walk on her foot. Time Seen by MD: 06:17 Primary Care Provider: NACHO Reviewed Notes: Medications, Allergies Allergies: Coded Allergies: Chicken Allergy (Verified Allergy, Mild, 01/15/25) Lactose Intolerance (GI) (Verified Allergy, Mild, 01/15/25) Acetaminophen (Verified Allergy, Unknown, 10/20/19) Hydrocodone (Verified Allergy, Unknown, 10/20/19) Metformin (Verified Allergy, Unknown, 10/20/19) Penicillins (Verified Allergy, Unknown, 10/20/19) Home Meds Active Scripts Cefdinir (Cefdinir) 300 Mg Cap, 1 CAP PO BID for 7 Days, #14 CAP Prov:AMOS PEREZ MD 12/05/24 Information Source: Patient Mode of Arrival: Ambulatory Severity: Moderate Timing: Days Duration: Since onset Prehospital treatment: None Past Medical History PAST MEDICAL HISTORY: DM, Seizures Surgical History: Denies all surgeries MICROBIOLOGY TEACHER History: No Pertinent MICROBIOLOGY TEACHER History Family History Family History: Reviewed,noncontributory to illness, Unknown Social History Smoker: Non-Smoker Alcohol: Denies ETOH Use Drugs: Denies Drug Use Lives In: Home Constitutional: denies: chills, diaphoresis, fatigue, fever, malaise, sweats, weakness, others EENTM: denies: blurred vision, double vision, ear bleeding, ear discharge, ear drainage, ear pain, ear ringing, eye pain, eye redness, hearing loss, mouth pain, mouth swelling, nasal discharge, nose bleeding, nose congestion, nose pain, photophobia, tearing, throat pain, throat swelling, voice changes, others Respiratory: denies: cough, hemoptysis, orthopnea, SOB at rest, shortness of breath, SOB with excertion, stridor, wheezing, others Cardiovascular: denies: chest pain, dizzy spells, diaphoresis, Dyspnea on exertion, edema, irregular heart beat, left arm pain, lightheadedness, palpitations, PND, syncope, others Gastrointestinal: denies: abdomen distended, abdominal pain, blood streaked bowels, constipated, diarrhea, dysphagia, difficulty swallowing, hematemesis, melena, nausea, poor appetite, poor fluid intake, rectal bleeding, rectal pain, vomiting, others Genitourinary: denies: abnormal vagina bleeding, burning, dyspareunia, dysuria, flank pain, frequency, hematuria, incontinence, pain, , vagina discharge, urgency, others Neurological: denies: dizziness, fainting, headache, left sided numbness, left sided weakness, numbness, paresthesia, pre-existing deficit, right sided numbness, right sided weakness, seizure, speech problems, tingling, tremors, weakness, others Musculoskeletal: denies: back pain, gout, joint pain, joint swelling, muscle pain, muscle stiffness, neck pain, others Integumetry: reports: wounds; denies: bruises, change in color, change in hair/nails, dryness, laceration, lesions, lumps, rash, others Allergic/Immunocompromised: denies: Difficulty Healing, Frequent Infections, Hives, Itching, others Hematologic/Lymphatic: denies: anemia, blood clots, easy bleeding, easy bruising, swollen glands, others Endocrine: denies: excessive hunger, excessive sweating, excessive thirst, excessive urination, flushing, intolerance to cold, intolerance to heat, unexplained weight gain, unexplained weight loss, others Psychiatric: denies: anxiety, bipolar disorder, depression, hopeless, panic disorder, schizophrenia, sleepless, suicidal, others All Other Systems: Reviewed and Negative Physical Exam General Appearance: Moderate Distress, Normal HEENT: Normal ENT Inspection, Pharynx Normal, TMs Normal Neck: Full Range of Motion, Non-Tender, Normal, Normal Inspection Respiratory: Chest Non-Tender, Lungs Clear, No Accessory Muscle Use, No Res piratory Distress, Normal Breath Sounds Cardiovascular: No Edema, No JVD, No Murmur, No Gallop, Normal Peripheral Pulses, Regular Rate/Rhythm Breast Exam: Deferred Gastrointestinal: No Organomegaly, Non Tender, No Pulsatile Mass, Normal Bowel Sounds, Soft Genitalia: Deferred Pelvic: Deferred Rectal: Deferred Extremities: No calf tenderness, Normal capillary refill, Normal inspection, Normal range of motion, Non-tender, No pedal edema Musculoskeletal : Apperance: Normal Neurologic: Alert, mixer driver II-XII nml as Tested, No Motor Deficits, Normal Affect, Normal Mood, No Sensory Deficits Cerebellar Function: Normal Reflexes: Normal Skin: Dry, Normal Color, Warm, Wounds (Sole of left foot callus) Peripheral Pulses: 3+ Radial (R), 3+ Radial (L) Lymphatic: No Adenopathy Was a procedure done? Was a procedure done?: No Differential Dx Considerations may include: Diabetic foot X-Ray, Labs, Meds, VS Patient alert. Came in because of the foot wound. Vitals stable. Answering questions. Ambulating. No leg swelling. No shortness a breath. No chest pain. On examination no sign of any sepsis. Wound is clean. No open to the bone. No sign of any osteomyelitis pain No cellulitis. Diabetic foot. Her physician did not cover for anaerobic bacteria. Was given prescription for clindamycin. Was told to continue taking Keflex. Explained to the patient that she will need to soak in has been peroxide keep the foot dry not exposed to dirt. Was told to follow up at [facility] pain Was told to come back if there is any problem. Time of 1ST Reevaluation: 06:47 Reevaluation 1ST: Improved Patient Education/Counseling: Diagnosis, Treatment, Need For Follow Up Family Education/Counseling: No Family Present SEPSIS Sepsis Screen Departure 1 Departure Time of Disposition: 06:39 Impression: Primary Impression: Diabetic foot Disposition: 01 HOME / SELF CARE / HOMELESS Condition: Good e-Prescriptions Clindamycin Hcl (Clindamycin Hcl) 300 Mg Cap 1 CAP PO TID for 10 Days, #30 CAP Prov: ALVARO BROUSSARD MD 02/01/25 Discharged With: Self Critical Care Note Critical Care Time?: No Stability Stability form required: No Heart Score Heart Score: Heart Score Response (Comments) Value History N/A 0 EKG N/A 0 Age N/A 0 Risk Factors N/A 0 Troponin N/A 0 Total 0 I personally scribed for ALVARO BROUSSARD MD ([email or web address]) on 02/01/25 at 06:31. Electronically submitted by Alex Wright ([email or web address]). ALVARO BROUSSARD MD Feb 01, 2025 06:31
[2025-02-01] MEDS ORDERED: CLIN1CAP70 PO (06:39)
[2025-02-01 06:45] VITALS: BP 146/96; PULSE 100; RESP 18; TEMP 98.7; O2SAT 96
[2025-02-01] MEDS: CLINDAMYCIN HCL 150 MG CAP PO ONE (06:48)
== END 2025-02-01 06:56 | disposition home or self-care (01) ==
LOC: ER 06:06
DX: E11.621 Type 2 diabetes mellitus with foot ulcer (principal); L97.519 Non-pressure chronic ulcer of other part of right foot with unspecified severity; Z88.0 Allergy status to penicillin; Z88.5 Allergy status to narcotic agent; Z88.8 Allergy status to other drugs, medicaments and biological substances; X58.XXXA Exposure to other specified factors, initial encounter; Y93.89 Activity, other specified; Y92.89 Other specified places as the place of occurrence of the external cause; Y99.8 Other external cause status

== ENCOUNTER 2025-03-31 08:39 | Inpatient (IN) | payer BC, OTHER ==
[~2025-03-31] VITALS: Ht 167.6 cm; Wt 90.0 kg
[2025-03-31] VITALS (26 sets, daily range): BP systolic 71–144; BP diastolic 41–93; PULSE 67–77; RESP 20; TEMP 98.2–99.5; O2SAT 96–100
[~2025-03-31 08:39] MED LIST changes: +CLIN1CAP70 PO
--- NOTE | 2025-03-31 09:01 | ED.PDOC ---
History of present illness HPI Comments This is a 54 year old female BIB son presenting to the ED with chief complaint of ALOC and hyperglycemia. Son reports that he had noticed his mother not acting herself this morning and she had told him that her blood sugar read in the 500s when she woke up. Son relays that the patient became increasingly more altered as time went on so he brought the patient to the ED for further evaluation. Patient is unable to answer questions at this time, only staring and is only able to be woken up with a sternal rub. Son notes patient normally becomes altered when her blood sugar becomes too high. Son reports patient had a recent wound cleaning to her right foot a month ago. Chief Complaint: Nausea/Vomiting Time Seen by MD: 08:59 Primary Care Provider: NACHO History of present illness: Nurses Notes, Medications, Allergies Allergies: Coded Allergies: Chicken Allergy (Verified Allergy, Mild, 01/15/25) Lactose Intolerance (GI) (Verified Allergy, Mild, 01/15/25) Acetaminophen (Verified Allergy, Unknown, 10/20/19) Hydrocodone (Verified Allergy, Unknown, 10/20/19) Metformin (Verified Allergy, Unknown, 10/20/19) Penicillins (Verified Allergy, Unknown, 10/20/19) Home Meds Active Scripts Clindamycin Hcl (Clindamycin Hcl) 300 Mg Cap, 1 CAP PO TID for 10 Days, #30 CAP Prov:ALVARO BROUSSARD MD 02/01/25 Cefdinir (Cefdinir) 300 Mg Cap, 1 CAP PO BID for 7 Days, #14 CAP Prov:AMOS PEREZ MD 12/05/24 Information Source: Patient, Relative (Child) Mode of Arrival: Wheelchair Timing: Hours Duration: Since onset Prehospital treatment: None [place]: Confusion Symptoms: Confusion History of: Diabetes, Frequent hyperglycemic Associated signs and symptoms: None Past Medical History PAST MEDICAL HISTORY: DM, Seizures Surgical History: Denies all surgeries DRUG AND ALCOHOL COUNSELOR History: No Pertinent DRUG AND ALCOHOL COUNSELOR History Family History Family History: Reviewed,noncontributory to illness, Unknown Social History Smoker: Non-Smoker Alcohol: Denies ETOH Use Drugs: Denies Drug Use Lives In: Home Unable to Obtain due to: Altered Mental Status All Other Systems: Reviewed and Negative Physical Exam General Appearance: Normal, Severe Distress HEENT: Normal ENT Inspection, Pharynx Normal, TMs Normal Neck: Full Range of Motion, Non-Tender, Normal, Normal Inspection Respiratory: Chest Non-Tender, Lungs Clear, No Accessory Muscle Use, No Respiratory Distress, Normal Breath Sounds Cardiovascular: No Edema, No JVD, No Murmur, No Gallop, Normal Peripheral Pulses, Regular Rate/Rhythm Breast Exam: Deferred Gastrointestinal: No Organomegaly, Non Tender, No Pulsatile Mass, Normal Bowel Sounds, Soft Genitalia: Deferred Pelvic: Deferred Rectal: Deferred Extremities: No calf tenderness, Normal capillary refill, Normal inspection, Normal range of motion, Non-tender, No pedal edema Musculoskeletal : Apperance: Normal Neurologic: Disoriented, NOT DONE Cerebellar Function: Unable to Test, NOT DONE Reflexes: NOT DONE Skin: Dry, Normal Color, Warm Peripheral Pulses: 3+ Radial (R), 3+ Radial (L) Lymphatic: No Adenopathy Was a procedure done? 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: Attending Physician Indication: CVP monitoring, Volume resuscitation, Suspected infection Room prepared for procedure: Yes Roofing Laborer performed hand hygien: Yes Maximal sterile barrier precau: Mask/Eye shield, Sterile gown, Cap, Sterlie gloves, Large sterlie drape Skin Preparation: Chlorhexidine gluconate Skin preparation completely dr: Yes Insertion site: Right, Internal jugular Central line catheter type: [id number] dialysis Number of lumens: 3 Central line exchanged over a: No Antiseptic ointment applied to: No Post Assessment: Chest X-Ray, Proper placement Informed consent obtained: Yes Risks/benefits/alt described: Yes Intubation Indication: Altered Mental Status, Airway Protection Prep: Preoxygenation Intubation Approach: Orotracheal Intubation size: cm (8) Informed consent obtained: Yes Risks/benefits/alt described: Yes Notes Used 20mg of Etomidate and 100mg of Rocuronium. Differential Diagnosis (DM) Differential Diagnosis: DKA, Encephalopathy, Hyperglycemia X-Ray, Labs, Meds, VS Vital Signs Date Time Temp Pulse Resp B/P (MAP) Pulse Ox O2 Delivery O2 Flow Rate FiO2 03/31/25 13:00 127/70 03/31/25 12:30 87 21 129/77 (94) 100 03/31/25 12:15 85 20 81/55 (64) 100 03/31/25 12:14 87/48 03/31/25 12:00 86 20 87/48 (61) 100 03/31/25 11:45 85 21 104/84 (91) 100 03/31/25 11:36 113/65 03/31/25 11:30 85 21 104/84 (91) 100 03/31/25 11:15 86 22 100/60 (73) 100 03/31/25 11:00 89 20 113/65 (81) 100 03/31/25 10:45 91 18 77/42 (54) 99 03/31/25 10:30 92 21 127/73 (91) 99 03/31/25 10:15 03/31/25 10:15 91 20 138/86 (103) 99 03/31/25 10:00 95 21 151/99 (116) 98 03/31/25 09:45 93 20 92/55 (67) 97 03/31/25 09:35 Mechanical Ventilator+ 30 30 03/31/25 09:30 93 20 101/58 (72) 97 03/31/25 09:20 171/105 03/31/25 09:20 108 20 171/105 (127) 100 50 03/31/25 09:15 171/105 03/31/25 09:15 94 8 171/105 (127) 97 03/31/25 09:11 93 03/31/25 08:39 98.2 100 18 169/100 96 98.2 Lab Test 03/31/25 11:33 03/31/25 10:05 03/31/25 09:58 03/31/25 09:30 Range/Units Blood Gas Specimen Type Arterial Blood Gas Sample Site Right radial Blood Gas Patient Temperature 37.0 Arterial Blood Date Drawn [id number] Arterial Blood pH 7.405 7.350-7.450 Arterial Blood Partial Pressure CO2 27.5 L 32.0-45.0 mmHg Arterial Blood Partial Pressure O2 149.1 H 83.0-108.0 mmHg Arterial Blood HCO3 16.8 L 21.0-28.0 mmol/L Arterial Blood Oxygen Saturation 98.8 H 94.0-98.0 % Arterial Blood Base Excess -6.4 L -2.0-3.0 mmol/L Arterial Blood Oxyhemoglobin 97.4 94.0-98.0 % Arterial Blood Carboxyhemoglobin 0.9 0.5-1.5 % Arterial Blood Methemoglobin 0.5 0.0-1.5 % Jaren Test Modified Blood Gas Total Hemoglobin 12.90 12.0-16.0 g/dL Blood Gas Set Respiration Rate 20.0 Blood Gas Modality Vent - ac FiO2 % 50.0 Blood Gas Tidal Volume 500.0 Blood Gas PEEP or CPAP 5.0 White Blood Count 8.3 4.4-10.8 10^3/uL Red Blood Count 4.27 4.0-5.20 10^6/uL Hemoglobin 12.3 12.2-16.2 g/dL Hematocrit 37.1 36.0-46.0 % Mean Corpuscular Volume 86.9 80.0-100.0 fL Mean Corpuscular Hemoglobin 28.8 28.0-32.0 pg Mean Corpuscular Hemoglobin Concent 33.2 32.0-36.0 g/dL Red Cell Distribution Width 14.8 H 11.8-14.3 % Platelet Count 215 140-450 10^3/uL Mean Platelet Volume 9.6 6.9-10.8 fL Neutrophils (%) (Auto) 86.9 H 37.0-80.0 % Lymphocytes (%) (Auto) 8.4 L 10.0-50.0 % Monocytes (%) (Auto) 3.9 0.0-12.0 % Eosinophils (%) (Auto) 0.5 0.0-7.0 % Basophils (%) (Auto) 0.3 0.0-2.0 % Neutrophils # (Auto) 7.2 1.6-8.6 10 ^3/uL Lymphocytes # (Auto) 0.7 0.4-5.4 10 ^3/uL Monocytes # (Auto) 0.3 0-1.3 10 ^3/uL Eosinophils # (Auto) 0 0-0.8 10 ^3/uL Basophils # (Auto) 0 0-0.2 10 ^3/uL Nucleated Red Blood Cells 0.1 % Prothrombin Time 10.2 9.3-11.8 sec Prothrombin Time INR 0.96 0.9-1.15 Activated Partial Thromboplast Time 24.7 24.5-34.5 SEC Sodium Level 134 L 136-145 mmol/L Potassium Level 4.3 3.5-5.1 mmol/L Chloride Level 100 98-107 mmol/L Carbon Dioxide Level 24 20-31 mmol/L Anion Gap 10 5-15 Blood Urea Nitrogen 20 9-23 mg/dL Creatinine 1.23 H 0.550-1.02 mg/dL Glomerular Filtration Rate Calc 52 >90 mL/min BUN/Creatinine Ratio 16.3 10.0-20.0 Serum Glucose 531 *H 74-106 mg/dL Calcium Level 9.2 8.7-10.4 mg/dL Total Bilirubin 0.6 0.2-1.0 mg/dL Aspartate Amino Transferase (AST) 21 13-40 U/L Alanine Aminotransferase (ALT) 22 7-40 U/L Alkaline Phosphatase 167 H 46-116 U/L Total Protein 6.5 5.7-8.2 g/dL Albumin 3.7 3.2-4.8 g/dL Beta-Hydroxybutyric Acid Pending Lactic Acid Level 1.2 0.4-2.0 mmol/L Urine Color Colorless Yellow Urine Clarity Clear Clear Urine pH 6.5 5.0-9.0 Urine Specific [place] 1.021 1.001-1.035 Urine Protein 2+ H Negative Urine Ketones 1+ H Negative Urine Blood 1+ H Negative /uL Urine Nitrite Negative Negative Urine Bilirubin Negative Negative Urine Urobilinogen Normal Negative mg/dL Urine Leukocyte Esterase 2+ Negative /uL Urine RBC 2 0 - 4 /hpf Urine Microscopic WBC 57 H 0-5 /HPF Urine Squamous Epithelial Cells None seen <5 /hpf Urine Bacteria None seen None Seen /hpf Urine Yeast (Budding) Few None Seen /hpf Urine Glucose 4+ H Normal mg/dL Current Medications Medications (Trade) Dose Ordered Sig/Gordon Route Start Time Stop Time Status Last Admin Etomidate 20 mg ONCE ONCE IV 03/31/25 09:00 03/31/25 09:01 DC 03/31/25 09:14 Rocuronium [place] 100 mg ONCE ONCE IV 03/31/25 09:00 03/31/25 09:01 DC 03/31/25 09:15 Midazolam HCl 50 ml @ 1 mls/hr Q24H IV 03/31/25 09:00 03/31/25 09:20 Norepinephrine Bitartrate 250 ml @ 3.75 mls/hr Q24H IV 03/31/25 09:00 03/31/25 12:14 Cefepime HCl 50 ml @ 12.5 mls/hr Q8HR IV 03/31/25 14:00 03/31/25 13:39 Sodium Chloride 1,000 ml @ 1,000 mls/hr Q1H ONCE IV 03/31/25 09:15 03/31/25 10:14 DC 03/31/25 10:17 Sodium Chloride 1,000 ml @ 150 mls/hr Q6H40M ONCE IV 03/31/25 09:15 03/31/25 15:54 03/31/25 10:39 Clindamycin Phosphate 50 ml @ 50 mls/hr ONCE ONCE IV 03/31/25 09:15 03/31/25 10:14 DC 03/31/25 10:17 Insulin Human Regular (InsuLIN R) 10 units ONCE ONCE IV 03/31/25 09:45 03/31/25 09:46 DC 03/31/25 10:16 Insulin Human (Reg)/Sodium Chloride 100 ml @ 0.5 mls/hr Q24H IV 03/31/25 10:00 03/31/25 10:15 Diagnostic Test (Pha) (Accu-Chek Comfort Curve T) 1 strip Q90MIN 03/31/25 10:30 03/31/25 13:36 Insulin Glargine (Lantus) 15 units ONCE ONCE SC 03/31/25 10:00 03/31/25 10:01 DC 03/31/25 10:16 Propofol 100 ml @ 3.135 mls/ hr Q24H IV 03/31/25 11:00 03/31/25 11:36 Patient disoriented. Able to answering any questions. Possible DKA. Abdomen is soft. Establish intravenous access. Was given fluids. Sepsis protocol. Has a wound in the right foot. Urinalysis shows UTI. Had to intubate the patient. Central line placed. Explained to the family. Continue monitoring. [place] approved inpatient admission [id number]. Time of 1ST Reevaluation: 09:57 Reevaluation 1ST: Unchanged Patient Education/Counseling: Pt Unresponsive Family Education/Counseling: Diagnosis, Treatment SEPSIS Sepsis Screen Date sepsis recognized/suspect: Mar 31, 2025 Time Sepsis recognized/suspect: 0840 Recent Procedure: No On Antibiotic Therapy: No Respiratory Rate >20: No Heart Rate >90: No Temp<36 C (96.8 F) or >38.3 C: No SBP <90 or MAP <65 mmHG: No New Acute Mental Status Change: No Is the patient on CPAP, BIPAP,: No Physician Orders Midazolam Drip 50 Mg/50ml (Versed Drip 5 (03/31/25 09:00) Rass Sedation Scale Q1HR (03/31/25 08:51) Norepinephrine 8 Mg/250ml Kit (Levophed) (03/31/25 09:00) Chest Portable (03/31/25 09:07) Accucheck (03/31/25 09:07) Blood Culture (03/31/25 09:07) Cefepime 1gm/ 50ml (Maxipime 1gm/50ml) (03/31/25 14:00) Notify Md If Map <65 Or Bp<90 (03/31/25 09:07) If Map<65 Start Vasopressor (03/31/25 09:07) Sepsis Reassesment After Fluid (03/31/25 10:07) Sodium Chloride 0.9% (03/31/25 09:15) Communication Order (03/31/25 09:21) Vent Ip Init (03/31/25 09:15) Respiratory Culture W/ Gs (03/31/25 09:21) Abg W/ Co-Ox (03/31/25 10:15) Head Without Contrast (03/31/25 09:46) Insulin Drip 100 Unit/100ml (Myxredlin 1 (03/31/25 10:00) Glucose Blood (Accu-Chek Comfort Curve T (03/31/25 10:30) D/C All Diabetic Medications (03/31/25 09:46) Insulin Drip Protocol (03/31/25 09:46) Dextrose 50% Syringe (03/31/25 10:00) Propofol (Diprivan) (03/31/25 11:00) Beta-Hydroxybutyrate (03/31/25 13:06) Vital Signs Date Time Temp Pulse Resp B/P (MAP) Pulse Ox O2 Delivery O2 Flow Rate FiO2 03/31/25 13:00 127/70 03/31/25 12:30 87 21 129/77 (94) 100 03/31/25 12:15 85 20 81/55 (64) 100 03/31/25 12:14 87/48 03/31/25 12:00 86 20 87/48 (61) 100 03/31/25 11:45 85 21 104/84 (91) 100 03/31/25 11:36 113/65 03/31/25 11:30 85 21 104/84 (91) 100 03/31/25 11:15 86 22 100/60 (73) 100 03/31/25 11:00 89 20 113/65 (81) 100 03/31/25 10:45 91 18 77/42 (54) 99 03/31/25 10:30 92 21 127/73 (91) 99 03/31/25 10:15 03/31/25 10:15 91 20 138/86 (103) 99 03/31/25 10:00 95 21 151/99 (116) 98 03/31/25 09:45 93 20 92/55 (67) 97 03/31/25 09:35 Mechanical Ventilator+ 30 30 03/31/25 09:30 93 20 101/58 (72) 97 03/31/25 09:20 171/105 03/31/25 09:20 108 20 171/105 (127) 100 50 03/31/25 09:15 171/105 03/31/25 09:15 94 8 171/105 (127) 97 03/31/25 09:11 93 03/31/25 08:39 98.2 100 18 169/100 96 98.2 Laboratory Tests Test 03/31/25 09:58 03/31/25 10:05 Lactic Acid Level 1.2 mmol/L (0.4-2.0) White Blood Count 8.3 10^3/uL (4.4-10.8) Medications Medications Dose Ordered Sig/Gordon Route Start Time Stop Time Status Last Admin Dose Admin Cefepime HCl 50 ml @ 12.5 mls/hr Q8HR IV 03/31/25 14:00 03/31/25 13:39 Clindamycin Phosphate 50 ml @ 50 mls/hr ONCE ONCE IV 03/31/25 09:15 03/31/25 10:14 DC 03/31/25 10:17 Diagnostic Test (Pha) 1 strip Q90MIN 03/31/25 10:30 03/31/25 13:36 Etomidate 20 mg ONCE ONCE IV 03/31/25 09:00 8/25/25 09:01 DC 03/31/25 09:14 Insulin Glargine 15 units ONCE ONCE SC 03/31/25 10:00 03/31/25 10:01 DC 03/31/25 10:16 Insulin Human (Reg)/Sodium Chloride 100 ml @ 0.5 mls/hr Q24H IV 03/31/25 10:00 03/31/25 10:15 Insulin Human Regular 10 units ONCE ONCE IV 03/31/25 09:45 03/31/25 09:46 DC 03/31/25 10:16 Midazolam HCl 50 ml @ 1 mls/hr Q24H IV 03/31/25 09:00 03/31/25 09:20 Norepinephrine Bitartrate 250 ml @ 3.75 mls/hr Q24H IV 03/31/25 09:00 03/31/25 12:14 Propofol 100 ml @ 3.135 mls/ hr Q24H IV 03/31/25 11:00 03/31/25 11:36 Rocuronium [place] 100 mg ONCE ONCE IV 03/31/25 09:00 03/31/25 09:01 DC 03/31/25 09:15 Sodium Chloride 1,000 ml @ 150 mls/hr Q6H40M ONCE IV 03/31/25 09:15 03/31/25 15:54 03/31/25 10:39 Sodium Chloride 1,000 ml @ 1,000 mls/hr Q1H ONCE IV 03/31/25 09:15 03/31/25 10:14 DC 03/31/25 10:17 Departure 1 Departure Time of Disposition: 12:05 Impression: Primary Impression: Acute metabolic encephalopathy Additional Impression: Sepsis, unspecified organism Qualified Codes: A41.9 - Sepsis, unspecified organism Disposition: ADMITTED INPATIENT Admit to: ICU Condition: Guarded Critical Care Note Critical Care Time?: Yes (90 min-critical care time only) Stability Stability form required: No Heart Score Heart Score: Heart Score Response (Comments) Value History Slightly Suspicious 0 EKG Normal 0 Age 45-64 1 Risk Factors >3 or Hx ASHD 2 Troponin Normal limit 0 Total 3 I personally scribed for ALVARO BROUSSARD MD ([email or web address]) on 03/31/25 at 09:01. Electronically submitted by Surinder Mai ([email or web address]). I personally scribed for ALVARO BROUSSARD MD ([email or web address]) on 03/31/25 at 09:32. Electronically submitted by Surinder Mai ([email or web address]). ALVARO BROUSSARD MD Mar 31, 2025 09:01
[2025-03-31] MEDS: ETOMIDATE (2MG/ML) 20ML VIAL IV ONE (09:14)
[2025-03-31] MEDS: ROCURONIUM 10MG/ML 10ML VIAL IV ONE (09:15)
[2025-03-31] MEDS: MIDAZOLAM DRIP 50 mg/50mL 50 ML IV ONE (09:20)
[2025-03-31] MEDS: MIDAZOLAM DRIP 50 mg/50mL 50 ML IV SCH (09:20)
[2025-03-31] MEDS ORDERED: DEXTROSE (50%) 50ML SYRG IV PRN (10:00)
[2025-03-31 10:02] LABS: Urine Budding Yeast FEW /hpf (None Seen); Urine Protein, UAD 2+ (Negative)
--- NOTE | 2025-03-31 10:07 | DVH ---
EXAM: XY CHEST PORTABLE Indication: sob Technique: Single frontal view of the chest was obtained Comparison: XY CHEST PORTABLE on DOS: 01/12/25, XY CHEST PORTABLE on DOS: 11/28/24, XY CHEST PORTABLE on DOS: 10/05/24, CHEST TWO VIEWS ROUTINE on DOS: 10/20/19 FINDINGS: Lines and Tubes: Endotracheal tube projects 3 cm above the osmel. Enteric tube tip projects over the expected region of the stomach. Right internal jugular central venous catheter tip projects over the superior vena cava. Lungs: No focal consolidation. Pleura: No effusion. No pneumothorax. Cardiomediastinal contours: Unremarkable Bones: No acute osseous abnormality. IMPRESSION: Lines and tubes in appropriate position.
[2025-03-31] MEDS: INSULIN DRIP 100 UNIT/100ML 100 ML IV SCH ×2 (10:15→22:44)
[2025-03-31] MEDS: InsuLIN REG 1unit/0.01ml Soln (100units/ml) IV ONE (10:16)
[2025-03-31] MEDS: INSULIN LANTUS (GLARGINE) 1 /0.01ml (100units/ml) SC ONE (10:16)
[2025-03-31] MEDS: SODIUM CHLORIDE 0.9% 1,000 ML IV ONE ×2 (10:17→10:39)
[2025-03-31] MEDS: CLINDAMYCIN 300MG IV 50 ML IV ONE (10:17)
[2025-03-31] MEDS: ACCU-CHEK COMFORT CURVE STRIP VI SCH (10:39)
[2025-03-31 10:41] LABS: Hematocrit 37.1 % (36.0-46.0); Hemoglobin 12.3 g/dL (12.2-16.2); Mean Corpuscular Hemoglobin 28.8 pg (28.0-32.0); Mean Corpuscular Volume 86.9 fL (80.0-100.0); Nucleated Red Blood Cells % 0.1 %
[2025-03-31 10:47] LABS: Alanine Aminotransferase 22 U/L (7-40); Albumin 3.7 g/dL (3.2-4.8); Anion Gap 10 (5-15); BUN/Creatinine Ratio 16.3 (10.0-20.0); Blood Urea Nitrogen 20 mg/dL (9-23); Calcium 9.2 mg/dL (8.7-10.4); Carbon Dioxide 24 mmol/L (20-31); Chloride 100 mmol/L (98-107); Potassium 4.3 mmol/L (3.5-5.1); Total Protein 6.5 g/dL (5.7-8.2)
[2025-03-31 10:49] LABS: Alkaline Phosphatase 167 U/L (46-116); Sodium 134 mmol/L (136-145)
[2025-03-31 10:51] LABS: Glucose 531 mg/dL (74-106)
[2025-03-31 10:54] LABS: INR 0.96 (0.9-1.15); Partial Thromboplastin Time 24.7 SEC (24.5-34.5); Prothrombin Time 10.2 sec (9.3-11.8)
[2025-03-31 11:03] LABS: Bilirubin, Total 0.6 mg/dL (0.2-1.0)
[2025-03-31] MEDS: PROPOFOL 100 ML IV SCH (11:36)
[2025-03-31] MEDS: PROPOFOL 100 ML IV ONE (11:36)
--- NOTE | 2025-03-31 11:58 | DVH ---
EXAM: CT HEAD WITHOUT CONTRAST INDICATION: altered TECHNIQUE: CT of the head without intravenous contrast. Coronal and sagittal reformatted images are s ubmitted. Radiation Dose : 1. Head: CT Dose: CTDI volume is 59.02 mGy. Dose-length product is 1.71 mGy*cm The dose indicators for CT are the volume Computed Tomography (CT) Dose Index (CTDIvol) and the Dose Length Product (DLP), and are measured in units of mGy and mGy-cm, respectively. These indicators are not patient dose, but values generated from the CT scanner acquisition factors. The report includes radiation exposure data for exposures received during this examination. All CT scans at this medical facility are performed using dose modulation techniques as appropriate to a performed exam including the following: Automated exposure control was utilized; adjustment of the MA and/or KV according to patient size; and use of iterative reconstruction technique. COMPARISON: CT HEAD WITHOUT CONTRAST on DOS: 10/05/24 FINDINGS: There is no evidence of acute intracranial hemorrhage, extra-axial collection, mass effect, midline s hift, herniation or hydrocephalus. The ventricles, sulci and cisterns are age appropriate. The jarvis-white differentiation is intact. The visualized paranasal sinuses and mastoid air cells are clear. No depressed calvarial fracture. The surrounding soft tissues are unremarkable. IMPRESSION: 1. No evidence of acute intracranial abnormality.
[2025-03-31] MEDS: NOREPINEPHRINE 8 MG/250ML KIT 250 ML IV SCH (12:14)
[2025-03-31 12:28] LABS: Base Excess -6.4 mmol/L (-2.0-3.0)
[2025-03-31] MEDS: CEFEPIME 1GM/ 50ML 50 ML IV SCH (13:39)
[2025-03-31] MEDS: fentaNYL Drip 2500mCg/250mlNS 250 ML IV SCH (14:32)
[2025-03-31] MEDS ORDERED: NITROGLYCERIN 0.4 MG SL TAB SL PRN (15:30)
[2025-03-31] MEDS ORDERED: MORPHINE SULFATE INJ 2 MG/ml SYRG IV PRN (15:30)
[2025-03-31] MEDS ORDERED: DOCUSATE SOD 100 MG CAP PO PRN (15:30)
[2025-03-31] MEDS ORDERED: ONDANSETRON HCL 4 MG/2 ML VIAL IV PRN (15:30)
[2025-03-31] MEDS ORDERED: ACETAMINOPHEN 325 MG TAB PO PRN (15:30)
[2025-03-31] MEDS ORDERED: LOS25T PO (15:32)
[2025-03-31] MEDS ORDERED: INSLANTI SC (15:32)
[2025-03-31] MEDS: CEFEPIME 1GM/ 50ML 50 ML IV ONE (16:00)
--- NOTE | 2025-03-31 16:30 | DVHHP2 ---
History of Present Illness Reason for Visit: ALOC History of Present Illness Myra Wright is a 54-year-old female with past medical history of hypertension, and diabetes who was brought to the hospital for ALOC. Patient's son states this morning she was saying that her blood sugar was elevated and that she does not feel well. As the morning went on she became more confused, prompting her son to call EMS to bring her to the hospital. On arrival to the ER patient was not verbally responsive, she had her eyes open and would only respond to painful stimuli. Patient was intubated shortly after arrival to ER. Her blood sugar was > 500 and she was started on IV insulin drip. Patient does have a diabetic foot wound on her right foot. She has been seen and treated for it. Cardiovascular: HTN Endocrine: Diabetes Past Surgical History: None Smoke: No ALCOHOL: none Drugs: None Lives: with Family Domestic Violence: Neg Review of Systems Constitutional: Yes: Weakness, Malaise; No: Fever, Chills, Sweats, Other (ALOC) Eyes: No: Pain, Vision change, Conjunctivae inflammation, Eyelid inflammation, Other, Redness ENT: No: Ear pain, Ear discharge, Nose pain, Nose discharge, Nose congestion, Mouth pain, Mouth swelling, Throat pain, Throat swelling, Other Respiratory: No: Cough, Dry, Shortness of breath, SOB with excertion, Wheezing, Hemoptysis, Pleuritic Pain, Sputum, Wheezing, Other Cardiovascular: No: Chest Pain, Palpitations, Orthopnea, Paroxysmal Noc. Dyspnea, Edema, Lt Headedness, Other Gastrointestinal: No: Nausea, Vomiting, Abdominal Pain, Diarrhea, Constipation, Melena, Hematochezia, Other Genitourinary: No Dysuria, No Frequency, No Incontinence, No Hematuria, No Retention, No Other Musculoskeletal: No: other, neck pain, shoulder pain, arm pain, back pain, hand pain, leg pain, foot pain Skin: No: Rash, Lesions, Jaundice, Bruising, Other Neurological: Change in speech, Confusion; No: Weakness, Numbness, Incoordination, Seizures, Other Allergies: Coded Allergies: Chicken Allergy (Verified Allergy, Mild, 01/15/25) Lactose Intolerance (GI) (Verified Allergy, Mild, 01/15/25) Acetaminophen (Verified Allergy, Unknown, 10/20/19) Hydrocodone (Verified Allergy, Unknown, 10/20/19) Metformin (Verified Allergy, Unknown, 10/20/19) Penicillins (Verified Allergy, Unknown, 10/20/19) Medications Current Medications Medications Dose Ordered Sig/Gordon Route Start Time Stop Time Status Last Admin Dose Admin Midazolam HCl 50 ml @ 1 mls/hr Q24H IV 03/31/25 09:00 03/31/25 09:20 15 MLS/HR Norepinephrine Bitartrate 250 ml @ 3.75 mls/hr Q24H IV 03/31/25 09:00 03/31/25 12:14 3.75 MLS/HR Cefepime HCl 50 ml @ 12.5 mls/hr Q8HR IV 03/31/25 14:00 03/31/25 13:39 12.5 MLS/HR Insulin Human (Reg)/Sodium Chloride 100 ml @ 0.5 mls/hr Q24H IV 03/31/25 10:00 03/31/25 10:15 6 MLS/HR Diagnostic Test (Pha) 1 strip Q90MIN 03/31/25 10:30 03/31/25 15:08 1 STRIP Dextrose 50 ml PRN PRN IV 03/31/25 10:00 Propofol 100 ml @ 3.135 mls/ hr Q24H IV 03/31/25 11:00 03/31/25 11:36 3.135 MLS/HR Fentanyl Citrate 250 ml @ 2.5 mls/hr Q24H IV 03/31/25 14:00 03/31/25 14:32 2.5 MLS/HR Exam Vital Signs Vital Signs Date Time Temp Pulse Resp B/P (MAP) Pulse Ox O2 Delivery O2 Flow Rate FiO2 03/31/25 14:56 03/31/25 14:45 79 20 100 03/31/25 11:30 30 03/31/25 09:35 Mechanical Ventilator+ 03/31/25 08:39 98.2 98.2 General Appearance: Other (Sedated and intubated) HEENT: Atraumatic, PERRLA Respiratory: Clear to auscultation, Normal air movement, Other (intubated) Cardiovascular: Regular rate, Normal S1, Normal S2 Abdominal: Normal bowel sounds, Soft, No tenderness Extremities: No clubbing, No cyanosis, No edema, Normal pulses Skin: No significant lesion (right foot diabetic wound) Neuro: Other (intubated adn sedated) Labs/Xrays Labs Test 03/31/25 11:33 03/31/25 10:05 03/31/25 09:58 03/31/25 09:30 Range/Units Blood Gas Specimen Type Arterial Blood Gas Sample Site Right radial Blood Gas Patient Temperature 37.0 Arterial Blood Date Drawn [id number] Arterial Blood pH 7.405 7.350-7.450 Arterial Blood Partial Pressure CO2 27.5 L 32.0-45.0 mmHg Arterial Blood Partial Pressure O2 149.1 H 83.0-108.0 mmHg Arterial Blood HCO3 16.8 L 21.0-28.0 mmol/L Arterial Blood Oxygen Saturation 98.8 H 94.0-98.0 % Arterial Blood Base Excess -6.4 L -2.0-3.0 mmol/L Arterial Blood Oxyhemoglobin 97.4 94.0-98.0 % Arterial Blood Carboxyhemoglobin 0.9 0.5-1.5 % Arterial Blood Methemoglobin 0.5 0.0-1.5 % Jaren Test Modified Blood Gas Total Hemoglobin 12.90 12.0-16.0 g/dL Blood Gas Set Respiration Rate 20.0 Blood Gas Modality Vent - ac FiO2 % 50.0 Blood Gas Tidal Volume 500.0 Blood Gas PEEP or CPAP 5.0 White Blood Count 8.3 4.4-10.8 10^3/uL Red Blood Count 4.27 4.0-5.20 10^6/uL Hemoglobin 12.3 12.2-16.2 g/dL Hematocrit 37.1 36.0-46.0 % Mean Corpuscular Volume 86.9 80.0-100.0 fL Mean Corpuscular Hemoglobin 28.8 28.0-32.0 pg Mean Corpuscular Hemoglobin Concent 33.2 32.0-36.0 g/dL Red Cell Distribution Width 14.8 H 11.8-14.3 % Platelet Count 215 140-450 10^3/uL Mean Platelet Volume 9.6 6.9-10.8 fL Neutrophils (%) (Auto) 86.9 H 37.0-80.0 % Lymphocytes (%) (Auto) 8.4 L 10.0-50.0 % Monocytes (%) (Auto) 3.9 0.0-12.0 % Eosinophils (%) (Auto) 0.5 0.0-7.0 % Basophils (%) (Auto) 0.3 0.0-2.0 % Neutrophils # (Auto) 7.2 1.6-8.6 10 ^3/uL Lymphocytes # (Auto) 0.7 0.4-5.4 10 ^3/uL Monocytes # (Auto) 0.3 0-1.3 10 ^3/uL Eosinophils # (Auto) 0 0-0.8 10 ^3/uL Basophils # (Auto) 0 0-0.2 10 ^3/uL Nucleated Red Blood Cells 0.1 % Prothrombin Time 10.2 9.3-11.8 sec Prothrombin Time INR 0.96 0.9-1.15 Activated Partial Thromboplast Time 24.7 24.5-34.5 SEC Sodium Level 134 L 136-145 mmol/L Potassium Level 4.3 3.5-5.1 mmol/L Chloride Level 100 98-107 mmol/L Carbon Dioxide Level 24 20-31 mmol/L Anion Gap 10 5-15 Blood Urea Nitrogen 20 9-23 mg/dL Creatinine 1.23 H 0.550-1.02 mg/dL Glomerular Filtration Rate Calc 52 >90 mL/min BUN/Creatinine Ratio 16.3 10.0-20.0 Serum Glucose 531 *H 74-106 mg/dL Calcium Level 9.2 8.7-10.4 mg/dL Total Bilirubin 0.6 0.2-1.0 mg/dL Aspartate Amino Transferase (AST) 21 13-40 U/L Alanine Aminotransferase (ALT) 22 7-40 U/L Alkaline Phosphatase 167 H 46-116 U/L Total Protein 6.5 5.7-8.2 g/dL Albumin 3.7 3.2-4.8 g/dL Beta-Hydroxybutyric Acid 1.480 H < 0.4 mmol/L Lactic Acid Level 1.2 0.4-2.0 mmol/L Urine Color Colorless Yellow Urine Clarity Clear Clear Urine pH 6.5 5.0-9.0 Urine Specific Tennyson 1.021 1.001-1.035 Urine Protein 2+ H Negative Urine Ketones 1+ H Negative Urine Blood 1+ H Negative /uL Urine Nitrite Negative Negative Urine Bilirubin Negative Negative Urine Urobilinogen Normal Negative mg/dL Urine Leukocyte Esterase 2+ Negative /uL Urine RBC 2 0 - 4 /hpf Urine Microscopic WBC 57 H 0-5 /HPF Urine Squamous Epithelial Cells None seen <5 /hpf Urine Bacteria None seen None Seen /hpf Urine Yeast (Budding) Few None Seen /hpf Urine Glucose 4+ H Normal mg/dL EXAM: XY CHEST PORTABLE FINDINGS: Lines and Tubes: Endotracheal tube projects 3 cm above the osmel. Enteric tube tip projects over the expected region of the stomach. Right internal jugular central venous catheter tip projects over the superior vena cava. Lungs: No focal consolidation. Pleura: No effusion. No pneumothorax. Cardiomediastinal contours: Unremarkable Bones: No acute osseous abnormality. IMPRESSION: Lines and tubes in appropriate position. EXAM: CT HEAD WITHOUT CONTRAST FINDINGS: There is no evidence of acute intracranial hemorrhage, extra-axial collection, mass effect, midline shift, herniation or hydrocephalus. The ventricles, sulci and cisterns are age appropriate. The jarvis-white differentiation is intact. The visualized paranasal sinuses and mastoid air cells are clear. No depressed calvarial fracture. The surrounding soft tissues are unremarkable. IMPRESSION: 1. No evidence of acute intracranial abnormality. SEPSIS Sepsis Screen Date sepsis recognized/suspect: Mar 31, 2025 Time Sepsis recognized/suspect: 839 Recent Procedure: No On Antibiotic Therapy: No Respiratory Rate >20: No Heart Rate >90: No Temp<36 C (96.8 F) or >38.3 C: No SBP <90 or MAP <65 mmHG: No New Acute Mental Status Change: No Is the patient on CPAP, BIPAP,: No Physician Orders Midazolam Drip 50 Mg/50ml (Versed Drip 5 (03/31/25 09:00) Rass Sedation Scale Q1HR (03/31/25 08:51) Norepinephrine 8 Mg/250ml Kit (Levophed) (03/31/25 09:00) Chest Portable (03/31/25 09:07) Accucheck (03/31/25 09:07) Blood Culture (03/31/25 09:07) Cefepime 1gm/ 50ml (Maxipime 1gm/50ml) (03/31/25 14:00) Notify Md If Map <65 Or Bp<90 (03/31/25 09:07) If Map<65 Start Vasopressor (03/31/25 09:07) Sepsis Reassesment After Fluid (03/31/25 10:07) Sodium Chloride 0.9% (03/31/25 09:15) Communication Order (03/31/25 09:21) Vent Ip Init (03/31/25 09:15) Respiratory Culture W/ Gs (03/31/25 09:21) Abg W/ Co-Ox (03/31/25 10:15) Head Without Contrast (03/31/25 09:46) Insulin Drip 100 Unit/100ml (Myxredlin 1 (03/31/25 10:00) Glucose Blood (Accu-Chek Comfort Curve T (03/31/25 10:30) D/C All Diabetic Medications (03/31/25 09:46) Insulin Drip Protocol (03/31/25 09:46) Dextrose 50% Syringe (03/31/25 10:00) Propofol (Diprivan) (03/31/25 11:00) Fentanyl Drip 2500mcg/250mlns (03/31/25 14:00) Vital Signs Date Time Temp Pulse Resp B/P (MAP) Pulse Ox O2 Delivery O2 Flow Rate FiO2 03/31/25 14:56 03/31/25 14:45 79 20 135/76 (95) 100 03/31/25 14:37 78 03/31/25 14:32 109/71 03/31/25 14:30 77 16 116/69 (85) 98 03/31/25 14:15 78 20 106/68 (81) 98 03/31/25 14:00 82 18 109/71 (84) 98 03/31/25 13:45 80 17 98/68 (78) 98 03/31/25 13:30 83 20 116/79 (91) 98 03/31/25 13:15 85 16 129/71 (90) 98 03/31/25 13:00 127/70 03/31/25 13:00 85 14 127/70 (89) 98 03/31/25 12:45 87 15 156/89 (111) 98 03/31/25 12:30 87 21 129/77 (94) 100 03/31/25 12:15 85 20 81/55 (64) 100 03/31/25 12:14 87/48 03/31/25 12:00 86 20 87/48 (61) 100 03/31/25 11:45 85 21 104/84 (91) 100 03/31/25 11:36 113/65 03/31/25 11:30 20 100 30 03/31/25 11:30 85 21 104/84 (91) 100 03/31/25 11:15 86 22 100/60 (73) 100 03/31/25 11:00 89 20 113/65 (81) 100 03/31/25 10:45 91 18 77/42 (54) 99 03/31/25 10:30 92 21 127/73 (91) 99 03/31/25 10:15 03/31/25 10:15 91 20 138/86 (103) 99 03/31/25 10:00 95 21 151/99 (116) 98 03/31/25 09:45 93 20 92/55 (67) 97 03/31/25 09:35 Mechanical Ventilator+ 30 30 03/31/25 09:30 93 20 101/58 (72) 97 03/31/25 09:20 171/105 03/31/25 09:20 108 20 171/105 (127) 100 50 03/31/25 09:15 171/105 03/31/25 09:15 94 8 171/105 (127) 97 03/31/25 09:11 93 03/31/25 08:39 98.2 100 18 169/100 96 98.2 Laboratory Tests Test 03/31/25 09:58 03/31/25 10:05 Lactic Acid Level 1.2 mmol/L (0.4-2.0) White Blood Count 8.3 10^3/uL (4.4-10.8) Medications Medications Dose Ordered Sig/Gordon Route Start Time Stop Time Status Last Admin Dose Admin Cefepime HCl 50 ml @ 12.5 mls/hr Q8HR IV 03/31/25 14:00 03/31/25 13:39 12.5 MLS/HR Clindamycin Phosphate 50 ml @ 50 mls/hr ONCE ONCE IV 03/31/25 09:15 03/31/25 10:14 DC 03/31/25 10:17 50 MLS/HR Diagnostic Test (Pha) 1 strip Q90MIN 03/31/25 10:30 03/31/25 15:08 1 STRIP Etomidate 20 mg ONCE ONCE IV 03/31/25 09:00 03/31/25 09:01 DC 03/31/25 09:14 20 MG Fentanyl Citrate 250 ml @ 2.5 mls/hr Q24H IV 03/31/25 14:00 03/31/25 14:32 2.5 MLS/HR Insulin Glargine 15 units ONCE ONCE SC 03/31/25 10:00 03/31/25 10:01 DC 03/31/25 10:16 15 UNITS Insulin Human (Reg)/Sodium Chloride 100 ml @ 0.5 mls/hr Q24H IV 03/31/25 10:00 03/31/25 10:15 6 MLS/HR Insulin Human Regular 10 units ONCE ONCE IV 03/31/25 09:45 03/31/25 09:46 DC 03/31/25 10:16 10 UNITS Midazolam HCl 50 ml @ 1 mls/hr Q24H IV 03/31/25 09:00 03/31/25 09:20 15 MLS/HR Norepinephrine Bitartrate 250 ml @ 3.75 mls/hr Q24H IV 03/31/25 09:00 03/31/25 12:14 3.75 MLS/HR Propofol 100 ml @ 3.135 mls/ hr Q24H IV 03/31/25 11:00 03/31/25 11:36 3.135 MLS/HR Rocuronium Hubbell 100 mg ONCE ONCE IV 03/31/25 09:00 03/31/25 09:01 DC 03/31/25 09:15 100 MG Sodium Chloride 1,000 ml @ 150 mls/hr Q6H40M ONCE IV 03/31/25 09:15 03/31/25 15:54 03/31/25 10:39 150 MLS/HR Sodium Chloride 1,000 ml @ 1,000 mls/hr Q1H ONCE IV 03/31/25 09:15 03/31/25 10:14 DC 03/31/25 10:17 1,000 MLS/HR Assessment/Plan Assessment/Plan Assessment: Acute metabolic encephalopathy, DKA, Uncontrolled diabetes, Hypertension, Plan: Admit to ICU, Insulin drip, Wound care consult, IV antibiotics, IV hydration, IV sedation, IV Vasopressors as needed, Home medications held at this time, Plan discussed with: Patient Date of Service: Mar 31, 2025 Billing Provider: BENJAMIN HOLLANDP Common Visit Codes: [id number] INP/OBS CARE (HIGH) BENJAMIN HOLLAND [facility] Mar 31, 2025 16:30
[2025-03-31] MEDS: INSULIN LANTUS (GLARGINE) 1 /0.01ml (100units/ml) SC SCH (21:48)
[2025-03-31] MEDS: CLINDAMYCIN 600MG IV 50 ML IV SCH (22:07)
[2025-03-31] MEDS: CEFEPIME 2GM/50ML NS 50 ML IV SCH (22:08)
[2025-04-01] VITALS (105 sets, daily range): BP systolic 83–142; BP diastolic 49–110; PULSE 57–74; RESP 17–20; TEMP 96.8–98.8; O2SAT 93–100
[2025-04-01] MEDS: INSULIN DRIP 100 UNIT/100ML 100 ML IV SCH ×3 (01:40→06:14)
--- NOTE | 2025-04-01 03:04 | DVH ---
CHEST RADIOGRAPH Indication: Intubated Technique: 1 view Comparison: XY CHEST PORTABLE on DOS: 03/31/25, XY CHEST PORTABLE on DOS: 01/12/25, XY CHEST PORTABLE on DOS: 11/28/24, XY CHEST PORTABLE on DOS: 10/05/24 FINDINGS: Lines and Tubes: Unchanged endotracheal tube, enteric tube, and right IJ catheter. Lungs/Pleura: Similar appearance of low lung volumes and perihilar interstitial prominence. No evide nce of new consolidation, or pleural abnormality. Cardiomediastinum: Unchanged. Other: Unchanged osseous structures. IMPRESSION: 1. No significant change from the previous study. Stable support devices. Decreased lung volumes with interstitial opacities.
[2025-04-01 05:30] LABS: Hematocrit 36.2 % (36.0-46.0); Hemoglobin 12.3 g/dL (12.2-16.2); Mean Corpuscular Hemoglobin 29.3 pg (28.0-32.0); Mean Corpuscular Volume 85.9 fL (80.0-100.0); Nucleated Red Blood Cells % 0.0 %
[2025-04-01 05:54] LABS: Alanine Aminotransferase 22 U/L (7-40); Anion Gap 11 (5-15); BUN/Creatinine Ratio 16.8 (10.0-20.0); Bilirubin, Total 0.3 mg/dL (0.2-1.0); Blood Urea Nitrogen 18 mg/dL (9-23); Carbon Dioxide 23 mmol/L (20-31); Sodium 142 mmol/L (136-145); Total Protein 6.0 g/dL (5.7-8.2)
[2025-04-01 05:59] LABS: Albumin 3.1 g/dL (3.2-4.8); Alkaline Phosphatase 116 U/L (46-116); Calcium 8.5 mg/dL (8.7-10.4); Chloride 108 mmol/L (98-107); Glucose 124 mg/dL (74-106); Potassium 2.9 mmol/L (3.5-5.1)
[2025-04-01] MEDS: POTASSIUM EFFERVESENT TAB 25 MEQ GT ONE (06:59)
[2025-04-01] MEDS: POTASSIUM CHL 20MEQ/100ML 100 ML IV ONE ×2 (06:59→15:21)
[2025-04-01] MEDS ORDERED: POTASSIUM CHL 20MEQ/100ML 100 ML IV SCH (07:00)
[2025-04-01 07:39] LABS: Base Excess -1.6 mmol/L (-2.0-3.0)
--- NOTE | 2025-04-01 11:09 | DVHPN2 ---
Assessment/Plan Assessment/Plan ICU note 54 F with IDDM, HTN admitted for AMS and hyperglycemia, intubated in ED and started on empiric abx and insulin drip. Prior ESBL treated with flushes? Current UCX clean Physical exam Intubated, sedated on mechanical ventilation PERRLA MMM Mechanical breath sounds S1 S2 RRR Abdomen soft Trace LE edema R plantar scabbed wound, clean Vent 500, 20, 5, 30% Drips Fentanyl Propofol Versed Levophed Lines ETT R IJ TLC Cantu Labs, EKG, imaging reviewed Assessment and plan Likely HHS No DKA IDDM uncontrolled Acute hypoxic RF req mechanical ventilation Acute metabolic encephalopathy Possible PNA GP vs GN Distributive vs septic shock BETTY likely hemodynamic mediated HTN Insulin drip c/w mechanical vent c/w pressor keep MAP >65 strict I/O send serum osm treat hypoglycemia with d5, continue insulin replete K IV fluid empiric ceft and azithro strt TF tomorrow diet NPO dvt ppx lovenox GI ppx protonix full code condition critical prognosis poor 90 minutes critical care time spent Plan discussed with: Son My Orders Orders - ELA CHRISTIAN MD Procedure Category Date Status Time Osmolality, Serum LAB 04/01/25 Logged 10:36 Basic Metabolic Panel LAB 04/01/25 Logged 10:36 Date of Service: Apr 01, 2025 Billing Provider: LEA CHRISTIAN MD Common Visit Codes: [id number] CARE 30-74 MIN, [id number] CARE-EACH +30MIN LEA CHRISTINA MD Apr 01, 2025 11:09
[2025-04-01 12:25] LABS: Potassium 3.9 mmol/L (3.5-5.1); Sodium 142 mmol/L (136-145)
[2025-04-01 12:26] LABS: Anion Gap 8 (5-15); Carbon Dioxide 25 mmol/L (20-31)
[2025-04-01] MEDS: SODIUM CHLORIDE 0.9% 1,000 ML IV ONE (12:29)
[2025-04-01 12:32] LABS: BUN/Creatinine Ratio 14.4 (10.0-20.0); Blood Urea Nitrogen 15 mg/dL (9-23)
[2025-04-01 12:39] LABS: Calcium 8.3 mg/dL (8.7-10.4); Chloride 109 mmol/L (98-107); Glucose 110 mg/dL (74-106)
[2025-04-01] MEDS: NOREPINEPHRINE 8 MG/250ML KIT 250 ML IV SCH (15:30)
[2025-04-01] MEDS: ACCU-CHEK COMFORT CURVE STRIP VI SCH (22:30)
[2025-04-01] MEDS ORDERED: DEXTROSE (50%) 50ML SYRG IV PRN ×3 (22:30→23:45)
[2025-04-01] MEDS ORDERED: INSULIN LANTUS (GLARGINE) 1 /0.01ml (100units/ml) SC ONE (23:30)
[2025-04-01] MEDS ORDERED: INSULIN DRIP 100 UNIT/100ML 100 ML IV SCH ×2 (23:30→23:45)
[2025-04-02] VITALS (115 sets, daily range): BP systolic 82–162; BP diastolic 51–91; PULSE 21–90; RESP 18–20; TEMP 82–99; O2SAT 90–98
[2025-04-02] MEDS ORDERED: ACCU-CHEK COMFORT CURVE STRIP VI SCH
[2025-04-02] MEDS: ACCU-CHEK COMFORT CURVE STRIP VI SCH ×2 (00:04→22:02)
[2025-04-02] MEDS: INSULIN DRIP 100 UNIT/100ML 100 ML IV SCH ×2 (00:27→05:21)
[2025-04-02 05:21] LABS: Hematocrit 35.8 % (36.0-46.0); Hemoglobin 12.1 g/dL (12.2-16.2); Mean Corpuscular Hemoglobin 29.4 pg (28.0-32.0); Mean Corpuscular Volume 87.0 fL (80.0-100.0); Nucleated Red Blood Cells % 0.1 %
[2025-04-02 05:23] LABS: Anion Gap 9 (5-15); Carbon Dioxide 23 mmol/L (20-31); Potassium 3.8 mmol/L (3.5-5.1); Sodium 142 mmol/L (136-145)
[2025-04-02 05:25] LABS: Calcium 8.2 mg/dL (8.7-10.4); Chloride 110 mmol/L (98-107)
[2025-04-02 05:29] LABS: BUN/Creatinine Ratio 12.6 (10.0-20.0); Blood Urea Nitrogen 13 mg/dL (9-23)
[2025-04-02 05:37] LABS: Glucose 182 mg/dL (74-106)
[2025-04-02] MEDS: cefTRIAXone 1GM/50ML D5W 50 ML IV SCH (09:10)
[2025-04-02 09:40] LABS: Base Excess -4.0 mmol/L (-2.0-3.0)
--- NOTE | 2025-04-02 09:45 | DVHPN2 ---
Assessment/Plan Assessment/Plan ICU note 54 F with IDDM, HTN admitted for AMS and hyperglycemia, intubated in ED and started on empiric abx and insulin drip. Prior ESBL treated with flushes? Current UCX clean seen today. osm normalized, still on pressor, usntable for transfer. titrating down pressors Physical exam Intubated, sedated on mechanical ventilation PERRLA MMM Mechanical breath sounds S1 S2 RRR Abdomen soft Trace LE edema R plantar scabbed wound, clean Vent 500, 20, 5, 30% Drips Fentanyl Propofol Versed Levophed Lines ETT R IJ TLC Cantu Labs, EKG, imaging reviewed Assessment and plan Likely HHS No DKA IDDM uncontrolled Acute hypoxic RF req mechanical ventilation Acute metabolic encephalopathy Possible PNA GP vs GN Distributive vs septic shock BETTY likely hemodynamic mediated HTN Insulin drip c/w mechanical vent c/w pressor keep MAP >65 strict I/O send serum osm normalized, still nost likely hhs treat hypoglycemia with d5, continue insulin replete K IV fluid empiric ceft and azithro strt TF tomorrow diet NPO dvt ppx lovenox GI ppx protonix full code condition critical prognosis poor 45 minutes critical care time spent Plan discussed with: Other My Orders Orders - LEA CHRISTIAN MD Procedure Category Date Status Time Ceftriaxone 1gm/50ml PHA 04/02/25 In Process D5w (Rocephin) 09:00 Azithromycin 500mg/ PHA 04/02/25 In Process 250ml (Zithromax 50 10:00 Pantoprazole PHA 04/02/25 In Process (Protonix) 10:00 Apply: ANTONIO 04/01/25 In Process 12:45 Norepinephrine 8 PHA 04/01/25 In Process Mg/250ml Kit 15:30 Date of Service: Apr 02, 2025 Billing Provider: LEA CHRISTIAN MD Common Visit Codes: [id number] CARE 30-74 MIN LEA CRHISTIAN MD Apr 02, 2025 09:45
[2025-04-02] MEDS: AZITHROMYCIN 500MG/ 250ML 250 ML IV SCH (10:36)
[2025-04-02] MEDS: PANTOPRAZOLE 40 MG/10 ML VIAL INJ IV SCH (10:40)
[2025-04-02] MEDS ORDERED: Glucerna 1.2 Cal 1Liter BOTTLE GT SCH (14:00)
[2025-04-02] MEDS ORDERED: SODIUM CHLORIDE 0.9% 1,000 ML IV ONE (21:15)
[2025-04-02] MEDS: FUROSEMIDE 40 MG/4 ML VIAL IV ONE (21:39)
[2025-04-02] MEDS: SODIUM CHLORIDE 0.9% 1,000 ML IV ONE (21:40)
[2025-04-02 22:00] LABS: Chloride 111 mmol/L (98-107); Potassium 3.7 mmol/L (3.5-5.1); Sodium 143 mmol/L (136-145)
[2025-04-02] MEDS: InsuLIN REG 1unit/0.01ml Soln (100units/ml) SC SCH (22:00)
[2025-04-02 22:01] LABS: Anion Gap 10 (5-15); Carbon Dioxide 22 mmol/L (20-31)
[2025-04-02 22:06] LABS: BUN/Creatinine Ratio 11.4 (10.0-20.0); Blood Urea Nitrogen 13 mg/dL (9-23)
[2025-04-02 22:08] LABS: Calcium 8.1 mg/dL (8.7-10.4); Glucose 123 mg/dL (74-106)
[2025-04-03] VITALS (107 sets, daily range): BP systolic 82–207; BP diastolic 50–125; PULSE 68–112; RESP 16–27; TEMP 97.9–98.9; O2SAT 93–100
[2025-04-03 05:09] LABS: Hematocrit 36.0 % (36.0-46.0); Hemoglobin 12.0 g/dL (12.2-16.2); Mean Corpuscular Hemoglobin 29.1 pg (28.0-32.0); Mean Corpuscular Volume 87.1 fL (80.0-100.0); Nucleated Red Blood Cells % 0.1 %
[2025-04-03 05:18] LABS: Potassium 3.6 mmol/L (3.5-5.1); Sodium 141 mmol/L (136-145)
[2025-04-03 05:19] LABS: Anion Gap 11 (5-15); Carbon Dioxide 22 mmol/L (20-31)
[2025-04-03 05:24] LABS: BUN/Creatinine Ratio 10.0 (10.0-20.0); Blood Urea Nitrogen 12 mg/dL (9-23); Calcium 8.1 mg/dL (8.7-10.4); Chloride 108 mmol/L (98-107)
[2025-04-03 05:25] LABS: Glucose 241 mg/dL (74-106)
--- NOTE | 2025-04-03 05:47 | DVH ---
CHEST RADIOGRAPH Indication: INTUBATED Technique: 1 view Comparison: XY CHEST PORTABLE on DOS: 04/01/25, XY CHEST PORTABLE on DOS: 03/31/25, XY CHEST PORTABLE o n DOS: 01/12/25, XY CHEST PORTABLE on DOS: 11/28/24, XY CHEST PORTABLE on DOS: 10/05/24 FINDINGS: Lines and Tubes: Unchanged endotracheal tube, enteric tube, and right IJ catheter. Lungs/Pleura: Unchanged. Cardiomediastinum: Unchanged. Other: Unchanged osseous structures. IMPRESSION: 1. No significant change from the previous study. Persistent interstitial opacities with similar george g volumes. Probable left pleural effusion. Stable support devices.
[2025-04-03 06:57] LABS: Base Excess -5.9 mmol/L (-2.0-3.0)
[2025-04-03] MEDS: INSULIN LISPRO (HUMAN) 100 UNITS/ML ML SC SCH (10:29)
[2025-04-03] MEDS: DEXMEDETOMIDINE HCL IN D5W 100 ML IV SCH (11:23)
--- NOTE | 2025-04-03 14:10 | DVHPN2 ---
Assessment/Plan Assessment/Plan ICU note 54 F with IDDM, HTN admitted for AMS and hyperglycemia, intubated in ED and started on empiric abx and insulin drip. Prior ESBL treated with flushes? Current UCX clean seen today. off pressors, sedation vacation. swith to basal bolus insulin Physical exam Intubated, sedated on mechanical ventilation PERRLA MMM Mechanical breath sounds S1 S2 RRR Abdomen soft Trace LE edema R plantar scabbed wound, clean Vent 500, 20, 5, 30% Drips Fentanyl Propofol Versed Levophed Lines ETT R IJ TLC Cantu Labs, EKG, imaging reviewed Assessment and plan Likely HHS No DKA IDDM uncontrolled Acute hypoxic RF req mechanical ventilation Acute metabolic encephalopathy Possible PNA GP vs GN Distributive vs septic shock BETTY likely hemodynamic mediated HTN Insulin drip c/w mechanical vent c/w pressor keep MAP >65 strict I/O send serum osm normalized, still nost likely hhs treat hypoglycemia with d5, continue insulin replete K IV fluid empiric ceft and azithro strt TF tomorrow diet TF dvt ppx lovenox GI ppx protonix full code condition critical prognosis poor 35 minutes critical care time spent Plan discussed with: Son My Orders Orders - LEA CHRISTIAN MD Procedure Category Date Status Time Chest Portable XY 04/03/25 Resulted 04:00 Cpap Trial For Am ORDERS 04/03/25 Transmitted 09:09 Cpap/Sed Vacation Med ORDERS 04/03/25 Transmitted Weaning 09:09 Insulin Lantus PHA 04/04/25 In Process (Glargine) (Lantus) 07:00 Insulin Lispro PHA 04/03/25 In Process (Human) (Humalog) 10:00 Dexmedetomidine Hcl PHA 04/03/25 In Process In D5w (Precedex) 11:15 Date of Service: Apr 03, 2025 Billing Provider: LAE CHRISTIAN MD Common Visit Codes: [id number] CARE 30-74 MIN LEA CHRISTIAN MD Apr 03, 2025 14:10
[2025-04-04] VITALS (87 sets, daily range): BP systolic 99–192; BP diastolic 57–106; PULSE 72–102; RESP 9–25; TEMP 98–99.1; O2SAT 90–100
[2025-04-04 05:11] LABS: Hematocrit 34.7 % (36.0-46.0); Hemoglobin 11.8 g/dL (12.2-16.2); Mean Corpuscular Hemoglobin 29.6 pg (28.0-32.0); Mean Corpuscular Volume 87.3 fL (80.0-100.0); Nucleated Red Blood Cells % 0.1 %
[2025-04-04 05:14] LABS: Potassium 3.6 mmol/L (3.5-5.1); Sodium 140 mmol/L (136-145)
[2025-04-04 05:15] LABS: Anion Gap 11 (5-15); Carbon Dioxide 22 mmol/L (20-31)
[2025-04-04 05:20] LABS: BUN/Creatinine Ratio 9.9 (10.0-20.0); Blood Urea Nitrogen 10 mg/dL (9-23)
[2025-04-04 05:21] LABS: Calcium 8.5 mg/dL (8.7-10.4); Chloride 107 mmol/L (98-107); Glucose 258 mg/dL (74-106)
--- NOTE | 2025-04-04 05:44 | DVH ---
CHEST RADIOGRAPH Indication: INTUBATED Technique: Single frontal view of the chest was obtained COMPARISON: XY CHEST PORTABLE on DOS: 04/03/25, XY CHEST PORTABLE on DOS: 04/01/25, XY CHEST PORTABLE o n DOS: 03/31/25, XY CHEST PORTABLE on DOS: 01/12/25, XY CHEST PORTABLE on DOS: 11/28/24 FINDINGS: Lines and Tubes: Endotracheal tube, enteric catheter and right central venous catheter in satisfactor y position Lungs: Congestion Pleura: No effusion. No pneumothorax. Cardiomediastinal contours: Unremarkable Bones: Unremarkable IMPRESSION: Lines and tubes in satisfactory position. No significant interval change.
[2025-04-04] MEDS: INSULIN LANTUS (GLARGINE) 1 /0.01ml (100units/ml) SC SCH (06:32)
[2025-04-04 08:49] LABS: Base Excess -5.2 mmol/L (-2.0-3.0)
[2025-04-04 12:38] LABS: Base Excess -4.1 mmol/L (-2.0-3.0)
--- NOTE | 2025-04-04 18:44 | DVHPN2 ---
Assessment/Plan Assessment/Plan ICU note 54 F with IDDM, HTN admitted for AMS and hyperglycemia, intubated in ED and started on empiric abx and insulin drip. Prior ESBL treated with flushes? Current UCX clean seen today. doing well on cpap, extubated later during the day. if stbale tomorrow will get ss for crane transfer. dc tlc Physical exam aox3 follows command PERRLA MMM coarse breath sounds S1 S2 RRR Abdomen soft Trace LE edema R plantar scabbed wound, clean Labs, EKG, imaging reviewed Assessment and plan Likely HHS No DKA IDDM uncontrolled Acute hypoxic RF req mechanical ventilation Acute metabolic encephalopathy Possible PNA GP vs GN Distributive vs septic shock BETTY likely hemodynamic mediated HTN Insulin drip c/w mechanical vent c/w pressor keep MAP >65 strict I/O send serum osm normalized, still nost likely hhs treat hypoglycemia with d5, continue insulin replete K IV fluid empiric ceft and azithro strt TF tomorrow diet TF dvt ppx lovenox GI ppx protonix full code condition critical prognosis poor 35 minutes critical care time spent Plan discussed with: Patient, Son My Orders Orders - LEA CHRISTIAN MD Procedure Category Date Status Time Abg W/ Co-Ox RT 04/04/25 Logged 05:54 Abg W/ Co-Ox RT 04/04/25 Logged 12:25 Communication Order ORDERS 04/04/25 Transmitted 17:00 Consistent DIET 04/04/25 Transmitted Carb([facility]Diabetes Dinner Date of Service: Apr 04, 2025 Billing Provider: LEA CHRISTIAN MD Common Visit Codes: [id number] CARE 30-74 MIN LEA CHRISTIAN MD Apr 04, 2025 18:44
[2025-04-04] MEDS: hydrOXYzine 25 MG TAB or CAP PO PRN (21:03)
[2025-04-05] VITALS (25 sets, daily range): BP systolic 132–208; BP diastolic 56–125; PULSE 80–115; RESP 9–26; TEMP 97.9–99.6; O2SAT 68–100
[2025-04-05] MEDS: INSULIN LANTUS (GLARGINE) 1 /0.01ml (100units/ml) SC SCH (06:06)
[2025-04-05] MEDS: INSULIN LISPRO (HUMAN) 100 UNITS/ML ML SC SCH (09:44)
[2025-04-05 10:33] LABS: Chloride 106 mmol/L (98-107); Potassium 4.0 mmol/L (3.5-5.1); Sodium 139 mmol/L (136-145)
[2025-04-05 10:34] LABS: Anion Gap 14 (5-15)
[2025-04-05 10:35] LABS: Hematocrit 39.3 % (36.0-46.0); Hemoglobin 12.7 g/dL (12.2-16.2); Mean Corpuscular Hemoglobin 28.8 pg (28.0-32.0); Mean Corpuscular Volume 88.9 fL (80.0-100.0); Nucleated Red Blood Cells % 0.0 %
[2025-04-05 10:39] LABS: BUN/Creatinine Ratio 12.0 (10.0-20.0); Blood Urea Nitrogen 10 mg/dL (9-23)
[2025-04-05 10:40] LABS: Calcium 8.6 mg/dL (8.7-10.4); Carbon Dioxide 19 mmol/L (20-31); Glucose 274 mg/dL (74-106)
[2025-04-05] MEDS: ONDANSETRON HCL 4 MG/2 ML VIAL IV PRN ×2 (12:39→19:47)
[2025-04-05] MEDS: HALOPERIDOL LACTATE 5 MG/ML INJ VIAL IM ONE (15:00)
[2025-04-05] MEDS: METOCLOPRAMIDE HCL 5MG/ml INJ 2ml VIAL IV ONE (15:40)
[2025-04-05] MEDS: MORPHINE SULFATE 4 MG/ML SYR/VIAL IV ONE (15:40)
--- NOTE | 2025-04-05 15:55 | DVHPN2 ---
Assessment/Plan Assessment/Plan ICU note 54 F with IDDM, HTN admitted for AMS and hyperglycemia, intubated in ED and started on empiric abx and insulin drip. Prior ESBL treated with flushes? Current UCX clean seen today. on 2L NC, tried to turn off with significant WOB increase. on 1L now. have nausea and vomiting, per patient has cyclic vomiting. not tolerating haldol, givin reglan and zofran. Physical exam aox3 follows command PERRLA MMM coarse breath sounds S1 S2 RRR Abdomen soft Trace LE edema R plantar scabbed wound, clean Labs, EKG, imaging reviewed Assessment and plan Likely HHS No DKA IDDM uncontrolled Acute hypoxic RF req mechanical ventilation Acute metabolic encephalopathy Possible PNA GP vs GN Distributive vs septic shock BETTY likely hemodynamic mediated HTN cyclic vomiting? anxiety? Insulin drip c/w mechanical vent c/w pressor keep MAP >65 strict I/O send serum osm normalized, still nost likely hhs treat hypoglycemia with d5, continue insulin replete K IV fluid empiric ceft and azithro diet diabetic dvt ppx lovenox GI ppx protonix full code condition critical prognosis poor 35 minutes critical care time spent Plan discussed with: Patient My Orders Orders - LEA CHRISTIAN MD Procedure Category Date Status Time Consistent DIET 04/04/25 Transmitted Carb(Ccho)Diabetes Dinner Insulin Lantus PHA 04/05/25 In Process (Glargine) (Lantus) 07:00 Insulin Lispro PHA 04/05/25 In Process (Human) (Humalog) 07:00 Ondansetron Hcl PHA 04/05/25 In Process (Zofran) 12:45 Clonazepam Tablet PHA 04/05/25 In Process (Klonopin Tablet) 10:00 Date of Service: Apr 05, 2025 Billing Provider: LEA CHRISTIAN MD Common Visit Codes: [id number] CARE 30-74 MIN LEA CHRISTIAN MD Apr 05, 2025 15:55
[2025-04-05] MEDS ORDERED: METOCLOPRAMIDE HCL 5MG/ml INJ 2ml VIAL IV PRN (16:00)
[2025-04-05] MEDS: MORPHINE SULFATE INJ 2 MG/ml SYRG IV PRN (19:48)
[2025-04-05] MEDS: clonazePAM 0.5 MG TAB PO SCH (20:41)
[2025-04-05] MEDS: METOCLOPRAMIDE HCL 5MG/ml INJ 2ml VIAL IV PRN (20:48)
[2025-04-05] MEDS: hydrALAZINE HCL 20 MG/ML VL IV PRN (22:10)
[2025-04-05] MEDS: ACCU-CHEK COMFORT CURVE STRIP VI SCH (22:10)
[2025-04-06] VITALS (22 sets, daily range): BP systolic 127–206; BP diastolic 67–111; PULSE 95–119; RESP 11–27; TEMP 98.6–99.1; O2SAT 94–99
[2025-04-06] MEDS: LORazepam 2MG/ML-1ML VIAL IV PRN (06:21)
[2025-04-06] MEDS: INSULIN LISPRO (HUMAN) 100 UNITS/ML ML SC SCH ×3 (06:41→17:54)
[2025-04-06 07:39] LABS: Hematocrit 42.0 % (36.0-46.0); Hemoglobin 14.1 g/dL (12.2-16.2); Mean Corpuscular Hemoglobin 29.5 pg (28.0-32.0); Mean Corpuscular Volume 87.7 fL (80.0-100.0); Nucleated Red Blood Cells % 0.1 %
[2025-04-06 07:40] LABS: Chloride 103 mmol/L (98-107); Potassium 4.3 mmol/L (3.5-5.1); Sodium 139 mmol/L (136-145)
[2025-04-06 07:41] LABS: Anion Gap 23 (5-15); Calcium 9.3 mg/dL (8.7-10.4)
[2025-04-06 07:46] LABS: BUN/Creatinine Ratio 14.4 (10.0-20.0); Blood Urea Nitrogen 15 mg/dL (9-23)
[2025-04-06 07:50] LABS: Carbon Dioxide 13 mmol/L (20-31); Glucose 381 mg/dL (74-106)
[2025-04-06] MEDS: MORPHINE SULFATE INJ 2 MG/ml SYRG IV PRN (11:56)
[2025-04-06] MEDS: PROCHLORPERAZINE EDISYLATE 5 MG/ML 2ML VIAL IV ONE (11:56)
[2025-04-06] MEDS: MAGNESIUM SULFATE 1GM/100ML 100 ML IV SCH ×2 (13:59→15:00)
--- NOTE | 2025-04-06 14:27 | DVHDS2 ---
Discharge Summary Date of Admission Mar 31, 2025 at 15:23 Date of Discharge: Apr 06, 2025 Labs/Diagnostic Data: Laboratory Results Test 04/06/25 11:16 04/06/25 07:00 04/04/25 12:21 04/04/25 08:27 POC Glucose 358 mg/dl (70-106) White Blood Count 10.1 10^3/uL (4.4-10.8) Red Blood Count 4.79 10^6/uL (4.0-5.20) Hemoglobin 14.1 g/dL (12.2-16.2) Hematocrit 42.0 % (36.0-46.0) Mean Corpuscular Volume 87.7 fL (80.0-100.0) Mean Corpuscular Hemoglobin 29.5 pg (28.0-32.0) Mean Corpuscular Hemoglobin Concent 33.7 g/dL (32.0-36.0) Red Cell Distribution Width 15.4 % (11.8-14.3) Platelet Count 269 10^3/uL (140-450) Mean Platelet Volume 9.1 fL (6.9-10.8) Neutrophils (%) (Auto) 90.9 % (37.0-80.0) Lymphocytes (%) (Auto) 5.5 % (10.0-50.0) Monocytes (%) (Auto) 3.4 % (0.0-12.0) Eosinophils (%) (Auto) 0.0 % (0.0-7.0) Basophils (%) (Auto) 0.2 % (0.0-2.0) Neutrophils # (Auto) 9.2 10 ^3/uL (1.6-8.6) Lymphocytes # (Auto) 0.6 10 ^3/uL (0.4-5.4) Monocytes # (Auto) 0.3 10 ^3/uL (0-1.3) Eosinophils # (Auto) 0 10 ^3/uL (0-0.8) Basophils # (Auto) 0 10 ^3/uL (0-0.2) Nucleated Red Blood Cells 0.1 % Sodium Level 139 mmol/L (136-145) Potassium Level 4.3 mmol/L (3.5-5.1) Chloride Level 103 mmol/L (98-107) Carbon Dioxide Level 13 mmol/L (20-31) Anion Gap 23 (5-15) Blood Urea Nitrogen 15 mg/dL (9-23) Creatinine 1.04 mg/dL (0.550-1.02) Glomerular Filtration Rate Calc 64 mL/min (>90) BUN/Creatinine Ratio 14.4 (10.0-20.0) Serum Glucose 381 mg/dL (74-106) Calcium Level 9.3 mg/dL (8.7-10.4) Magnesium Level 1.6 mg/dL (1.6-2.6) Blood Gas Specimen Type Arterial Blood Gas Sample Site Left radial Blood Gas Patient Temperature 37.0 Arterial Blood Date Drawn [id number] Arterial Blood pH 7.381 (7.350-7.450) Arterial Blood Partial Pressure CO2 35.2 mmHg (32.0-45.0) Arterial Blood Partial Pressure O2 87.9 mmHg (83.0-108.0) Arterial Blood HCO3 20.4 mmol/L (21.0-28.0) Arterial Blood Oxygen Saturation 95.5 % (94.0-98.0) Arterial Blood Base Excess -4.1 mmol/L (-2.0-3.0) Arterial Blood Oxyhemoglobin 94.8 % (94.0-98.0) Arterial Blood Carboxyhemoglobin 0.3 % (0.5-1.5) Arterial Blood Methemoglobin 0.4 % (0.0-1.5) Jaren Test Modified Blood Gas Total Hemoglobin 12.00 g/dL (12.0-16.0) Blood Gas Modality Vent - cpap Blood Gas Spontaneous Rate 19 FiO2 % 30.0 Blood Gas Spontaneous Tidal Volume 539 Blood Gas Pressure Support 7 Blood Gas PEEP or CPAP 5.0 Specimen Drawn By Boyd [facility] Blood Gas Set Respiration Rate 20.0 Blood Gas Tidal Volume 500.0 Test 04/01/25 11:51 04/01/25 04:53 03/31/25 10:05 03/31/25 09:58 Hemoglobin A1c 13.3 % A1C (<5.7) Serum Osmolality 297 mOsm/kg (278-298) Total Bilirubin 0.3 mg/dL (0.2-1.0) Aspartate Amino Transferase (AST) 61 U/L (13-40) Alanine Aminotransferase (ALT) 22 U/L (7-40) Alkaline Phosphatase 116 U/L (46-116) Total Protein 6.0 g/dL (5.7-8.2) Albumin 3.1 g/dL (3.2-4.8) Beta-Hydroxybutyric Acid 0.114 mmol/L (< 0.4) Prothrombin Time 10.2 sec (9.3-11.8) Prothrombin Time INR 0.96 (0.9-1.15) Activated Partial Thromboplast Time 24.7 SEC (24.5-34.5) Lactic Acid Level 1.2 mmol/L (0.4-2.0) Test 03/31/25 09:30 Urine Color Colorless (Yellow) Urine Clarity Clear (Clear) Urine pH 6.5 (5.0-9.0) Urine Specific [place] 1.021 (1.001-1.035) Urine Protein 2+ (Negative) Urine Ketones 1+ (Negative) Urine Blood 1+ /uL (Negative) Urine Nitrite Negative (Negative) Urine Bilirubin Negative (Negative) Urine Urobilinogen Normal mg/dL (Negative) Urine Leukocyte Esterase 2+ /uL (Negative) Urine RBC 2 /hpf (0 - 4) Urine Microscopic WBC 57 /HPF (0-5) Urine Squamous Epithelial Cells None seen /hpf (<5) Urine Bacteria None seen /hpf (None Seen) Urine Yeast (Budding) Few /hpf (None Seen) Urine Glucose 4+ mg/dL (Normal) Other Laboratory Tests 04/06/25 07:00 Brief Hx & Hospital Course: 54 F with IDDM, HTN admitted for AMS and hyperglycemia, intubated in ED and started on empiric abx and insulin drip. Prior ESBL treated with flushes? Current UCX clean. pressors titrated down, insulin drip continued with ivf and K. vent requireiments also titrated down. patient was later placed on cpap and extubated. afterwards she had concerns of vomiting, reported having cyclic voming and had prior workup with GI. started on zofran and then added reglan, haldol (which she had a reaction too, not seizure) and switched to compazine. morphine given for pain management. stable to transfer to [place]. also started on diet and klonazepam. vomiting on and off. Condition at Discharge: Stable Final Diagnosis/Problems List Likely HHS No DKA IDDM uncontrolled Acute hypoxic RF req mechanical ventilation Acute metabolic encephalopathy Possible PNA GP vs GN Distributive vs septic shock BETTY likely hemodynamic mediated HTN cyclic vomiting? anxiety? Discharge Disposition: Acute Care Facility Discharge Instruct/Medications Scheduled Cefdinir (Cefdinir), 1 CAP PO BID Clindamycin Hcl (Clindamycin Hcl), 1 CAP PO TID Insulin Glargine (Lantus), 65 UNIT SC BID, (Reported) Losartan Potassium (Losartan Potassium), 1 TAB PO DAILY, (Reported) Discharge Statement: "Patient was advised to return to the ER or call 911 if any headaches, dizziness, shortness of breath, chest pain, abdominal pain, bleeding, fevers, or worsening of medical condition. Patient was counseled about treatment plan, medications, possible side effects, patientverbalized understanding. All questions were answered to the best of my ability. This discharge took greater then 30 minutes in planning, reviewing documentation, counseling the patient, and discussing with other team members." ASSESSMENT ASSESSMENT Assessment Date of Service: Apr 06, 2025 Billing Provider: LEA CHRISTIAN MD Common Visit Codes: [id number] CARE 30-74 MIN LEA CHRISTIAN MD Apr 06, 2025 14:27
[2025-04-06] MEDS: INSULIN LISPRO (HUMAN) 100 UNITS/ML ML SC ONE ×2 (14:45→14:49)
[2025-04-06] MEDS: LOSARTAN POTASSIUM 50 MG TAB PO ONE (16:34)
[2025-04-06] MEDS: PROCHLORPERAZINE EDISYLATE 5 MG/ML 2ML VIAL IV PRN (16:43)
[2025-04-07] MEDS ORDERED: INSULIN LANTUS (GLARGINE) 1 /0.01ml (100units/ml) SC SCH (07:00)
[2025-04-07] MEDS ORDERED: LOSARTAN POTASSIUM 50 MG TAB PO SCH (10:00)
[2025-04-07] MEDS ORDERED: VALSARTAN 80 MG TAB PO SCH (10:00)
== END 2025-04-06 21:05 | disposition short-term general hospital (02) | DRG 870 ==
LOC: ER 08:39 → OVERFLOW 15:23 → ICU CENTRL 17:31
PROVIDERS: ADMIT Student in an Organized Health Care Education/Training Program; ATTEND Student in an Organized Health Care Education/Training Program
PROC: 5A1955Z Respiratory Ventilation, Greater than 96 Consecutive Hours (ICD-10-PCS; principal; 2025-03-31)
PROC: 0BH17EZ Insertion of Endotracheal Airway into Trachea, Via Natural or Artificial Opening (ICD-10-PCS; 2025-03-31)
PROC: 02HV33Z Insertion of Infusion Device into Superior Vena Cava, Percutaneous Approach (ICD-10-PCS; 2025-03-31)
DX: A41.9 Sepsis, unspecified organism (principal); E11.00 Type 2 diabetes mellitus with hyperosmolarity without nonketotic hyperglycemic-hyperosmolar coma (NKHHC); G93.41 Metabolic encephalopathy; J15.69 Pneumonia due to other Gram-negative bacteria; R65.21 Severe sepsis with septic shock; J96.01 Acute respiratory failure with hypoxia; J15.9 Unspecified bacterial pneumonia; N17.9 Acute kidney failure, unspecified; I10 Essential (primary) hypertension; Z79.4 Long term (current) use of insulin; Z88.6 Allergy status to analgesic agent; Z88.5 Allergy status to narcotic agent; Z88.0 Allergy status to penicillin; Z91.018 Allergy to other foods
CPT/HCPCS: 31500; 36415; 36556; 36600; 70450; 71045; 80048; 80053; 81001; 82010; 82805; 82962; 83036; 83605; 83735; 83930; 85025; 85610; 85730; 87040; 87070; 87081; 87086; 87088; 87205; 92950; 94002; 94003; 96374; 99291; 99292; G0378; J0692; J1815; J2405; J2470; J2704; J3480; J3490